=== PATIENT | female | born 1950 | race Hispanic/Latino ===

== ENCOUNTER → 2020-12-10 | Outpatient (CLI) | payer OTHER, MEDICARE ==
[~2020-12-10] MED LIST: ASPI-1197 PO; ATEN50TA PO; CHOL400C9 PO; COLC0.6C3 PO; FEBU40TA PO; FURO20TA4 PO; LEVO200T10 PO; LISI20TA24 PO; MEDR10TA11 PO; PRAV20TA4 PO; TRAM50TA4 PO
== END | disposition home or self-care (01) ==
LOC: SHCH 07:43
PROVIDERS: ATTEND Internal Medicine Cardiovascular Disease
DX: I71.4 Abdominal aortic aneurysm, without rupture (principal); I73.9 Peripheral vascular disease, unspecified; I25.10 Atherosclerotic heart disease of native coronary artery without angina pectoris
CPT/HCPCS: 93880; 93978

== ENCOUNTER → 2021-06-14 | Outpatient (CLI) | payer OTHER, MEDICARE | END | disposition home or self-care (01) | LOC: SHCH 08:31 | PROVIDERS: ATTEND Internal Medicine Cardiovascular Disease | DX: I25.3 Aneurysm of heart (principal); I35.8 Other nonrheumatic aortic valve disorders; R55 Syncope and collapse; I42.0 Dilated cardiomyopathy | CPT/HCPCS: 93306; 93356 ==

== ENCOUNTER 2023-10-28 12:58 | Emergency (ER) | payer OTHER, MEDICARE ==
[~2023-10-28] VITALS: Ht 149.9 cm; Wt 81.6 kg
[2023-10-28] MEDS: ACETAMINOPHEN 500 MG TABLET PO ONE (13:33)
[2023-10-28] MEDS: TETANUS/DIPHTHERIA TOXOID [ADULT] 0.5 ML VIAL IM ONE (13:35)
[2023-10-28 13:56] VITALS: BP 154/78; PULSE 76; RESP 18; O2SAT 96
[2023-10-28] MEDS: OCTYL 2-CYANOACRYLATE 1 EACH TP SCH (14:00)
== END 2023-10-28 14:07 | disposition home or self-care (01) ==
LOC: EDH 12:58
DX: S01.81XA Laceration without foreign body of other part of head, initial encounter (principal); Z79.82 Long term (current) use of aspirin; Z79.890 Hormone replacement therapy; Z79.899 Other long term (current) drug therapy; Z88.8 Allergy status to other drugs, medicaments and biological substances; Z91.041 Radiographic dye allergy status; X58.XXXA Exposure to other specified factors, initial encounter; Y93.89 Activity, other specified; Y92.89 Other specified places as the place of occurrence of the external cause; Y99.8 Other external cause status
CPT/HCPCS: 12011; 90471; 90714

== ENCOUNTER → 2023-11-27 | Outpatient (CLI) | payer OTHER, MEDICARE | END | disposition home or self-care (01) | LOC: RAH 13:29 | PROVIDERS: ATTEND Family Medicine | DX: M85.88 Other specified disorders of bone density and structure, other site (principal); N95.0 Postmenopausal bleeding | CPT/HCPCS: 77080 ==

== ENCOUNTER 2025-01-07 14:33 | Inpatient (IN) | payer OTHER, MEDICARE ==
[~2025-01-07] VITALS: Ht 147.3 cm; Wt 81.7 kg
--- NOTE | 2025-01-07 14:48 | ERN ---
General Chief Complaint: Shortness of Breath Stated Complaint: SOB Time Seen by MD: 14:35 History of Present Illness Initial Comments 58-year-old female with multiple comorbidities including hypertension dyslipidemia CKD obesity nonischemic cardiomyopathy and gout brought in by EMS from the [facility] for chest pains and dyspnea. Patient reports recently she has been having increasing shortness of breath, chest discomfort some pressure associated with exertion. She had an EKG performed at the [facility] which showed some ST changes appreciated in V1 and V2 prompting her to come to the ER today. Medical history dyslipidemia hypertension hypothyroid obesity CAD CKD Allergies: Coded Allergies: iodine (Unverified Allergy, Unknown, 05/06/18) Home Meds Reported Medications Nitroglycerin (Nitroglycerin) 0.4 Mg Tab.subl, 1 TAB SL AD for chest pain, #25 TAB 0 Refills 1st sign of attack; may repeat every 5 mins; if pain persists after 3 in 15 min, medical attention is recommended 01/07/25 Dapagliflozin Propanediol (Farxiga) 10 Mg Tablet, 1 TAB PO DAILY for 30 Days, #30 TAB 0 Refills 01/07/25 Levothyroxine Sodium (Levothyroxine Sodium) 150 Mcg Tablet, 1 TAB PO DAILY for 30 Days, #30 TAB 0 Refills 01/07/25 Allopurinol (Allopurinol) 100 Mg Tablet, 1 TAB PO DAILY for 30 Days, #30 TAB 0 Refills 01/07/25 Ranolazine (RANEXA) 500 Mg Tab.er.12h, 500 MG PO AD, TAB 01/07/25 Ferrous Sulfate (Ferrous Sulfate) 325 Mg (65 Mg Iron) Tablet, 325 MG PO AD, TAB 01/07/25 Febuxostat (Uloric) 40 Mg Tablet, 40 MG PO DAILY, TAB 05/06/18 Colchicine (Colchicine) 0.6 Mg Capsule, 0.6 MG PO QIDP, CAP GOUT 05/06/18 Cholecalciferol (Vitamin D3) (Vitamin D3) 400 Unit Capsule, 400 UNIT PO DAILY, CAP 05/06/18 Tramadol Hcl (Tramadol HCl) 50 Mg Tablet, 1-2 TAB PO TIDP, TAB pain 05/06/18 Pravastatin Sodium (Pravastatin Sodium) 20 Mg Tablet, 20 MG PO HS, TAB 05/06/18 Medroxyprogesterone Acetate (Medroxyprogesterone Acetate) 10 Mg Tablet, 10 MG PO DAILY, TAB 05/06/18 Levothyroxine Sodium (Levothyroxine Sodium) 200 Mcg Tablet, 200 MCG PO DAILY, TAB 05/06/18 Atenolol (Atenolol) 50 Mg Tablet, 50 MG PO DAILY, TAB 05/06/18 Lisinopril (Lisinopril) 20 Mg Tablet, 20 MG PO DAILY, TAB 05/06/18 Furosemide (Furosemide) 20 Mg Tablet, 20 MG PO DAILY, TAB 05/06/18 Aspirin (Aspirin) 81 Mg Tab.chew, 81 MG PO DAILY, TAB.CHEW 05/06/18 Past Medical History Past Medical History: Anemia, CAD, High Cholesterol, Hypertension, Hypothyroid Past Surgical History: Other Surgical History Other: HEART STENT Female( History) History: Not Applicable ROS Dictation CONSTITUTIONAL: No chills, no fever, no weakness, no diaphoresis, no malaise. HEAD/FACE: No signs of trauma. EENT: No eye pain, no blurred vision, no tearing, no double vision, no ear pain, no ear discharge, no nose pain, no nasal congestion, no throat pain, no throat swelling, no mouth pain. RESPIRATORY: No cough, no orthopnea, no SOB, no stridor, no wheezing. CARDIOVASCULAR: Chest pain exertional dyspnea GASTROINTESTINAL/ABDOMINAL: No abdominal pain, no constipation, no diarrhea, no nausea, no vomiting. GENITOURINARY: No abnormal discharge, no dysuria, no frequent urination, no hematuria. No complaints of pain in the genitals. MUSCULOSKELETAL: No back pain, no gout, no joint pain, no joint swelling, no muscle pain, no muscle stiffness, no neck pain. INTEGUMENTARY: No change in color, no change in hair/nails, no dryness, no lesion, no lumps, no rash. NEUROLOGICAL/PSYCH: No anxiety, not depressed, no emotional problem, no headache, no numbness, no pre-existing deficit, no history of seizures, no tremors, no weakness. HEMATOLOGIC/LYMPHATIC: Not anemic, no history of blood clots, no apparent bleeding, no bruising, glands not swollen. All Systems Negative, Except as Noted. Physical Exam Physical Exam Dictation VITAL SIGNS: Reviewed. GENERAL APPEARANCE: Alert, oriented x3, no acute distress, obese. HEAD AND FACE: Non-traumatic. EYES: PERRL, pink conjunctivas, eyelid no trauma, anterior chamber clear. EARS: Pinnas intact and no signs of trauma or erythema. Ear canals clear and no discharge. TMs no erythema. NOSE: No discharge, no bleeding. OROPHARYNX: Mouth normal, teeth no caries, tongue pink. Pharynx clear, no erythema. Tonsils no exudates, no abscesses noted. Mucous membrane moist. NECK: Supple, non-tender, no thyromegaly, no masses, no JVD, no bruits. BREAST: Deferred. CHEST: No tenderness, no crepitus, no paradoxical movement, no retractions. LUNGS: Clear, well-ventilated, symmetric, no rales, no wheezing, no rhonchi, no stridor, good breath sounds bilaterally. HEART: Regular rate, regular rhythm, no murmur, no gallops. VASCULAR: No peripheral edema. ABDOMEN: Soft, positive bowel sounds, nondistended, no guarding, nontender, no rebound, no masses no hepatomegaly, no splenomegaly, no Adrian's sign, no hernias. RECTAL: Deferred. GENITAL: Deferred. NEUROLOGICAL: Normal speech, gross motor function intact, gross sensory function intact. MUSCULOSKELETAL: Neck nontender, full range of motion, back nontender, full range of motion. EXTREMITIES: Nontender, full range of motion. SKIN: Color pink, dry, no turgor, no rash, no lacerations, no abrasions, no contusions. LYMPHATICS: Deferred. Results Laboratory and Microbiology Lab and Micro Result Laboratory Tests Test 01/07/25 14:50 01/07/25 15:50 01/07/25 16:35 01/07/25 16:50 Blood Gas Specimen Type Arterial Arterial Blood pH 7.387 (7.350-7.450) Arterial Blood Partial Pressure CO2 33 mmHg (32-45) Arterial Blood Partial Pressure O2 75.1 mmHg (83.0-108.0) L Arterial Blood HCO3 19.5 mmol/L (21.0-28.0) L Arterial Blood Oxygen Saturation 95.1 % (94.0-98.0) Arterial Blood Base Excess -4.5 mmol/L (-2.0-3.0) L Blood Gas Temperature 37.0 CELSIUS (35.5-37.0) Blood Gas Flow-by 2.00 L/min (0.00-15.00) Blood Gas Vent Mode 2LNC (ROOM AIR) FiO2 28.0 % Blood Gas Specimen Comment RR DR. SOSA White Blood Count 6.6 K/uL (4.8-10.8) Red Blood Count 3.42 MIL/uL (4.00-5.50) L Hemoglobin 11.7 g/dL (12.0-16.0) L Hematocrit 35.7 % (36-48) L Mean Corpuscular Volume 104.4 fL (79-99) H Mean Corpuscular Hemoglobin 34.2 pg (27.0-33.0) H Mean Corpuscular Hemoglobin Concent 32.8 g/dL (32.0-36.0) Red Cell Distribution Width 14.1 % (11.0-15.5) Platelet Count 129 K/uL (130-400) L Mean Platelet Volume 11.7 fL (7.5-10.5) H Immature Granulocyte % (Auto) 0.5 % (0-1) Neutrophils (%) (Auto) 77.1 % (40.0-77.0) H Lymphocytes (%) (Auto) 11.4 % (21.0-51.0) L Monocytes (%) (Auto) 10.2 % (3.0-13.0) Eosinophils (%) (Auto) 0.5 % (0.0-8.0) Basophils (%) (Auto) 0.3 % (0.0-5.0) Neutrophils # (Auto) 5.1 K/uL (1.8-7.7) Lymphocytes # (Auto) 0.8 K/uL (1.0-4.8) L Monocytes # (Auto) 0.7 K/uL (0.1-1.0) Eosinophils # (Auto) 0.03 K/uL (0.00-0.70) Basophils # (Auto) 0.02 K/uL (0.00-0.20) Absolute Immature Granulocyte (auto 0.03 K/uL (0-1) Nucleated Red Blood Cells 0.0 % (0.0-0.19) Prothrombin Time 11.5 SEC (9.6-11.6) Prothromb Time International Ratio 1.09 (0.85-1.15) Activated Partial Thromboplast Time 22.8 SEC (26.3-35.5) L D-Dimer Quantitative (PE/DVT) 1233 ng/mL (0-500) *H B-Type Natriuretic Peptide 1350 pg/mL (0-100) H Sodium Level 142 mmol/L (136-145) Potassium Level 4.4 mmol/L (3.5-5.1) Chloride Level 109 mmol/L (101-111) Carbon Dioxide Level 22 mmol/L (21-32) Blood Urea Nitrogen 18 mg/dL (7-18) Creatinine 1.2 mg/dL (0.5-1.0) H Glomerular Filtration Rate Calc 47 mL/min (>90) Random Glucose 94 mg/dL (70-105) Total Calcium 8.4 mg/dL (8.5-10.1) L Magnesium Level 1.90 mg/dL (1.80-2.40) Total Creatine Kinase 33 U/L (21-232) Troponin I High Sensitivity 35 ng/L (4-50) Triglycerides Level 48 mg/dL (30-200) Cholesterol Level 112 mg/dL (<200) LDL Cholesterol 60 mg/dL (0-99) HDL Cholesterol 47 mg/dL (35-85) Urine Color YELLOW (YELLOW) Urine Appearance CLEAR (CLEAR) Urine pH 5.5 (5.0-8.0) Urine Specific [place] 1.021 (1.001-1.031) Urine Protein 70 mg/dL (NEGATIVE) H Urine Glucose (UA) >=1000 mg/dL (NEGATIVE) H Urine Ketones NEGATIVE mg/dL (NEGATIVE) Urine Occult Blood +- (TRACE) (NEGATIVE) H Urine Nitrate NEGATIVE (NEGATIVE) Urine Bilirubin NEGATIVE mg/dL (NEGATIVE) Urine Urobilinogen 0.2 mg/dL (0.2-1.0) Urine Leukocyte Esterase NEGATIVE Neisha/uL Urine RBC 2-5 /HPF (0-1) H Urine WBC 2-5 /HPF (0-1) H Urine Squamous Epithelial Cells RARE /HPF (0-2) Urine Bacteria None /HPF (None Seen) Urine Other Casts 1 /LPF (None Seen) Urine Yeast RARE /HPF (None Seen) Test 01/07/25 20:51 Troponin I High Sensitivity 40 ng/L (4-50) Labs Reviewed?: Yes EKG/XRAY/US/CT/MRI EKG Comment Date: 01/07/25 Time: 15:39 Rate: 73 EKG interpretation: Sinus rhythm, probable left atrial enlargement, left bundle branch block, no STEMI Reviewed by ED Attending X-RAY Comment REASON: chest pain ORDERING PHYSICIAN: YASH SOSA DO PROCEDURE: CXR1VW - CHEST 1VW CHEST 1VW HISTORY: Chest pain COMPARISON: 05/06/2018 FINDINGS: A frontal projection of the chest was obtained. Mild bilateral pulmonary infiltrates are seen may be related to mild pulmonary vascular congestion with possible superimposed pneumonitis. The heart is borderline enlarged. Degenerative changes are seen. No evidence of aortic calcification is seen. IMPRESSION: 1. Mild bilateral pulmonary infiltrates are seen may be related to mild pulmonary vascular congestion with possible superimposed pneumonitis. DICTATED BY: CHUCKIE DEWITT MD DATE: 01/07/[address] Scan Comment REASON: dyspnea, elevated d-dimer ORDERING PHYSICIAN: YASH SOSA DO PROCEDURE: CHES PE - CT CHEST PE PROTOCOL WWO CONT CT CHEST PE PROTOCOL WWO CONT HISTORY: Dyspnea COMPARISON: None TECHNIQUE: CT angiography of the chest was performed. The study was performed using angiographic technique with maximum intensity projection reconstruction images. Patient was given 75 cc of Omnipaque through intravenous route. FINDINGS: The study is limited due to poor opacification of pulmonary vasculature. No CT evidence of filling defect is seen to suggest pulmonary embolus. No CT evidence of aortic dissection is seen. There are bilateral pulmonary infiltrates with right more than left. No CT evidence of pleural effusion or pericardial effusion is seen. The heart is enlarged. Coronary artery calcifications are seen. No evidence of adrenal mass is seen. Degenerative changes of the spine are noted. IMPRESSION: 1. No CT evidence of acute pulmonary embolus is seen. There are bilateral pulmonary infiltrates with right more than left. CT was performed with one or more following dose reduction techniques: automated exposure control, adjustment of the mA and kv according to patient's size, or use of a iterative reconstruction technique. DICTATED BY: CHUCKIE DEWITT MD DATE: 01/07/251926 MDM MDM: Differential diagnosis: PE, NV, angina Rationale: 58-year-old female with multiple comorbidities including hypertension dyslipidemia CKD obesity nonischemic cardiomyopathy and gout brought in by EMS from the [facility] for chest pains and dyspnea. Patient reports recently she has been having increasing shortness of breath, chest discomfort some pressure associated with exertion. She had an EKG performed at the [facility] which showed some ST changes appreciated in V1 and V2 prompting her to come to the ER today. Medical history dyslipidemia hypertension hypothyroid obesity CAD CKD Patient on 2 L of O2 nasal cannula. Labs obtained indicate mild anemia with hemoglobin of 11.7, D-dimer 1233, BNP 1 350, creatinine 1.2 consistent with CKD, UA negative for urinary tract infection. Chest x-ray shows mild bilateral pulmonary infiltrates related to pulmonary vascular congestion possible superimposed pneumonitis. Chest CT negative for pulmonary embolism, bilateral infiltrates. Lasix, methylprednisolone and Benadryl administered in the ED. patient was educated on findings, diagnosis and decision for admission. Patient verbalized understanding and agrees with admission. Case discussed with benchmark who accepted admission. There are no social concerns with this patient. I independently interpreted the test that were performed, results were reviewed by me and considered findings on radiology if ordered. Medical management and examination interpretation discussions were had by me with other qualified healthcare professionals as indicated for the patient's care. ED Course Orders Procedure Category Date Status Time Cbc With Differential LAB 01/07/25 Complete 14:39 Prothrombin Time With LAB 01/07/25 Complete INR 14:39 B-Type Natriuretic LAB 01/07/25 Complete Peptide 14:39 Lipid Panel LAB 01/07/25 Complete 14:39 Chest 1vw RAD 01/07/25 Resulted 14:39 12 Lead Ekg Tracing- EKG 01/07/25 Complete Technical 14:39 Magnesium LAB 01/07/25 Complete 14:39 Creatine Kinase, Total LAB 01/07/25 Complete 14:39 Troponin I High LAB 01/07/25 Complete Sensitivity 14:39 Partial LAB 01/07/25 Complete Thromboplastin Time 14:39 Basic Metabolic Panel LAB 01/07/25 Complete 14:39 D-Dimer LAB 01/07/25 Complete 14:39 Arterial Blood Gas RT 01/07/25 Transmitted 14:39 Arterial Blood Gas LAB 01/07/25 Complete 14:50 Ct Chest Pe Protocol CT 01/07/25 Resulted Wwo Cont 17:16 Methylprednisolone PHA 01/07/25 Complete Succ 40mg (Solu-Medro 18:00 Diphenhydramine Hcl PHA 01/07/25 Complete (Benadryl Inj) 18:00 Iohexol (Omnipaque) PHA 01/07/25 Complete 18:48 Urinalysis Profile LAB 01/07/25 Complete 18:59 Furosemide 40mg Vial PHA 01/07/25 Complete (Lasix 40mg Vial) 20:30 Troponin I High LAB 01/07/25 Complete Sensitivity 20:25 Hydralazine 20mg Inj PHA 01/07/25 Complete (Apresoline 20mg In 21:30 Hydralazine 20mg Inj PHA 01/07/25 Complete (Apresoline 20mg In 21:25 Aspirin 81mg Chew Tab PHA 01/08/25 In Process (Aspirin 81mg Chew 09:00 Atorvastatin 40mg PHA 01/08/25 In Process (Lipitor 40mg) 21:00 Nitroglycerin 0.4mg PHA 01/07/25 In Process Sl Tab (Nitrostat) 23:00 Troponin I High LAB 01/08/25 Logged Sensitivity 09:00 Troponin I High LAB 01/08/25 Logged Sensitivity 13:00 Troponin I High LAB 01/08/25 Logged Sensitivity 17:00 Troponin I High LAB 01/08/25 Logged Sensitivity 21:00 Ceftriaxone 1g Vial PHA 01/07/25 In Process (Rocephine 1g Inj) 23:00 Azithromycin 500mg+Ns PHA 01/07/25 In Process 250ml (Azithromyci 23:00 Ipratropium/Albuterol PHA 01/08/25 In Process Neb (Duoneb) 00:00 Current Medications Medications (Trade) Dose Ordered Sig/Melisa Route PRN Reason Start Time Stop Time Status Last Admin Dose Admin Diphenhydramine HCl (BENAdryl INJ) 25 mg ONCE ONCE IV 01/07/25 18:00 01/07/25 18:01 DC 01/07/25 18:45 Furosemide (LASix 40MG VIAL) 40 mg ONCE ONCE IV 01/07/25 20:30 01/07/25 20:31 DC 01/07/25 20:23 Hydralazine HCl (APRESOLine 20MG INJ) 10 mg ONCE ONCE IV 01/07/25 21:30 01/07/25 21:31 DC 01/07/25 21:26 Hydralazine HCl (APRESOLine 20MG INJ) 20 mg STK-MED ONCE .ROUTE 01/07/25 21:25 01/07/25 21:26 DC Iohexol (Omnipaque) 75 ml STK-MED ONCE IV 01/07/25 18:48 01/07/25 18:48 DC Methylprednisolone Sodium Succinate (Solu-medROL 40MG) 40 mg ONCE ONCE IVP 01/07/25 18:00 01/07/25 18:01 DC 01/07/25 18:45 Vital Signs Date Time Temp Pulse Resp B/P (MAP) Pulse Ox O2 Delivery O2 Flow Rate FiO2 01/07/25 21:46 98.4 69 18 156/72 95 Nasal Cannula* 2.0 N/A 01/07/25 20:18 98.4 75 18 175/97 97 Nasal Cannula* 2 01/07/25 18:43 198/98 Room Air* 0 01/07/25 18:34 75 18 166/90 96 Nasal Cannula* 2 01/07/25 16:53 78 18 157/90 97 Room Air* 0 01/07/25 15:29 98.4 74 18 169/77 95 Nasal Cannula* 2 01/07/25 14:35 72 20 160/98 95 Nasal Cannula 2.0 DX & DISP Disposition: Inpatient Decision to Admit Date: Jan 07, 2025 Departure Impression: Primary Impression: Unstable angina Additional Impressions: Hypoxic, Elevated d-dimer, Elevated brain natriuretic peptide (BNP) level Condition: Stable Referrals: YOLANDA LUNDBERG MD (PCP) I performed the substantive portion of the visit. I have reviewed and personally made and approve the management plan that is documented in the notes by myself or the JOZEF. I acknowledge full responsibility for the patient's management plan. YASH SOSA DO Jan 07, 2025 14:47 GEORGE WALKER Jan 07, 2025 20:27
[2025-01-07 14:51] LABS: ABG BASE EXCESS -4.5 mmol/L (-2.0-3.0); ABG HCO3 19.5 mmol/L (21.0-28.0); ABG OXYGEN SATURATION 95.1 % (94.0-98.0); ABG PCO2 33 mmHg (32-45); ABG PH 7.387 (7.350-7.450); PO2, ARTERIAL BG 75.1 mmHg (83.0-108.0); VENT MODE, BG 2LNC (ROOM AIR)
[2025-01-07 15:59] LABS: BASOPHILS # (AUTO) 0.02 K/uL (0.00-0.20); BASOPHILS % (AUTO) 0.3 % (0.0-5.0); EOSINOPHILS # (AUTO) 0.03 K/uL (0.00-0.70); EOSINOPHILS % (AUTO) 0.5 % (0.0-8.0); HEMATOCRIT 35.7 % (36-48); IMMATURE GRANULOCYTE ABSOLUTE 0.03 K/uL (0-1); LYMPHOCYTES # (AUTO) 0.8 K/uL (1.0-4.8); LYMPHOCYTES % (AUTO) 11.4 % (21.0-51.0); MEAN CORPUSCULAR HEMOGLOBIN 34.2 pg (27.0-33.0); MEAN CORPUSCULAR HGB CONC 32.8 g/dL (32.0-36.0); MEAN CORPUSCULAR VOLUME 104.4 fL (79-99); MONOCYTES # (AUTO) 0.7 K/uL (0.1-1.0); MONOCYTES % (AUTO) 10.2 % (3.0-13.0); NEUTROPHILS # (AUTO) 5.1 K/uL (1.8-7.7); NEUTROPHILS % (AUTO) 77.1 % (40.0-77.0); PLATELET COUNT (AUTO) 129 K/uL (130-400); RED BLOOD CELL COUNT(AUTO) 3.42 MIL/uL (4.00-5.50); RED CELL DISTRIBUTION WIDTH 14.1 % (11.0-15.5); WHITE BLOOD COUNT (AUTO) 6.6 K/uL (4.8-10.8)
[2025-01-07 16:16] LABS: B-TYPE NATRIURETIC PEPTIDE 1350 pg/mL (0-100)
[2025-01-07 16:52] LABS: INR 1.09 (0.85-1.15); PROTHROMBIN TIME 11.5 SEC (9.6-11.6)
[2025-01-07 16:54] LABS: PARTIAL THROMBOPLASTIN TIME 22.8 SEC (26.3-35.5)
[2025-01-07 16:55] LABS: CREATININE 1.2 mg/dL (0.5-1.0); POTASSIUM 4.4 mmol/L (3.5-5.1)
[2025-01-07 17:00] LABS: MAGNESIUM 1.9 mg/dL (1.80-2.40)
--- NOTE | 2025-01-07 17:02 | HMCIMG ---
CHEST 1VW HISTORY: Chest pain COMPARISON: 05/06/2018 FINDINGS: A frontal projection of the chest was obtained. Mild bilateral pulmonary infiltrates are seen may be related to mild pulmonary vascular congestion with possible superimposed pneumonitis. The heart is borderline enlarged. Degenerative changes are seen. No evidence of aortic calcification is seen. IMPRESSION: 1. Mild bilateral pulmonary infiltrates are seen may be related to mild pulmonary vascular congestion with possible superimposed pneumonitis.
[2025-01-07] MEDS: DiphenhydrAMINE HCL 50 MG/ML VIAL IV ONE (18:45)
[2025-01-07] MEDS: Solu-medROL 40MG VIAL IVP ONE (18:45)
--- NOTE | 2025-01-07 18:45 | NUR ---
PT WAS MEDICATED ORDERED TO PREVENT ALLERY FROM IV CONTRAST
[2025-01-07] MEDS ORDERED: IOHEXOL-350 75 ML VIAL IV ONE (18:48)
[2025-01-07 19:15] LABS: APPEARANCE,URINE CLEAR (CLEAR); BILIRUBIN,URINE NEGATIVE (NEGATIVE); COLOR,URINE YELLOW (YELLOW); GLUCOSE, URINE (UA) >=1000 mg/dL (NEGATIVE); KETONES,URINE NEGATIVE (NEGATIVE); LEUKOCYTE ESTERASE ,URINE NEGATIVE Leu/uL (NEGATIVE); NITRATE,URINE NEGATIVE (NEGATIVE); PH,URINE 5.5 (5.0-8.0); PROTEIN,URINE 70 mg/dL (NEGATIVE); UROBILINOGEN,URINE 0.2 mg/dL (0.2-1.0)
[2025-01-07 19:16] LABS: ADD UA MICROSCOPIC YES
[2025-01-07 19:17] LABS: MUCUS,URINE RARE LPF (None Seen); OTHER CASTS, URINE 1 /LPF (None Seen); SQUAMOUS EPITHELIAL CELL,UR RARE /HPF (0-2); YEAST,URINE BUDDING RARE /HPF (None Seen)
--- NOTE | 2025-01-07 19:38 | HMCIMG ---
CT CHEST PE PROTOCOL WWO CONT HISTORY: Dyspnea COMPARISON: None TECHNIQUE: CT angiography of the chest was performed. The study was performed using angiographic technique with maximum intensity projection reconstruction images. Patient was given 75 cc of Omnipaque through intravenous route. FINDINGS: The study is limited due to poor opacification of pulmonary vasculature. No CT evidence of filling defect is seen to suggest pulmonary embolus. No CT evidence of aortic dissection is seen. There are bilateral pulmonary infiltrates with right more than left. No CT evidence of pleural effusion or pericardial effusion is seen. The heart is enlarged. Coronary artery calcifications are seen. No evidence of adrenal mass is seen. Degenerative changes of the spine are noted. IMPRESSION: 1. No CT evidence of acute pulmonary embolus is seen. There are bilateral pulmonary infiltrates with right more than left. CT was performed with one or more following dose reduction techniques: automated exposure control, adjustment of the mA and kv according to patient's size, or use of a iterative reconstruction technique.
[2025-01-07] MEDS: furoSEMIDE 40MG VIAL IV ONE (20:23)
[2025-01-07] MEDS: hydrALAZine 20MG/ML VIAL IV ONE (21:26)
[2025-01-07] MEDS: hydrALAZine 20MG/ML VIAL ONE (21:27)
[2025-01-07] MEDS ORDERED: NITR0.4T50 SL (21:43)
[2025-01-07] MEDS ORDERED: DAPA10TA PO (21:43)
[2025-01-07] MEDS ORDERED: FERR-72 PO (21:43)
[2025-01-07] MEDS ORDERED: LEVO150T11 PO (21:43)
[2025-01-07] MEDS ORDERED: ALLO100T PO (21:43)
[2025-01-07] MEDS ORDERED: RANO500T2 PO (21:43)
[2025-01-07] MEDS: AZITHROMYCIN 500MG+NS 250ML 250 ML IVPB SCH (22:52)
[2025-01-07] MEDS: cefTRIAXone 1G VIAL IVPB SCH (22:52)
--- NOTE | 2025-01-07 22:52 | HP ---
[facility] HISTORY & PHYSICAL Date Patient Seen: Jan 07, 2025 Time of Visit: 22:44 Supervising Physician: DR. CHEN Primary Care Physician: DR. CHUYITA GUERRERO Outpatient Specialists: [ ] Inpatient Consults: [ ] PROBLEM LIST: 1. UNSTABLE ANGINA 2. CHRONIC KIDNEY DISEASE STAGE 3 3. ESSENTIAL HYPERTENSION 4. ACUTE COMPLICATED CYSTITIS 5. MORBID OBESITY 6. BILATERAL LOWER LOBE PNEUMONIA 7. ACUTE HYPOXIC RESPIRATORY FAILURE CHIEF COMPLAINT: Chest pain, shortness of breath. HPI: Patient is a 74-year-old female with past medical history significant for hypertension, hyperlipidemia, coronary artery disease, cardiomyopathy, and a surgical history of hysterectomy, cardiac stent placement, presented to emergency department complaining of midsternal chest pain associated with cough for two days. Patient reports that for the past two days, she has been experiencing increased work of breathing associated with midsternal chest pain rated as 6/10 in pain scale. Today, patient decided come to the emergency department for further evaluation and treatment. Patient denies fever, chills, nausea, vomiting, diarrhea, dizziness, or any other symptoms. The workup in the emergency department shows a D-dimer of 1233, elevated BNP , creatinine 1.2, GFR of 47. CTA chest shows bilateral lower lobe pneumonia. Chest x-ray showed pulmonary vascular congestion. Patient will be admitted to medical telemetry floor for further evaluation and treatment. PAST MEDICAL HX: see above PAST SURGICAL HX: noncontributory SOCIAL HISTORY: No tobacco, ETOH, or illicit drug use Coded Allergies: iodine (Unverified Allergy, Unknown, 05/06/18) REVIEW OF SYSTEMS: 12 point ROS reviewed with patient. Pertinent positives mentioned above. Otherwise negative. PHYSICAL EXAM: GENERAL: alert, weak, awake oriented x 3 HEENT: EOMI, Sclera non icteric, moist mucosa NECK: Supple, no JVD, trachea midline LUNGS: Diminished bilaterally, oxygen 2 L nasal cannula HEART: Regular rate and rhythm. Normal S1 and S2, without murmurs ABD: Abdomen soft, nontender. Bowel sounds present EXT: No clubbing cyanosis or edema NEURO: Alert and oriented to person, follows commands Vital Signs (last 8hr) Date Time Temp Pulse Resp B/P (MAP) Pulse Ox O2 Delivery O2 Flow Rate FiO2 01/07/25 21:46 98.4 70 18 162/72 95 Nasal Cannula* 2.0 N/A 01/07/25 20:18 98.4 75 18 175/97 97 Nasal Cannula* 2 28 01/07/25 18:43 198/98 Room Air* 0 21 01/07/25 18:34 75 18 166/90 96 Nasal Cannula* 2 28 01/07/25 16:53 78 18 157/90 97 Room Air* 0 21 01/07/25 15:29 98.4 74 18 169/77 95 Nasal Cannula* 2 28 LABS: Hematology Labs: Test 01/07/25 15:50 Range/Units White Blood Count 6.6 4.8-10.8 K/uL Red Blood Count 3.42 L 4.00-5.50 MIL/uL Hemoglobin 11.7 L 12.0-16.0 g/dL Hematocrit 35.7 L 36-48 % Mean Corpuscular Volume 104.4 H 79-99 fL Mean Corpuscular Hemoglobin 34.2 H 27.0-33.0 pg Mean Corpuscular Hemoglobin Concent 32.8 32.0-36.0 g/dL Red Cell Distribution Width 14.1 11.0-15.5 % Platelet Count 129 L 130-400 K/uL Mean Platelet Volume 11.7 H 7.5-10.5 fL Immature Granulocyte % (Auto) 0.5 0-1 % Neutrophils (%) (Auto) 77.1 H 40.0-77.0 % Lymphocytes (%) (Auto) 11.4 L 21.0-51.0 % Monocytes (%) (Auto) 10.2 3.0-13.0 % Eosinophils (%) (Auto) 0.5 0.0-8.0 % Basophils (%) (Auto) 0.3 0.0-5.0 % Neutrophils # (Auto) 5.1 1.8-7.7 K/uL Lymphocytes # (Auto) 0.8 L 1.0-4.8 K/uL Monocytes # (Auto) 0.7 0.1-1.0 K/uL Eosinophils # (Auto) 0.03 0.00-0.70 K/uL Basophils # (Auto) 0.02 0.00-0.20 K/uL Absolute Immature Granulocyte (auto 0.03 0-1 K/uL Nucleated Red Blood Cells 0.0 0.0-0.19 % Chemistry Labs: Test 01/07/25 20:51 01/07/25 16:35 01/07/25 15:50 Range/Units Troponin I High Sensitivity 40 4-50 ng/L Sodium Level 142 136-145 mmol/L Potassium Level 4.4 3.5-5.1 mmol/L Chloride Level 109 101-111 mmol/L Carbon Dioxide Level 22 21-32 mmol/L Blood Urea Nitrogen 18 7-18 mg/dL Creatinine 1.2 H 0.5-1.0 mg/dL Glomerular Filtration Rate Calc 47 >90 mL/min Random Glucose 94 70-105 mg/dL Total Calcium 8.4 L 8.5-10.1 mg/dL Magnesium Level 1.90 1.80-2.40 mg/dL Total Creatine Kinase 33 21-232 U/L Triglycerides Level 48 30-200 mg/dL Cholesterol Level 112 <200 mg/dL LDL Cholesterol 60 0-99 mg/dL HDL Cholesterol 47 35-85 mg/dL B-Type Natriuretic Peptide 1350 H 0-100 pg/mL Coagulation Labs: Test 01/07/25 15:50 Range/Units Prothrombin Time 11.5 9.6-11.6 SEC Prothromb Time International Ratio 1.09 0.85-1.15 Activated Partial Thromboplast Time 22.8 L 26.3-35.5 SEC D-Dimer Quantitative (PE/DVT) 1233 *H 0-500 ng/mL DIAGNOSTICS / RADIOLOGY RESULTS: [ ] PLAN NEURO: Minimize central acting medications as possible. Maintain fall precautions, adequate lighting during the day PULMONARY: Supplemental 02 as needed. Maintain aspiration precautions at all times DuoNebs every 6 hours CARDIOVASCULAR: Follow hemodynamics. Vital signs per facility protocol Aspirin 81 mg p.o. daily Nitroglycerin 0.4 mg sublingual p.r.n. for moderate chest pain Atorvastatin 40 mg p.o. at bedtime 2D echo cardiology read Serial troponin level GI & NUTRITION: Continue with nutritional support. Continue stool softeners and laxatives as needed. KIDNEYS & ELECTROLYTES: Strict monitoring of intake, output and overall fluid balance. Avoid nephrotoxic medications to the extent possible. Medications to be dosed according to renal function. Monitor electrolytes and replace as needed All nephrotoxic drugs ENDOCRINE: Maintain blood glucose between 100-180 at all times. Hypoglycemia protocol in place INFECTIOUS DISEASE: Trend temperature, WBC and procalcitonin level Follow cultures, deescalate antibiotics as soon as possible. Panculture if new onset fever ONCOLOGY/HEMATOLOGY/COAGULATION: Monitor for s/s of bleeding Monitor hemoglobin, coagulation studies as needed SKIN: Pressure ulcer prevention per facility protocol Specialty mattress ORTHO/REHAB: Continue PT/OT Prophylaxis: Continue GI and DVT prophylaxis Code Status: Full Resuscitation Disposition: TBD Other: Total patient care time exceeds 35 minutes excluding all procedures. Case discussed with . KKEE HUANG Jan 07, 2025 22:52
[2025-01-07] MEDS ORDERED: acetaMINOPHEN 325 MG TAB PO PRN (23:00)
[2025-01-07] MEDS ORDERED: ondanSETRON 4MG INJ IV PRN (23:00)
[2025-01-07] MEDS ORDERED: MAG/ALUM/SIMETH 30 ML UDCUP PO PRN (23:00)
[2025-01-07] MEDS ORDERED: NITROGLYCERIN 0.4 MG SL TAB SL PRN (23:00)
[2025-01-07] MEDS ORDERED: LACTULOSE 20 GM/30 ML UDCUP PO PRN (23:00)
[2025-01-07] MEDS ORDERED: morPHINE 2 MG SYG IV PRN (23:00)
[2025-01-07 23:45] VITALS: PULSE 61; RESP 18; O2SAT 98
[2025-01-07] MEDS: IpraTROPium/alBUTERol SULFATE 3 ML SOLUTION IH SCH ×2 (23:45→23:56)
[2025-01-08] VITALS (14 sets, daily range): BP systolic 116–153; BP diastolic 61–80; PULSE 74–104; RESP 17–20; TEMP 97.8–99.3; O2SAT 95–99
[2025-01-08] MEDS: FAMOTIDINE 20MG TAB PO SCH (00:05)
[2025-01-08] MEDS: HEParin 5,000 UNIT VIAL SQ SCH (00:05)
--- NOTE | 2025-01-08 08:40 | EKG ---
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
[2025-01-08] MEDS: ASPIRIN 81MG CHEW TAB PO SCH (10:03)
--- NOTE | 2025-01-08 13:11 | CONS ---
[facility] CONSULTATION NOTE Date Patient Seen: January 08, 2025 Time of Visit: 13:05 Requesting Physician: Cody Reason for Consultation: exertional Chest pain and sob History of Present Illness: Pt is a 74 year old female who saw us in the office yesterday. Pt has a past medical history of HTN, HLD, CKD, morbid obesity and CAD who was complaining of increased SOB, chest pressure and had recently undergone medication adjustments increasing concern for worsening renal failure with recent gout flare. Pt had a significant widening of the QRS and ST changes in V1 and V2 and was sent to the ER yesterday for prompt evaluation. Pt's troponin levels were negative but she did have D-dimer elevation. CTA chest was performed that demonstrated no PE, but bilateral infiltrates, right greater than left appreciated. Pt denies fever or chills. Echo is current pending. Past Medical History: HTN HLD Obesity CKD stg III anemia Gout Hypothyroidism chronic diastolic CHF Past Surgical History: left heart cath 2014 Social History: Lives alone Habits: [Never] smoker. [Denies] alcohol consumption. [Denies] illicit drug use Home Meds: Farxiga Allopurinol Off lasix atenolol lisinopril levothyroxine pravastatin asa ranolazine vit d ferrous sulfate medroxyprogesterone Current Meds: [ ] Review of Systems: CONST: [No fever, fatigue, or weight changes.] EYES: [No recent vision problems.] ENT: [No congestion, ear pain, or sore throat.] C/V: [+chest pain, nopalpitations, + edema.] RESP: [+ cough, congestion, + wheezing + shortness of breath.] GI: [No abdominal pain, nausea, vomiting, constipation, or diarrhea.] : [No incontinence or dysuria.] SKIN: [No rash.] NEURO: [No headache, focal numbness or weakness, dizziness, or seizures.] PSYCH: [No depression or anxiety.] HEME: [No abnormal bruising or bleeding.] LYMPH: [No swollen glands.] Physical Examination: GENERAL: [No acute distress.] HEAD: [Normal with no signs of head trauma.] EYES: [PERRLA, EOMI, conjunctiva and sclera normal.] ENT: [Hearing grossly intact, normal oropharynx.] NECK: Short and thick, Supple without JVD. There is no tenderness, lymphadenopathy, or masses. No thyromegaly. Normal carotid upstrokes without bruits.] LUNGS: [Diminished breath sounds bilaterally. There are right basilar rales, exp wheezes, no rhonchi.] HEART: [Normal rate and rhythm. Normal S1 and S2 without murmurs, gallop or rub.] VASC: [Peripheral pulses +2 bilaterally.] ABD: [Obese, Bowel sounds normal, soft, nontender, no masses, no organomegaly. No audible bruits.] : [Not examined] LYMPH: [No lymphadenopathy noted.] EXT: [No clubbing, cyanosis or edema.] SKIN: [No rashes or lesions noted.] NEURO: [Awake, alert, and oriented x3. No focal sensory or strength deficits noted.] Vital Signs (last 8hr) Date Time Temp Pulse Resp B/P (MAP) Pulse Ox O2 Delivery O2 Flow Rate FiO2 01/08/25 12:01 97.9 92 17 153/80 94 Room Air 01/08/25 11:30 90 18 N/A Room Air 21 01/08/25 11:28 90 18 01/08/25 08:00 98.6 92 18 134/71 93 Room Air 01/08/25 06:38 74 18 N/A Room Air 21 01/08/25 06:27 82 18 01/08/25 06:27 82 18 N/Cannula Low lpm 2.0 Laboratory: [ ] Hematology Labs: Test 01/07/25 15:50 Range/Units White Blood Count 6.6 4.8-10.8 K/uL Red Blood Count 3.42 L 4.00-5.50 MIL/uL Hemoglobin 11.7 L 12.0-16.0 g/dL Hematocrit 35.7 L 36-48 % Mean Corpuscular Volume 104.4 H 79-99 fL Mean Corpuscular Hemoglobin 34.2 H 27.0-33.0 pg Mean Corpuscular Hemoglobin Concent 32.8 32.0-36.0 g/dL Red Cell Distribution Width 14.1 11.0-15.5 % Platelet Count 129 L 130-400 K/uL Mean Platelet Volume 11.7 H 7.5-10.5 fL Immature Granulocyte % (Auto) 0.5 0-1 % Neutrophils (%) (Auto) 77.1 H 40.0-77.0 % Lymphocytes (%) (Auto) 11.4 L 21.0-51.0 % Monocytes (%) (Auto) 10.2 3.0-13.0 % Eosinophils (%) (Auto) 0.5 0.0-8.0 % Basophils (%) (Auto) 0.3 0.0-5.0 % Neutrophils # (Auto) 5.1 1.8-7.7 K/uL Lymphocytes # (Auto) 0.8 L 1.0-4.8 K/uL Monocytes # (Auto) 0.7 0.1-1.0 K/uL Eosinophils # (Auto) 0.03 0.00-0.70 K/uL Basophils # (Auto) 0.02 0.00-0.20 K/uL Absolute Immature Granulocyte (auto 0.03 0-1 K/uL Nucleated Red Blood Cells 0.0 0.0-0.19 % Chemistry Labs: Test 01/08/25 09:23 01/07/25 16:35 01/07/25 15:50 Range/Units Troponin I High Sensitivity 31 4-50 ng/L Sodium Level 142 136-145 mmol/L Potassium Level 4.4 3.5-5.1 mmol/L Chloride Level 109 101-111 mmol/L Carbon Dioxide Level 22 21-32 mmol/L Blood Urea Nitrogen 18 7-18 mg/dL Creatinine 1.2 H 0.5-1.0 mg/dL Glomerular Filtration Rate Calc 47 >90 mL/min Random Glucose 94 70-105 mg/dL Total Calcium 8.4 L 8.5-10.1 mg/dL Magnesium Level 1.90 1.80-2.40 mg/dL Total Creatine Kinase 33 21-232 U/L Triglycerides Level 48 30-200 mg/dL Cholesterol Level 112 <200 mg/dL LDL Cholesterol 60 0-99 mg/dL HDL Cholesterol 47 35-85 mg/dL B-Type Natriuretic Peptide 1350 H 0-100 pg/mL Coagulation Labs: Test 01/07/25 15:50 Range/Units Prothrombin Time 11.5 9.6-11.6 SEC Prothromb Time International Ratio 1.09 0.85-1.15 Activated Partial Thromboplast Time 22.8 L 26.3-35.5 SEC D-Dimer Quantitative (PE/DVT) 1233 *H 0-500 ng/mL Diagnostics / Radiology: PATIENT: ANGELA GUY MR#: [id number] : 1950 SEX: F AGE: 74 LOCATION: [facility] ORDER 16 STATUS: REG ER REPORT#: [id number] SERVICE 15 REASON: dyspnea, elevated d-dimer ORDERING PHYSICIAN: YASH SOSA DO PROCEDURE: CHES PE - CT CHEST PE PROTOCOL WWO CONT CT CHEST PE PROTOCOL WWO CONT HISTORY: Dyspnea COMPARISON: None TECHNIQUE: CT angiography of the chest was performed. The study was performed using angiographic technique with maximum intensity projection reconstruction images. Patient was given 75 cc of Omnipaque through intravenous route. FINDINGS: The study is limited due to poor opacification of pulmonary vasculature. No CT evidence of filling defect is seen to suggest pulmonary embolus. No CT evidence of aortic dissection is seen. There are bilateral pulmonary infiltrates with right more than left. No CT evidence of pleural effusion or pericardial effusion is seen. The heart is enlarged. Coronary artery calcifications are seen. No evidence of adrenal mass is seen. Degenerative changes of the spine are noted. IMPRESSION: 1. No CT evidence of acute pulmonary embolus is seen. There are bilateral pulmonary infiltrates with right more than left. CT was performed with one or more following dose reduction techniques: automated exposure control, adjustment of the mA and kv according to patient's size, or use of a iterative reconstruction technique. DICTATED BY: CHUCKIE DEWITT MD DATE: 01/07/251926 ELECTRONICALLY SIGNED BY: CHUCKIE DEWITT MD DATE: 01/07/251937 Assessment: NSTEMI ruled out Acute hypoxemic respiratory failure Pneumonia vs CHF exacerbation Morbid obesity HTN HLD CKD stage III Plan: Troponin serially has been negative Pt had EKG changes, associated SOB and chest pain PE ruled out Continues on asa Continue atenolol Gentle diuresis. echo pending. REVA MAN NP January 08, 2025 13:11
--- NOTE | 2025-01-08 13:37 | PN ---
[facility] PROGRESS NOTE Date Patient Seen: January 08, 2025 Time of Visit: 13:28 Supervising Physician: [Dr. Estrada] Primary Care Physician: DR. CHUYITA GUERRERO Outpatient Specialists: [ ] Inpatient Consults: [[facility]] PROBLEM LIST: UNSTABLE ANGINA, negative troponin ACUTE HYPOXIC RESPIRATORY FAILURE, resolved BILATERAL LOWER LOBE PNEUMONIA, treated Acute on chronic diastolic congestive heart failure with mrEF per last echo Hypothyroidism Gout CHRONIC KIDNEY DISEASE STAGE 3 ESSENTIAL HYPERTENSION MORBID OBESITY INTERVAL HISTORY: [Patient is evaluated at bedside. 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 Her labs revealed a relatively normal CBC and BNP. ABG was within normal limits. Serial troponins have been negative, EKG was read without acute findings. BNP was elevated at 1350. And D-dimer was elevated as well, CTA of the chest was negative for PE but revealed bilateral lower lobe infiltrates, R> L. she denies any current chest pain but states she has been experiencing chest pain that was worsened with activity for the last week on and off. Chest pain episodes with last typically about 5-10 minutes before resolving with rest. She is pending an echocardiogram. Cardiology was consulted, pending recommendation.] REVIEW OF SYSTEMS: 12 point ROS reviewed with patient. Pertinent positives mentioned above. Otherwise negative. PHYSICAL EXAM: GENERAL: alert, weak, awake oriented x 3 HEENT: EOMI, Sclera non icteric, moist mucosa NECK: Supple, no JVD, trachea midline LUNGS: Diminished bilaterally, oxygen 2 L nasal cannula HEART: Regular rate and rhythm. Normal S1 and S2, without murmurs ABD: Abdomen soft, nontender. Bowel sounds present EXT: No clubbing cyanosis or edema NEURO: Alert and oriented to person, follows commands Vital Signs (last 8hr) Date Time Temp Pulse Resp B/P (MAP) Pulse Ox O2 Delivery O2 Flow Rate FiO2 01/08/25 12:01 97.9 92 17 153/80 94 Room Air 01/08/25 11:30 90 18 N/A Room Air 01/08/25 11:28 90 18 01/08/25 08:00 98.6 92 18 134/71 93 Room Air 01/08/25 06:38 74 18 N/A Room Air 01/08/25 06:27 82 18 01/08/25 06:27 82 18 N/Cannula Low lpm 2.0 LABS: Hematology Labs: Test 01/07/25 15:50 Range/Units White Blood Count 6.6 4.8-10.8 K/uL Red Blood Count 3.42 L 4.00-5.50 MIL/uL Hemoglobin 11.7 L 12.0-16.0 g/dL Hematocrit 35.7 L 36-48 % Mean Corpuscular Volume 104.4 H 79-99 fL Mean Corpuscular Hemoglobin 34.2 H 27.0-33.0 pg Mean Corpuscular Hemoglobin Concent 32.8 32.0-36.0 g/dL Red Cell Distribution Width 14.1 11.0-15.5 % Platelet Count 129 L 130-400 K/uL Mean Platelet Volume 11.7 H 7.5-10.5 fL Immature Granulocyte % (Auto) 0.5 0-1 % Neutrophils (%) (Auto) 77.1 H 40.0-77.0 % Lymphocytes (%) (Auto) 11.4 L 21.0-51.0 % Monocytes (%) (Auto) 10.2 3.0-13.0 % Eosinophils (%) (Auto) 0.5 0.0-8.0 % Basophils (%) (Auto) 0.3 0.0-5.0 % Neutrophils # (Auto) 5.1 1.8-7.7 K/uL Lymphocytes # (Auto) 0.8 L 1.0-4.8 K/uL Monocytes # (Auto) 0.7 0.1-1.0 K/uL Eosinophils # (Auto) 0.03 0.00-0.70 K/uL Basophils # (Auto) 0.02 0.00-0.20 K/uL Absolute Immature Granulocyte (auto 0.03 0-1 K/uL Nucleated Red Blood Cells 0.0 0.0-0.19 % Chemistry Labs: Test 01/08/25 12:45 01/07/25 16:35 01/07/25 15:50 Range/Units Troponin I High Sensitivity 34 4-50 ng/L Sodium Level 142 136-145 mmol/L Potassium Level 4.4 3.5-5.1 mmol/L Chloride Level 109 101-111 mmol/L Carbon Dioxide Level 22 21-32 mmol/L Blood Urea Nitrogen 18 7-18 mg/dL Creatinine 1.2 H 0.5-1.0 mg/dL Glomerular Filtration Rate Calc 47 >90 mL/min Random Glucose 94 70-105 mg/dL Total Calcium 8.4 L 8.5-10.1 mg/dL Magnesium Level 1.90 1.80-2.40 mg/dL Total Creatine Kinase 33 21-232 U/L Triglycerides Level 48 30-200 mg/dL Cholesterol Level 112 <200 mg/dL LDL Cholesterol 60 0-99 mg/dL HDL Cholesterol 47 35-85 mg/dL B-Type Natriuretic Peptide 1350 H 0-100 pg/mL Coagulation Labs: Test 01/07/25 15:50 Range/Units Prothrombin Time 11.5 9.6-11.6 SEC Prothromb Time International Ratio 1.09 0.85-1.15 Activated Partial Thromboplast Time 22.8 L 26.3-35.5 SEC D-Dimer Quantitative (PE/DVT) 1233 *H 0-500 ng/mL DIAGNOSTICS / RADIOLOGY RESULTS: [ ] PLAN Consult Cardiology for evaluation and recommendation Stop azithromycin, start Rocephin Start IV Lasix 20 mg daily Order COVID flu and strep swabs Follow echocardiogram results Bedside swallow eval Sputum culture Order TSH level Resume home meds as reconciled Further management per hospital course DCP TBD NEURO: Minimize central acting medications as possible. Maintain fall precautions, adequate lighting during the day PULMONARY: Supplemental 02 as needed. Maintain aspiration precautions at all times DuoNebs every 6 hours CARDIOVASCULAR: Follow hemodynamics. Vital signs per facility protocol Aspirin 81 mg p.o. daily Nitroglycerin 0.4 mg sublingual p.r.n. for moderate chest pain Atorvastatin 40 mg p.o. at bedtime 2D echo cardiology read Serial troponin level GI & NUTRITION: Continue with nutritional support. Continue stool softeners and laxatives as needed. KIDNEYS & ELECTROLYTES: Strict monitoring of intake, output and overall fluid balance. Avoid nephrotoxic medications to the extent possible. Medications to be dosed according to renal function. Monitor electrolytes and replace as needed All nephrotoxic drugs ENDOCRINE: Maintain blood glucose between 100-180 at all times. Hypoglycemia protocol in place INFECTIOUS DISEASE: Trend temperature, WBC and procalcitonin level Follow cultures, deescalate antibiotics as soon as possible. Panculture if new onset fever ONCOLOGY/HEMATOLOGY/COAGULATION: Monitor for s/s of bleeding Monitor hemoglobin, coagulation studies as needed SKIN: Pressure ulcer prevention per facility protocol Specialty mattress ORTHO/REHAB: Continue PT/OT Prophylaxis: Continue GI and DVT prophylaxis Code Status: Full Resuscitation Disposition: TBD Other: Total patient care time exceeds 35 minutes excluding all procedures. Case discussed with . LITA BECKFORD January 08, 2025 13:37
[2025-01-08] MEDS: SODIUM CHLORIDE 3% FOR INHALATION 4 ML/AMP VIAL.NEB IH ONE ×3 (14:07→23:23)
--- NOTE | 2025-01-08 14:07 | HMCSR ---
APPROVED REPORT EXAM: Two-dimensional and M-mode echocardiogram with Doppler and color Doppler. INDICATION ICD: Unstable angina I20.0 2D Dimensions RVDd3.5 cmLVEF(%)53.1 (>50%)LVED Vol(simp.)96.0 mL IVSd0.9 (0.7-1.1cm)FS(%)27 %LVES Vol(simp.)58.0 mL LVDd4.8 (3.8-5.6cm)LA (2D)3.7 (1.6-4.0cm)LVEF(%, simp.)39 % PWd0.9 (0.7-1.1cm)Ao Root(2D)2.2 (2.0-3.7cm)LA ESV INDEX (BP)43.59 mL/m2 LVDs3.5 (2.5-4.0cm)LVOT diam1.9 (1.8-2.4cm) IVC diam1.0 cm Deformation Strain Apical 4-11.9 % Apical 2-14.7 % Apical 3-13.3 % Global Strain-13.3 % M-Mode Dimensions EPSS1.3 cm LA (MM)4.2 (1.6-4.0cm) Ao Root(MM)2.4 (2.0-3.7cm) Aortic Valve AoV Vmax2.2 m/Ryan Peak GR19.2 mmHgLVOT Vmax1.3 m/s AoV VTI0.4 mAo Mean GR10.6 mmHgLVOT VTI0.25 m NUPUR (VMAX)1.75 cm2AVA (VTI) 1.8 cm2 Mitral Valve MV E Vmax52.2 cm/sDECEL Fqqx106 ms MV A Ejlm767.1 cm/sP 1/2 T37 ms E/A ratio0.4MVA (PHT)6.0 cm2 TDI E/E' Medial5.5E/E' Lateral7.9 Medial E' Peak V9.42 cm/sLateral E' Peak V6.63 cm/s Tricuspid Valve TR Vmax2.6 m/sRVSP26.0 mmHg TR Peak GR26.7 mmHg Left Ventricle The left ventricle is normal size. Dyskinesia of the anteroseptal segment. Hypokinesis of the anterio r wall. Hypokinesis of the inferior, apical inferior segments. There is normal left ventricular wall thickness. LVEF is 35-40%. Grade II diastolic dysfunction. Right Ventricle The right ventricle is normal size. The right ventricular systolic function is normal. Atria The left atrium is moderately dilated. The right atrium is dilated. Aortic Valve The aortic valve is normal in structure. No aortic regurgitation is present. There is no aortic valvu lar stenosis. Mitral Valve The mitral valve is normal in structure. There is no mitral valve regurgitation noted. There is no mi tral valve stenosis. Tricuspid Valve The tricuspid valve is normal in structure. There is trace tricuspid valve regurgitation noted. Pulmonic Valve The pulmonary valve is normal in structure. There is no pulmonic valvular regurgitation. Great Vessels The aortic root is normal in size. The IVC is normal in size and collapses >50% with inspiration. Pericardium There is no pericardial effusion. Other Information Quality : GoodRhythm : NSR Conclusion The left ventricular systolic function is moderately reduced. LVEF is 35-40%. Dyskinesia of the anteroseptal segment. Hypokinesis of the anterior wall. Hypokinesis of the inferior , apical inferior segments. Grade II diastolic dysfunction. The left atrium is moderately dilated.
[2025-01-08] MEDS: cefTRIAXone 1G VIAL IVPB SCH (15:28)
[2025-01-08] MEDS: furoSEMIDE 20MG VIAL IV SCH (15:28)
[2025-01-08] MEDS: acetaMINOPHEN 325 MG TAB PO PRN (16:48)
[2025-01-08 17:42] LABS: RAPID GROUP A STREP negative (NEGATIVE)
--- NOTE | 2025-01-08 17:45 | NUR ---
BEDSIDE SWALLOW EVAL COMPLETED. +s/s of aspiration. Recommend minced and moist solids, moderately thick liquids, and pills crushed with pureed as tolerated until MBSS. COMPENSATORY STRATEGIES: 1. sit upright during oral intake 2. small bites/sips 3. slow oral intake 4. NO STRAWS BENEFITS CONSULTING ANALYST reviewed results and recommendations with patient and nurse Ivette. No family present at time of visit. BENEFITS CONSULTING ANALYST educated patient on risks and consequences of aspiration. Speech therapy will follow up with MBSS. All questions answered. Addendum: 01/08/[address] [facility] Amended: Links added.
[2025-01-08 17:46] LABS: SARS-CoV-2, RNA, NAAT NEGATIVE SARS CoV-2 (NEGATIVE)
[2025-01-08 17:52] LABS: INFLUENZA TYPE A Negative For Type A (NEGATIVE); INFLUENZA TYPE B Negative For Type B (NEGATIVE)
--- NOTE | 2025-01-08 18:10 | NUR ---
Discharge Planning: Pt. states she lives alone. Contact number is for her cousin Marion Quezada at . PCP is Dr. Tamar Montaño and preferred pharmacy is [facility] in [place]. Pt. states she is independent with all ADL's. No home health, provider services or DME. DCP is for home. No d/c needs at this time. Addendum: 01/08/25 at 1814 by EZIO FAJARDO RN CM Amended: Links added.
[2025-01-08] MEDS ORDERED: NON-FORMULARY MEDICATION 1 EACH (Pravastatin Sodium 20 MG) PO SCH (21:00)
[2025-01-08] MEDS: atorVAStatin 40 MG TABLET PO SCH (22:02)
[2025-01-08] MEDS: RANOLAZINE 500 MG TAB.SR.12H PO SCH (22:02)
[2025-01-09] VITALS (13 sets, daily range): BP systolic 121–160; BP diastolic 59–97; PULSE 53–99; RESP 16–24; TEMP 98.2–98.6; O2SAT 93–97
[2025-01-09] MEDS: furoSEMIDE 20MG VIAL IV SCH (05:01)
[2025-01-09] MEDS: levoTHYROxine 150 MCG TABLET PO SCH (06:53)
--- NOTE | 2025-01-09 07:55 | PN ---
PROBLEM LIST: * Hypertension. * Hyperlipoproteinemia. * Obesity. * History of chronic kidney disease, stage 3. * History of anemia. * History of gout. * History of hypothyroidism, currently on supplement. * History of congestive heart failure. * Calcified coronary arteries with no epicardial disease by cardiac catheterization in 2015 and 2018. * Acute hypoxemic respiratory failure. * LV dysfunction with EF in the 35-40% range with grade 2 diastolic dysfunction, with no significant valvular pathology on this admission. This patient has been hospitalized predominantly because of chest discomfort and shortness of breath, as well as fatigue. She has been hospitalized and managed by the primary care team and the Cardiac team. On assessing the patient this morning, she is complaining of a cough and shortness of breath. She states that she has been coughing this morning more so than yesterday. She denies any chest discomfort this morning except while she is coughing. This is different from her symptoms when she came in. The patient's vital signs are stable this morning. Her heart rate is 80, respiratory rate is 18-20. She is saturating at 97% on room air. The neck appears to show no jugular venous distention. The lungs are remarkable for decreased air entry bilaterally with scattered rhonchi and prolonged expiratory phase with diffuse intermittent wheezes. The cardiac exam reflects no murmurs, rubs, or gallops. The extremities are unremarkable for trace to 1+ edema bilaterally. The patient's laboratory studies on the revealed a sodium of 142, potassium 4.4, chloride is 109, CO2 is 22, BUN is 18, creatinine is 1.2 with a GFR of 47. Random glucose was 94. Calcium was low at 8.4. Magnesium was 1.9. The CK was normal twice and the BNP was elevated at 1350. The patient's lipid profile was in adequate range. The TSH is low, which would prompt adjustment of her thyroid medication. The patient's white count was 6.6 with an H and H of 11.7 and 35.7 respectively. The patient has a high MCV and a high MCHC. The platelet counts were slightly low at 129,000. The patient is currently maintained on iron supplement, lisinopril, atenolol, baby aspirin, allopurinol, levothyroxine, furosemide, ranolazine, atorvastatin, nitroglycerin, Rocephin, albuterol, famotidine, and additional p.r.n. medications. The patient's management is hampered by her pulmonary status at this time. She is clearly wheezing and having a persistent cough, which would make her not ideally suited for additional cardiac interventions at this point. The patient has had no chest pain in the hospital except for while coughing. Her resting electrocardiogram is clearly abnormal with findings consistent with mild marked QRS widening, with what appears to be left atrial abnormality. At this point, the patient is not ideally suited for assessment with a Lexiscan Cardiolite given her active wheezing. I also do not think that she will be able to have cardiac catheterization safely in the setting of ongoing coughing, which is persistent and because of her wheezing. I have recommended that we continue conservative management for now. I will ask the primary care team to address her Synthroid dose. The patient may benefit from additional evaluation with a Lexiscan Cardiolite or coronary CT angiography given her history of no significant coronary artery disease on two separate occasions in the past in the setting of LV dysfunction. We will continue the current supportive care and follow with you. TID: [id number] RECEIPT: [id number]
[2025-01-09] MEDS: alloPURInol 100 MG TABLET PO SCH (08:33)
[2025-01-09] MEDS: LISINOPRIL 20 MG TABLET PO SCH (08:33)
[2025-01-09] MEDS: FERROUS SULFATE 325 MG TABLET.DR PO SCH (08:33)
[2025-01-09] MEDS: ATENOLOL 50 MG TABLET PO SCH (08:34)
[2025-01-09] MEDS: (Dapagliflozin Propanediol (Farxiga) 10MG TAB) PO SCH (08:35)
[2025-01-09] MEDS: ASPIRIN 81MG CHEW TAB PO SCH (08:35)
[2025-01-09] MEDS ORDERED: furoSEMIDE 20MG VIAL IV SCH (09:00)
[2025-01-09] MEDS: levoTHYROxine 25 MCG TABLET PO ONE (10:24)
[2025-01-09] MEDS: levoTHYROxine 112 MCG TABLET PO ONE (10:24)
[2025-01-09 10:25] LABS: CREATININE 1.6 mg/dL (0.5-1.0)
[2025-01-09] MEDS ORDERED: PoTASSium chl 10% ELIXIR 20MEQ 20 MEQ/15 ML UDCUP PO PRN (11:00)
[2025-01-09] MEDS: PoTASSium chloRIDE 20MEQ ER 20 MEQ ERTAB PO PRN (11:18)
--- NOTE | 2025-01-09 12:18 | HMCIMG ---
CHEST 1VW HISTORY: Shortness of breath COMPARISON: None FINDINGS: A frontal projection of the chest was obtained. No acute pulmonary infiltrates is seen. The heart is borderline enlarged. Degenerative changes are seen. Prominent interstitial markings are seen. No evidence of aortic calcification is seen. IMPRESSION: 1. No acute pulmonary infiltrate is seen.
[2025-01-09] MEDS: Solu-medROL 40MG VIAL IVP SCH (13:06)
[2025-01-09] MEDS: metRONIDazole 500MG/100ML BAG IV SCH (13:06)
--- NOTE | 2025-01-09 13:30 | NUR ---
MBSS COMPLETED. Deep non-transient penetrations during the swallow with thin liquids via cup sip. Recommend minced and moist solids, mildly thick liquids and pills crushed with pureed as tolerated. Compensatory strategies: 1. sit upright during oral intake 2. small bites/sips 3. slow oral intake 4. extra dry swallows DIAGNOSTIC FINDINGS: Pt presented with mild oropharyngeal dysphagia characterized by decreased lingual strength; decreased tongue base retraction; decreased hyo-laryngeal elevation/excursion; decreased sensation; and delayed pharyngeal response trigger evidenced by bolus loss in floor of mouth with liquids; tongue pumping; occasional premature spillage to valleculae; residue on base of tongue, valleculae, pyriform sinuses and posterior pharyngeal wall cleared with extra dry swallows; resulting in deep non-transient penetrations during the swallow with thin liquids via cup sips; unable to determine if cough was elicited due to penetrations as patient was coughing throughout exam. No aspirations observed. Pt reports choking with solids and would prefer to be placed on minced and moist solids to compensate and crushed meds. HOT TAMALE WORKER reviewed results and recommendations with patient and nurse Seun. HOT TAMALE WORKER educated patient on risks and consequences of aspirations. Speech therapy warranted at this time. All questions answered. Addendum: 01/09/[address] [facility] Amended: Links added. Addendum: 01/09/[address] [facility] ADDITIONAL INFORMATION: RECOMMENDATIONS: Dysphagia Therapy 1-3X week to increase oral motor strength and pharyngeal swallow: LTG#1: Pt will tolerate least restrictive diet to meet nutrition/hydration with no s/s of aspiration. LTG#2: Skilled education Pt/family/staff STG#1: Pt will participate in laryngeal elevation/excursion exercises with 90% accuracy and min A. STG#2: Pt will participate in tongue base retraction exercises with 90% acc/with Min A. STG#3: Pt will participate in oral motor exercises with 90% acc/with Min A. STG#4: Pt will tolerate modified diet of mildly thick liquids with no overt s/s of aspiration. STG#5: Pt will participate in advanced trials of soft & bite sized solids with no overt s/s of aspiration. STG#6: Skilled education Pt/family/staff.
--- NOTE | 2025-01-09 16:43 | NUR ---
Discharge Update: Continued cough and wheezing. Remains on 02@ 2L, iv Lasix, iv solumedrol and iv abx. Not stable for discharge.
--- NOTE | 2025-01-09 16:55 | HMCIMG ---
MODIFIED BARIUM SWALLOW W CINE REASON: Aspiration. COMPARISON: None TECHNIQUE: Modified barium swallow study was performed with referring speech therapist. FINDINGS: Please see procedure report by the referring speech therapist. IMPRESSION: Modified barium swallow study.
[2025-01-09] MEDS: PoTASSium chloRIDE 20MEQ/100ML 100 ML IV PRN (17:06)
--- NOTE | 2025-01-09 21:00 | NUR ---
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 NEW ORDER GIVEN FOR HYDRALAZINE 10MG IV Q4H FOR SYSTOLIC GREATER THAN 180. WILL CONTINUE PLAN OF CARE.
[2025-01-09] MEDS: guaiFENesin-DM 200/20MG 10ML PO PRN (21:23)
[2025-01-10] VITALS (18 sets, daily range): BP systolic 140–156; BP diastolic 70–98; PULSE 71–91; RESP 18–24; TEMP 97.4–98.2; O2SAT 93–98
[2025-01-10] MEDS ORDERED: hydrALAZine 20MG/ML VIAL IV PRN (01:00)
[2025-01-10 06:10] LABS: CREATININE 1.2 mg/dL (0.5-1.0); POTASSIUM 4.5 mmol/L (3.5-5.1)
--- NOTE | 2025-01-10 06:56 | PN ---
[facility] PROGRESS NOTE Date Patient Seen: January Time of Visit: 13:42 Supervising Physician: [Dr. Baron] Primary Care Physician: DR. CHUYITA GUERRERO Outpatient Specialists: [ ] Inpatient Consults: [[facility]] PROBLEM LIST: UNSTABLE ANGINA, negative troponin ACUTE HYPOXIC RESPIRATORY FAILURE, resolved BILATERAL LOWER LOBE PNEUMONIA aspiration, treated Acute on chronic renal failure, not POA Acute on chronic diastolic congestive heart failure with mrEF per last echo Hypothyroidism Gout CHRONIC KIDNEY DISEASE STAGE 3 ESSENTIAL HYPERTENSION MORBID OBESITY INTERVAL HISTORY: [Patient is evaluated at bedside. She presented to the ED at the direction of her lead c developer after reporting chest pain that was associated with EKG changes at the office. Her labs revealed a relatively normal CBC and BNP. ABG was within normal limits. Serial troponins have been negative, EKG was read without acute findings. BNP was elevated at 1350. And D-dimer was elevated as well, CTA of the chest was negative for PE but revealed bilateral lower lobe infiltrates, R> L. she denies any current chest pain but states she has been experiencing chest pain that was worsened with activity for the last week on and off. Chest pain episodes with last typically about 5-10 minutes before resolving with rest. She is pending an echocardiogram. Cardiology was consulted, pending recommendation.] 01/09 Patient is evaluated at bedside. She was evaluated by cardiology with recommendations noted. She does have some bilateral wheezing on auscultation. CXR with findings concerning for aspiration. Her speech evaluation confirms s/s of aspiration. Her TSH is low, will adjust her levothyroxine dose accordingly. Her creatinine is elevated, with ROBBY. REVIEW OF SYSTEMS: 12 point ROS reviewed with patient. Pertinent positives mentioned above. Otherwise negative. PHYSICAL EXAM: GENERAL: alert, weak, awake oriented x 3 HEENT: EOMI, Sclera non icteric, moist mucosa NECK: Supple, no JVD, trachea midline LUNGS: Diminished bilaterally, oxygen 2 L nasal cannula HEART: Regular rate and rhythm. Normal S1 and S2, without murmurs ABD: Abdomen soft, nontender. Bowel sounds present EXT: No clubbing cyanosis or edema NEURO: Alert and oriented to person, follows commands Vital Signs (last 8hr) Date Time Temp Pulse Resp B/P (MAP) Pulse Ox O2 Delivery O2 Flow Rate FiO2 01/10/25 03:40 97.5 73 20 151/79 96 Room Air 01/10/25 00:20 95 Room Air* 0 21 01/09/25 23:50 98.6 96 24 142/81 94 Room Air 01/09/25 23:05 92 18 LABS: Chemistry Labs: Test 01/10/25 05:31 01/09/25 10:08 01/08/25 21:08 01/08/25 12:45 Range/Units Sodium Level 140 136-145 mmol/L Potassium Level 4.5 3.5-5.1 mmol/L Chloride Level 110 101-111 mmol/L Carbon Dioxide Level 24 21-32 mmol/L Blood Urea Nitrogen 27 H 7-18 mg/dL Creatinine 1.2 H 0.5-1.0 mg/dL Glomerular Filtration Rate Calc 47 >90 mL/min Random Glucose 120 H 70-105 mg/dL Total Calcium 8.2 L 8.5-10.1 mg/dL Procalcitonin 0.25 0.05-0.5 ng/mL Troponin I High Sensitivity 38 4-50 ng/L Thyroid Stimulating Hormone (TSH) 0.08 L 0.36-3.74 uIU/mL DIAGNOSTICS / RADIOLOGY RESULTS: [ ] PLAN Consult Cardiology for evaluation and recommendation Continue Rocephin, start flagyl Stop IV lasix, resume po 20mg daily tomorrow 01/10 Order COVID flu and strep swabs Follow echocardiogram results Bedside swallow eval Sputum culture pending Resume home meds as reconciled Further management per hospital course DCP TBD NEURO: Minimize central acting medications as possible. Maintain fall precautions, adequate lighting during the day PULMONARY: Supplemental 02 as needed. Maintain aspiration precautions at all times DuoNebs every 6 hours CARDIOVASCULAR: Follow hemodynamics. Vital signs per facility protocol Aspirin 81 mg p.o. daily Nitroglycerin 0.4 mg sublingual p.r.n. for moderate chest pain Atorvastatin 40 mg p.o. at bedtime 2D echo cardiology read Serial troponin level GI & NUTRITION: Continue with nutritional support. Continue stool softeners and laxatives as needed. KIDNEYS & ELECTROLYTES: Strict monitoring of intake, output and overall fluid balance. Avoid nephrotoxic medications to the extent possible. Medications to be dosed according to renal function. Monitor electrolytes and replace as needed All nephrotoxic drugs ENDOCRINE: Maintain blood glucose between 100-180 at all times. Hypoglycemia protocol in place INFECTIOUS DISEASE: Trend temperature, WBC and procalcitonin level Follow cultures, deescalate antibiotics as soon as possible. Panculture if new onset fever ONCOLOGY/HEMATOLOGY/COAGULATION: Monitor for s/s of bleeding Monitor hemoglobin, coagulation studies as needed SKIN: Pressure ulcer prevention per facility protocol Specialty mattress ORTHO/REHAB: Continue PT/OT Prophylaxis: Continue GI and DVT prophylaxis Code Status: Full Resuscitation Disposition: TBD Other: Total patient care time exceeds 35 minutes excluding all procedures. Case discussed with . LITA BECKFORD January 10, 2025 06:56
[2025-01-10] MEDS: furoSEMIDE 20 MG TABLET PO SCH (09:04)
--- NOTE | 2025-01-10 15:05 | NUR ---
Started new PIV to the right hand. this is a 22 g catheter. The left AC site is discontinued.
--- NOTE | 2025-01-10 15:12 | PN ---
This is a 74-year-old female with a a history of hypertension, hyperlipidemia, chronic kidney disease, nonischemic cardiomyopathy and ectatic, calcified coronary arteries by left heart catheterization 05/08/2018. She was admitted 01/07/2025 secondary to persistent cough and orthopnea x1 week. She was noted to have widening of the QRS with a new left bundle-branch block on EKG. She underwent echocardiogram 01/08/2025 which shows an ejection fraction of 35-40% with wall motion abnormalities, grade 2 diastolic dysfunction and trace tricuspid valve regurgitation. This is in contrast to an ejection fraction of 45-50% in October 2022 and 40-45% in June 2021. She underwent CT scan of the chest 01/07/2025 which was negative for pulmonary embolism with bilateral pulmonary infiltrates, right greater than left. She is currently in sinus rhythm with heart rates in the 80s. Her most recent blood pressure is 140/70. Creatinine 1.2 down from 1.6, potassium 4.5, BNP 1350 (01/07/2025), troponin negative x6. CBC 01/07/2025 as follows: White blood count 6.6, hemoglobin 11.7, hematocrit 35.7, platelets 129. She reports a cough and orthopnea in the developed one week ago. She was sitting upright in a chair today and states that the cough improved, however she is now back in her bed and states that the cough is constant. She states that the albuterol nebulizer treatments are helpful. On exam, she is in no acute distress, regular rate and rhythm, bilateral rales and wheezing. Assessment: 1. Acute systolic heart failure exacerbation. 2. Heart failure with reduced ejection fraction. 3. Left bundle-branch block. 4. Chronic kidney disease. 5. Hypertension. 6. Hyperlipidemia. Plan: 1. She was admitted for acute systolic heart failure exacerbation and respiratory failure presenting with persistent cough and orthopnea. She was found to have an ejection fraction of 35-40% and a new left bundle-branch block. She has bilateral wheezing and rales on exam. 2. We will hold p.o. furosemide and transition to IV furosemide 20 mg twice daily for more aggressive diuresis. 3. Continue aspirin 81 mg once daily, atorvastatin 40 mg once daily and l isinopril 20 mg once daily. Atenolol will be discontinued due to decompensated heart failure. Plan to start metoprolol succinate when she is compensated. 4. We will add hydralazine for blood pressure control due to atenolol being discontinued. 5. We will defer ischemic workup until her respiratory status has improved. 6. Order CBC, BNP and BNP in the a.m.. Vitals/Labs Vital Signs Date Time Temp Pulse Resp B/P (MAP) Pulse Ox O2 Delivery O2 Flow Rate FiO2 01/10/25 12:00 97.9 91 18 140/70 94 Room Air 01/10/25 11:29 21 01/10/25 10:23 0 Laboratory Tests 01/10/25 05:31 CHITO RODRIGUEZ January 10, 2025 15:12
[2025-01-10] MEDS: furoSEMIDE 20MG VIAL IV SCH (15:46)
--- NOTE | 2025-01-10 17:45 | NUR ---
Medicated patient for cough The patient was offend PRN Ambrocioitussin for her cough. This has given her some relief. PT has been ambulating in her room and voiced that she had diuresed wafter the IV lasix.
--- NOTE | 2025-01-10 18:56 | PN ---
[facility] PROGRESS NOTE Date Patient Seen: January 10, 2025 Time of Visit: 18:49 Supervising Physician: [Dr. Baron] Primary Care Physician: DR. CHUYITA GUERRERO Outpatient Specialists: [ ] Inpatient Consults: [[facility]] PROBLEM LIST: UNSTABLE ANGINA, negative troponin ACUTE HYPOXIC RESPIRATORY FAILURE, resolved BILATERAL LOWER LOBE PNEUMONIA aspiration, treated Acute on chronic renal failure, not POA Acute on chronic diastolic congestive heart failure with mrEF per last echo Hypothyroidism Gout CHRONIC KIDNEY DISEASE STAGE 3 ESSENTIAL HYPERTENSION MORBID OBESITY INTERVAL HISTORY: [Patient is evaluated at bedside. 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 Her labs revealed a relatively normal CBC and BNP. ABG was within normal limits. Serial troponins have been negative, EKG was read without acute findings. BNP was elevated at 1350. And D-dimer was elevated as well, CTA of the chest was negative for PE but revealed bilateral lower lobe infiltrates, R> L. she denies any current chest pain but states she has been experiencing chest pain that was worsened with activity for the last week on and off. Chest pain episodes with last typically about 5-10 minutes before resolving with rest. She is pending an echocardiogram. Cardiology was consulted, pending recommendation.] 01/09 Patient is evaluated at bedside. She was evaluated by cardiology with recommendations noted. She does have some bilateral wheezing on auscultation. CXR with findings concerning for aspiration. Her speech evaluation confirms s/s of aspiration. Her TSH is low, will adjust her levothyroxine dose accordingly. Her creatinine is elevated, with ROBBY. 01/10 patient is evaluated at bedside. Continues on modified diet per speech r ecommendation. Still has some cough with phlegm production and mild wheezing bilaterally. COVID flu and strep swabs are negative. She is pending further workup per Cardiology once her pneumonia has resolved. We will continue IV antibiotics and await further recommendation from Cardiology. Potassium level is normalized and creatinine is improved to 1.2. CXR from yesterday shows interval improvement. REVIEW OF SYSTEMS: 12 point ROS reviewed with patient. Pertinent positives mentioned above. Otherwise negative. PHYSICAL EXAM: GENERAL: alert, weak, awake oriented x 3 HEENT: EOMI, Sclera non icteric, moist mucosa NECK: Supple, no JVD, trachea midline LUNGS: Diminished bilaterally, oxygen 2 L nasal cannula HEART: Regular rate and rhythm. Normal S1 and S2, without murmurs ABD: Abdomen soft, nontender. Bowel sounds present EXT: No clubbing cyanosis or edema NEURO: Alert and oriented to person, follows commands Vital Signs (last 8hr) Date Time Temp Pulse Resp B/P (MAP) Pulse Ox O2 Delivery O2 Flow Rate FiO2 01/10/25 18:18 71 18 N/A Room Air 21 01/10/25 18:16 71 18 01/10/25 16:00 98.2 80 18 152/74 95 Room Air 01/10/25 12:00 97.9 91 18 140/70 94 Room Air 01/10/25 11:29 84 19 N/A Room Air 21 01/10/25 11:26 76 19 LABS: Chemistry Labs: Test 01/10/25 05:31 01/09/25 10:08 01/08/25 21:08 Range/Units Sodium Level 140 136-145 mmol/L Potassium Level 4.5 3.5-5.1 mmol/L Chloride Level 110 101-111 mmol/L Carbon Dioxide Level 24 21-32 mmol/L Blood Urea Nitrogen 27 H 7-18 mg/dL Creatinine 1.2 H 0.5-1.0 mg/dL Glomerular Filtration Rate Calc 47 >90 mL/min Random Glucose 120 H 70-105 mg/dL Total Calcium 8.2 L 8.5-10.1 mg/dL Procalcitonin 0.25 0.05-0.5 ng/mL Troponin I High Sensitivity 38 4-50 ng/L DIAGNOSTICS / RADIOLOGY RESULTS: [ ] PLAN Appreciate cardiology recommendation Continue Rocephin and flagyl Resume po Lasix 20mg daily 01/10 Order COVID flu and strep swabs Follow echocardiogram results Sputum culture pending Resume home meds as reconciled Further management per hospital course DCP TBD NEURO: Minimize central acting medications as possible. Maintain fall precautions, adequate lighting during the day PULMONARY: Supplemental 02 as needed. Maintain aspiration precautions at all times DuoNebs every 6 hours CARDIOVASCULAR: Follow hemodynamics. Vital signs per facility protocol Aspirin 81 mg p.o. daily Nitroglycerin 0.4 mg sublingual p.r.n. for moderate chest pain Atorvastatin 40 mg p.o. at bedtime 2D echo cardiology read Serial troponin level GI & NUTRITION: Continue with nutritional support. Continue stool softeners and laxatives as needed. KIDNEYS & ELECTROLYTES: Strict monitoring of intake, output and overall fluid balance. Avoid nephrotoxic medications to the extent possible. Medications to be dosed according to renal function. Monitor electrolytes and replace as needed All nephrotoxic drugs ENDOCRINE: Maintain blood glucose between 100-180 at all times. Hypoglycemia protocol in place INFECTIOUS DISEASE: Trend temperature, WBC and procalcitonin level Follow cultures, deescalate antibiotics as soon as possible. Panculture if new onset fever ONCOLOGY/HEMATOLOGY/COAGULATION: Monitor for s/s of bleeding Monitor hemoglobin, coagulation studies as needed SKIN: Pressure ulcer prevention per facility protocol Specialty mattress ORTHO/REHAB: Continue PT/OT Prophylaxis: Continue GI and DVT prophylaxis Code Status: Full Resuscitation Disposition: TBD Other: Total patient care time exceeds 35 minutes excluding all procedures. Case discussed with . LITA BECKFORD January 10, 2025 18:56
[2025-01-10] MEDS: hydrALAZine HCL 10 MG TABLET PO SCH (20:34)
--- NOTE | 2025-01-10 20:35 | NUR ---
MEDS SHIFT ASSESSMENT DONE, PLEASE REFER TO CHART. DUE MEDS ADMINISTERED, TOLERATED WELL. KEPT RESTED AND COMFORTABLE IN BED. CALL LIGHT WITHIN REACH. RE-ITERATED FALL PRECAUTIONS, VERBALIZES UNDERSTANDING.
[2025-01-11] VITALS (10 sets, daily range): BP systolic 140–153; BP diastolic 78–88; PULSE 72–91; RESP 12–20; TEMP 97.7–98.1; O2SAT 93–96
[2025-01-11] MEDS: furoSEMIDE 20MG VIAL IV SCH (04:48)
--- NOTE | 2025-01-11 05:20 | NUR ---
ASSIST PT ASSISTED TO THE RESTROOM WITH MINIMAL ASSIST. DENIES ANY CONCERNS AT THIS TIME. KEPT COMFORTABLE IN BED WITH HOB ELEVATED. CONTINUED INFUSION OF IV FLAGYL. FOR MORE CARE.
[2025-01-11 06:04] LABS: BASOPHILS # (AUTO) 0.01 K/uL (0.00-0.20); BASOPHILS % (AUTO) 0.1 % (0.0-5.0); HEMATOCRIT 41.5 % (36-48); IMMATURE GRANULOCYTE ABSOLUTE 0.03 K/uL (0-1); LYMPHOCYTES # (AUTO) 0.8 K/uL (1.0-4.8); LYMPHOCYTES % (AUTO) 9.4 % (21.0-51.0); MEAN CORPUSCULAR HEMOGLOBIN 33.4 pg (27.0-33.0); MEAN CORPUSCULAR VOLUME 104.3 fL (79-99); MONOCYTES # (AUTO) 0.7 K/uL (0.1-1.0); MONOCYTES % (AUTO) 7.9 % (3.0-13.0); NEUTROPHILS # (AUTO) 7.4 K/uL (1.8-7.7); NEUTROPHILS % (AUTO) 82.3 % (40.0-77.0); PLATELET COUNT (AUTO) 171 K/uL (130-400); RED BLOOD CELL COUNT(AUTO) 3.98 MIL/uL (4.00-5.50); RED CELL DISTRIBUTION WIDTH 13.7 % (11.0-15.5)
[2025-01-11 06:18] LABS: CREATININE 1.3 mg/dL (0.5-1.0); POTASSIUM 4.1 mmol/L (3.5-5.1)
[2025-01-11 06:31] LABS: B-TYPE NATRIURETIC PEPTIDE 1240 pg/mL (0-100)
[2025-01-11] MEDS: predniSONE 20 MG TABLET PO SCH (09:16)
--- NOTE | 2025-01-11 13:21 | PN ---
This is a 74-year-old female with a a history of hypertension, hyperlipidemia, chronic kidney disease, nonischemic cardiomyopathy and ectatic, calcified coronary arteries by left heart catheterization 05/08/2018. She was admitted 01/07/2025 secondary to persistent cough and orthopnea x1 week. She was found to have a new left bundle-branch block on EKG. She underwent echocardiogram 01/08/2025 which shows an ejection fraction of 35-40% with wall motion abnormalities, grade 2 diastolic dysfunction and trace tricuspid valve regurgitation. This is in contrast to an ejection fraction of 45-50% in October 2022 and 40-45% in June 2021. She is currently in sinus rhythm with heart rates in the 70s-80s. Her most recent blood pressure is 144/86. White blood count 9.0, hemoglobin 13.3, hematocrit 41.5, platelets 171, creatinine 1.3, potassium 4.1, BNP 1240. She states that the cough is persistent but slightly improved from yesterday. On exam, she is in no acute distress, regular rate and rhythm, bilateral rales; wheezing has improved. Assessment: 1. Acute systolic heart failure exacerbation. 2. Heart failure with reduced ejection fraction. 3. Left bundle-branch block. 4. Chronic kidney disease. 5. Hypertension. 6. Hyperlipidemia. Plan: 1. She was admitted for acute systolic heart failure exacerbation and respiratory failure presenting with persistent cough and orthopnea. She was found to have an ejection fraction of 35-40% and a new left bundle-branch block. 2. Continue IV furosemide 20 mg twice daily. We will add an additional dose of IV furosemide 20 mg x 1 this afternoon. 3. Consider adding spironolactone tomorrow based on renal function. 4. Continue aspirin 81 mg once daily, atorvastatin 40 mg once daily and l isinopril 20 mg once daily. Start metoprolol succinate once heart failure is compensated. 5. Continue hydralazine 10 mg tid for blood pressure control. 6. Order BMP, CXR in the a.m.. 7. We will defer ischemic workup until her respiratory status has improved. Vitals/Labs Vital Signs Date Time Temp Pulse Resp B/P (MAP) Pulse Ox O2 Delivery O2 Flow Rate FiO2 01/11/25 12:00 98.1 85 16 144/86 94 Room Air 01/11/25 11:33 21 01/10/25 20:35 0 Laboratory Tests 01/11/25 05:52 CHITO RODRIGUEZ January 11, 2025 13:21
[2025-01-11] MEDS: furoSEMIDE 20MG VIAL IV ONE (13:30)
--- NOTE | 2025-01-11 17:00 | NUR ---
SPEECH THERAPY COMPLETED S: Pt IN BED WITH HEAD OF BED ELEVATED. Pt ON RA AND IN NO RESPIRATORY DISTRESS. Pt ALERT AND AGREEABLE TO SPEECH THERAPY. SEROLOGIST REPOSITIONED PATIENT IN BED TO 90 DEGREES BEFORE STARTING THERAPY SESSION. Pt CURRENTLY TOLERATED PO DIET WITH MINCED MOIST SOLIDS AND MODERATELY THICKENED LIQUIDS. PATIENT TOLERATING FEEDINGS WITH NO OVERT S/S OF ASPIRATION. O: Dysphagia Therapy 1-3X week to increase oral motor strength and pharyngeal swallow: LTG#1: Pt will tolerate least restrictive diet to meet nutrition/hydration with no s/s of aspiration. LTG#2: Skilled education Pt/family/staff STG#1: Pt will participate in laryngeal elevation/excursion exercises with 90% accuracy and min A. - 90% STG#2: Pt will participate in tongue base retraction exercises with 90% acc/with Min A. 80% STG#3: Pt will participate in oral motor exercises with 90% acc/with Min A. 100% STG#4: Pt will tolerate modified diet of mildly thick liquids with no overt s/s of aspiration. NA STG#5: Pt will participate in advanced trials of soft & bite sized solids with no overt s/s of aspiration. NA DUE TO NAUSEA STG#6: Skilled education Pt/family/staff. A: Pt COOPERATIVE WITH ALL THERAPEUTIC TRIALS. PATIENT NOTED WITH FATIGUE DURING COMPLETION OF EXERCISES AND REQUIRED BREATHIG/RECOVERY BREAKS. P: RECOMMEND CONTINUED POC AND CURRENT DIET. SEROLOGIST WILL CONTINUE TO FOLLOW PATIENT TO ADDRESS DYSPHAGIA GOALS. SEROLOGIST COORDINATED WITH NURSE ABOUT TREATMENT RESULTS. Addendum: 01/11/25 at 1820 by BRIAN BRUNER Amended: Links added.
[2025-01-11] MEDS: Solu-medROL 40MG VIAL IVP ONE (17:15)
--- NOTE | 2025-01-11 18:15 | NUR ---
Lung sounds sound clear after a dose of 80 mg IV Solumedrol. PT has no concerns or complaints. The wheezing has subsided.
--- NOTE | 2025-01-11 18:48 | PN ---
[facility] PROGRESS NOTE Date Patient Seen: January 11, 2025 Time of Visit: 19:42 Supervising Physician: [Dr. Baron] Primary Care Physician: DR. CHUYITA GUERRERO Outpatient Specialists: [ ] Inpatient Consults: [[facility]] PROBLEM LIST: UNSTABLE ANGINA, negative troponin ACUTE HYPOXIC RESPIRATORY FAILURE, resolved BILATERAL LOWER LOBE PNEUMONIA aspiration, treated Acute on chronic renal failure, not POA Acute on chronic diastolic congestive heart failure with mrEF per last echo Hypothyroidism Gout CHRONIC KIDNEY DISEASE STAGE 3 ESSENTIAL HYPERTENSION MORBID OBESITY INTERVAL HISTORY: [Patient is evaluated at bedside. She presented to the ED at the direction of her jig worker after reporting chest pain that was associated with EKG changes at the office. Her labs revealed a relatively normal CBC and BNP. ABG was within normal limits. Serial troponins have been negative, EKG was read without acute findings. BNP was elevated at 1350. And D-dimer was elevated as well, CTA of the chest was negative for PE but revealed bilateral lower lobe infiltrates, R> L. she denies any current chest pain but states she has been experiencing chest pain that was worsened with activity for the last week on and off. Chest pain episodes with last typically about 5-10 minutes before resolving with rest. She is pending an echocardiogram. Cardiology was consulted, pending recommendation.] 01/09 Patient is evaluated at bedside. She was evaluated by cardiology with recommendations noted. She does have some bilateral wheezing on auscultation. CXR with findings concerning for aspiration. Her speech evaluation confirms s/s of aspiration. Her TSH is low, will adjust her levothyroxine dose accordingly. Her creatinine is elevated, with ROBBY. 01/10 patient is evaluated at bedside. Continues on modified diet per speech r ecommendation. Still has some cough with phlegm production and mild wheezing bilaterally. COVID flu and strep swabs are negative. She is pending further workup per Cardiology once her pneumonia has resolved. We will continue IV antibiotics and await further recommendation from Cardiology. Potassium level is normalized and creatinine is improved to 1.2. CXR from yesterday shows interval improvement. 01/11 Patient was evaluated at bedside. Her CBC is unremarkable. BNP shows a creatinine 1.3 today. COVID flu and strep were negative. Patient's CXR from yesterday shows no acute pulmonary infiltrate but mild pulmonary congestion. She has 1+ edema to bilateral lower extremities. Continues on modified diet per dietary recommendation. She continues with persistent bilateral wheezing on auscultation. Echocardiogram shows an EF of 35-40% with dyskinesia anteroseptal segments and hypokinesis of anterior wall, inferior and apical inferior segments per report. Pending Cardiology recommendation. REVIEW OF SYSTEMS: 12 point ROS reviewed with patient. Pertinent positives mentioned above. Otherwise negative. PHYSICAL EXAM: GENERAL: alert, weak, awake oriented x 3 HEENT: EOMI, Sclera non icteric, moist mucosa NECK: Supple, no JVD, trachea midline LUNGS: Diminished bilaterally, oxygen 2 L nasal cannula HEART: Regular rate and rhythm. Normal S1 and S2, without murmurs ABD: Abdomen soft, nontender. Bowel sounds present EXT: No clubbing cyanosis or edema NEURO: Alert and oriented to person, follows commands Vital Signs (last 8hr) Date Time Temp Pulse Resp B/P (MAP) Pulse Ox O2 Delivery O2 Flow Rate FiO2 01/11/25 16:00 98.1 84 18 153/88 95 Room Air 01/11/25 12:00 98.1 85 16 144/86 94 Room Air LABS: Hematology Labs: Test 01/11/25 05:52 Range/Units White Blood Count 9.0 4.8-10.8 K/uL Red Blood Count 3.98 L 4.00-5.50 MIL/uL Hemoglobin 13.3 12.0-16.0 g/dL Hematocrit 41.5 36-48 % Mean Corpuscular Volume 104.3 H 79-99 fL Mean Corpuscular Hemoglobin 33.4 H 27.0-33.0 pg Mean Corpuscular Hemoglobin Concent 32.0 32.0-36.0 g/dL Red Cell Distribution Width 13.7 11.0-15.5 % Platelet Count 171 130-400 K/uL Mean Platelet Volume 11.2 H 7.5-10.5 fL Immature Granulocyte % (Auto) 0.3 0-1 % Neutrophils (%) (Auto) 82.3 H 40.0-77.0 % Lymphocytes (%) (Auto) 9.4 L 21.0-51.0 % Monocytes (%) (Auto) 7.9 3.0-13.0 % Eosinophils (%) (Auto) 0.0 0.0-8.0 % Basophils (%) (Auto) 0.1 0.0-5.0 % Neutrophils # (Auto) 7.4 1.8-7.7 K/uL Lymphocytes # (Auto) 0.8 L 1.0-4.8 K/uL Monocytes # (Auto) 0.7 0.1-1.0 K/uL Eosinophils # (Auto) 0.00 0.00-0.70 K/uL Basophils # (Auto) 0.01 0.00-0.20 K/uL Absolute Immature Granulocyte (auto 0.03 0-1 K/uL Nucleated Red Blood Cells 0.0 0.0-0.19 % White Cell Morphology Comment See comments Chemistry Labs: Test 01/11/25 05:52 Range/Units Sodium Level 142 136-145 mmol/L Potassium Level 4.1 3.5-5.1 mmol/L Chloride Level 107 101-111 mmol/L Carbon Dioxide Level 29 21-32 mmol/L Blood Urea Nitrogen 30 H 7-18 mg/dL Creatinine 1.3 H 0.5-1.0 mg/dL Glomerular Filtration Rate Calc 43 >90 mL/min Random Glucose 111 H 70-105 mg/dL Total Calcium 8.7 8.5-10.1 mg/dL B-Type Natriuretic Peptide 1240 H 0-100 pg/mL DIAGNOSTICS / RADIOLOGY RESULTS: [ ] PLAN Appreciate cardiology recommendation One time dose of IV Solu-Medrol 80 mg Continue oral prednisone 20 mg daily Continue Rocephin and flagyl Stop IV lasix as patient did not tolerate well with previous IV dose Resume po Lasix 20mg daily COVID flu and strep swabs negative Echocardiogram results abnormal Sputum culture pending Resume home meds as reconciled Further management per hospital course DCP TBD NEURO: Minimize central acting medications as possible. Maintain fall precautions, adequate lighting during the day PULMONARY: Supplemental 02 as needed. Maintain aspiration precautions at all times DuoNebs every 6 hours CARDIOVASCULAR: Follow hemodynamics. Vital signs per facility protocol Aspirin 81 mg p.o. daily Nitroglycerin 0.4 mg sublingual p.r.n. for moderate chest pain Atorvastatin 40 mg p.o. at bedtime 2D echo cardiology read Serial troponin level GI & NUTRITION: Continue with nutritional support. Continue stool softeners and laxatives as needed. KIDNEYS & ELECTROLYTES: Strict monitoring of intake, output and overall fluid balance. Avoid nephrotoxic medications to the extent possible. Medications to be dosed according to renal function. Monitor electrolytes and replace as needed All nephrotoxic drugs ENDOCRINE: Maintain blood glucose between 100-180 at all times. Hypoglycemia protocol in place INFECTIOUS DISEASE: Trend temperature, WBC and procalcitonin level Follow cultures, deescalate antibiotics as soon as possible. Panculture if new onset fever ONCOLOGY/HEMATOLOGY/COAGULATION: Monitor for s/s of bleeding Monitor hemoglobin, coagulation studies as needed SKIN: Pressure ulcer prevention per facility protocol Specialty mattress ORTHO/REHAB: Continue PT/OT Prophylaxis: Continue GI and DVT prophylaxis Code Status: Full Resuscitation Disposition: TBD Other: Total patient care time exceeds 35 minutes excluding all procedures. Case discussed with . LITA BECKFORD January 11, 2025 18:48
[2025-01-12] VITALS (14 sets, daily range): BP systolic 127–156; BP diastolic 73–99; PULSE 74–105; RESP 16–21; TEMP 97.6–98.2; O2SAT 94–97
[2025-01-12 05:28] LABS: CREATININE 1.3 mg/dL (0.5-1.0); POTASSIUM 4.4 mmol/L (3.5-5.1)
[2025-01-12] MEDS: furoSEMIDE 20 MG TABLET PO SCH (08:05)
--- NOTE | 2025-01-12 09:40 | HMCIMG ---
Exam Type: CHEST 1VW Clinical Information: CHF Comparison: None Findings: The lungs are clear of infiltrates. The heart is enlarged. Bony and soft tissue structures of the chest wall are unremarkable. IMPRESSION: Cardiomegaly. Clear lungs.
--- NOTE | 2025-01-12 11:00 | NUR ---
JASPAL BECKFORD NP ROUNDED AT BEDSIDE. VORB D/C PREDNISONE, START ON SOLU-MEDROL 40MG IV X1 DOSE NOW THEN BID. EXPLAINED TREATMENT PLAN TO PATIENT. VOICED UNDERSTANDING. ORDERS PLACED AND CARRIED OUT. WILL CONTINUE TO MONITOR.
[2025-01-12] MEDS: Solu-medROL 40MG VIAL IVP ONE (11:20)
--- NOTE | 2025-01-12 12:15 | NUR ---
ROUNDS DR. GALLEGOS ROUNDED AT BEDSIDE. SPOKE WITH PATIENT AND NOTIFIED OF TREATMENT PLAN. PATIENT TO FINISH WITH PULMONARY TREATMENTS AND WILL FOLLOW UP OUTPATIENT FOR FURTHER INTERVENTIONS. PATIENT VOICED UNDERSTANDING. NO NEW ORDERS GIVEN AT THIS TIME.
--- NOTE | 2025-01-12 14:33 | NUR ---
Discharge Planning: Pt. with continued persistent bilateral wheezing. Started on iv solumedrol. continues on iv abx. Pending cardiology recommendations. Pt. is on room air.
[2025-01-12] MEDS: NITROGLYCERIN 0.4 MG SL TAB SL SCH (16:22)
--- NOTE | 2025-01-12 16:23 | NUR ---
CHEST PAIN PATIENT C/O CHEST PAIN. STATES RADIATING TO RIGHT SIDE. PRN NITRO AVAILABLE AND ADMINISTERED. WILL CONTINUE TO MONITOR.
--- NOTE | 2025-01-12 18:52 | PN ---
[facility] PROGRESS NOTE Date Patient Seen: January 12, 2025 Time of Visit: 19:52 Supervising Physician: [Dr. Baron] Primary Care Physician: DR. CHUYITA GUERRERO Outpatient Specialists: [ ] Inpatient Consults: [[facility]] PROBLEM LIST: UNSTABLE ANGINA, negative troponin ACUTE HYPOXIC RESPIRATORY FAILURE, resolved BILATERAL LOWER LOBE PNEUMONIA aspiration, treated Acute on chronic renal failure, not POA Acute on chronic diastolic congestive heart failure with mrEF per last echo Hypothyroidism Gout CHRONIC KIDNEY DISEASE STAGE 3 ESSENTIAL HYPERTENSION MORBID OBESITY INTERVAL HISTORY: [Patient is evaluated at bedside. She presented to the ED at the direction of her processor inspector after reporting chest pain that was associated with EKG changes at the office. Her labs revealed a relatively normal CBC and BNP. ABG was within normal limits. Serial troponins have been negative, EKG was read without acute findings. BNP was elevated at 1350. And D-dimer was elevated as well, CTA of the chest was negative for PE but revealed bilateral lower lobe infiltrates, R> L. she denies any current chest pain but states she has been experiencing chest pain that was worsened with activity for the last week on and off. Chest pain episodes with last typically about 5-10 minutes before resolving with rest. She is pending an echocardiogram. Cardiology was consulted, pending recommendation.] 01/09 Patient is evaluated at bedside. She was evaluated by cardiology with recommendations noted. She does have some bilateral wheezing on auscultation. CXR with findings concerning for aspiration. Her speech evaluation confirms s/s of aspiration. Her TSH is low, will adjust her levothyroxine dose accordingly. Her creatinine is elevated, with ROBBY. 01/10 patient is evaluated at bedside. Continues on modified diet per speech r ecommendation. Still has some cough with phlegm production and mild wheezing bilaterally. COVID flu and strep swabs are negative. She is pending further workup per Cardiology once her pneumonia has resolved. We will continue IV antibiotics and await further recommendation from Cardiology. Potassium level is normalized and creatinine is improved to 1.2. CXR from yesterday shows interval improvement. 01/11 Patient was evaluated at bedside. Her CBC is unremarkable. BNP shows a creatinine 1.3 today. COVID flu and strep were negative. Patient's CXR from yesterday shows no acute pulmonary infiltrate but mild pulmonary congestion. She has 1+ edema to bilateral lower extremities. Continues on modified diet per dietary recommendation. She continues with persistent bilateral wheezing on auscultation. Echocardiogram shows an EF of 35-40% with dyskinesia anteroseptal segments and hypokinesis of anterior wall, inferior and apical inferior segments per report. Pending Cardiology recommendation. 01/12 patient is evaluated at bedside. She continues with intermittent cough. Unable to expectorate phlegm. Still has persistent bilateral wheezing. Will adjust steroids to IV. Continues his modified diet per speech recommendation. She is being followed by Cardiology, pending further recommendation. REVIEW OF SYSTEMS: 12 point ROS reviewed with patient. Pertinent positives mentioned above. Otherwise negative. PHYSICAL EXAM: GENERAL: alert, weak, awake oriented x 3 HEENT: EOMI, Sclera non icteric, moist mucosa NECK: Supple, no JVD, trachea midline LUNGS: Diminished bilaterally, oxygen 2 L nasal cannula HEART: Regular rate and rhythm. Normal S1 and S2, without murmurs ABD: Abdomen soft, nontender. Bowel sounds present EXT: No clubbing cyanosis or edema NEURO: Alert and oriented to person, follows commands Vital Signs (last 8hr) Date Time Temp Pulse Resp B/P (MAP) Pulse Ox O2 Delivery O2 Flow Rate FiO2 01/12/25 18:47 74 19 N/A Room Air 21 01/12/25 18:43 98 20 01/12/25 16:00 97.9 105 19 150/95 96 Room Air LABS: Hematology Labs: Test 01/11/25 05:52 Range/Units White Blood Count 9.0 4.8-10.8 K/uL Red Blood Count 3.98 L 4.00-5.50 MIL/uL Hemoglobin 13.3 12.0-16.0 g/dL Hematocrit 41.5 36-48 % Mean Corpuscular Volume 104.3 H 79-99 fL Mean Corpuscular Hemoglobin 33.4 H 27.0-33.0 pg Mean Corpuscular Hemoglobin Concent 32.0 32.0-36.0 g/dL Red Cell Distribution Width 13.7 11.0-15.5 % Platelet Count 171 130-400 K/uL Mean Platelet Volume 11.2 H 7.5-10.5 fL Immature Granulocyte % (Auto) 0.3 0-1 % Neutrophils (%) (Auto) 82.3 H 40.0-77.0 % Lymphocytes (%) (Auto) 9.4 L 21.0-51.0 % Monocytes (%) (Auto) 7.9 3.0-13.0 % Eosinophils (%) (Auto) 0.0 0.0-8.0 % Basophils (%) (Auto) 0.1 0.0-5.0 % Neutrophils # (Auto) 7.4 1.8-7.7 K/uL Lymphocytes # (Auto) 0.8 L 1.0-4.8 K/uL Monocytes # (Auto) 0.7 0.1-1.0 K/uL Eosinophils # (Auto) 0.00 0.00-0.70 K/uL Basophils # (Auto) 0.01 0.00-0.20 K/uL Absolute Immature Granulocyte (auto 0.03 0-1 K/uL Nucleated Red Blood Cells 0.0 0.0-0.19 % White Cell Morphology Comment See comments Chemistry Labs: Test 01/12/25 04:48 01/11/25 05:52 Range/Units Sodium Level 144 136-145 mmol/L Potassium Level 4.4 3.5-5.1 mmol/L Chloride Level 108 101-111 mmol/L Carbon Dioxide Level 27 21-32 mmol/L Blood Urea Nitrogen 34 H 7-18 mg/dL Creatinine 1.3 H 0.5-1.0 mg/dL Glomerular Filtration Rate Calc 43 >90 mL/min Random Glucose 154 H 70-105 mg/dL Total Calcium 8.2 L 8.5-10.1 mg/dL B-Type Natriuretic Peptide 1240 H 0-100 pg/mL DIAGNOSTICS / RADIOLOGY RESULTS: [ ] PLAN Appreciate cardiology recommendation start solumedrol 20mg Q12H Continue Rocephin and flagyl Stop IV lasix as patient did not tolerate well with previous IV dose Resume po Lasix 20mg daily COVID flu and strep swabs negative Echocardiogram results abnormal Sputum culture pending Resume home meds as reconciled Further management per hospital course DCP TBD NEURO: Minimize central acting medications as possible. Maintain fall precautions, adequate lighting during the day PULMONARY: Supplemental 02 as needed. Maintain aspiration precautions at all times DuoNebs every 6 hours CARDIOVASCULAR: Follow hemodynamics. Vital signs per facility protocol Aspirin 81 mg p.o. daily Nitroglycerin 0.4 mg sublingual p.r.n. for moderate chest pain Atorvastatin 40 mg p.o. at bedtime 2D echo cardiology read Serial troponin level GI & NUTRITION: Continue with nutritional support. Continue stool softeners and laxatives as needed. KIDNEYS & ELECTROLYTES: Strict monitoring of intake, output and overall fluid balance. Avoid nephrotoxic medications to the extent possible. Medications to be dosed according to renal function. Monitor electrolytes and replace as needed All nephrotoxic drugs ENDOCRINE: Maintain blood glucose between 100-180 at all times. Hypoglycemia protocol in place INFECTIOUS DISEASE: Trend temperature, WBC and procalcitonin level Follow cultures, deescalate antibiotics as soon as possible. Panculture if new onset fever ONCOLOGY/HEMATOLOGY/COAGULATION: Monitor for s/s of bleeding Monitor hemoglobin, coagulation studies as needed SKIN: Pressure ulcer prevention per facility protocol Specialty mattress ORTHO/REHAB: Continue PT/OT Prophylaxis: Continue GI and DVT prophylaxis Code Status: Full Resuscitation Disposition: TBD Other: Total patient care time exceeds 35 minutes excluding all procedures. Case discussed with . LITA BECKFORD January 12, 2025 18:52
[2025-01-12] MEDS: Solu-medROL 40MG VIAL IVP SCH (20:23)
[2025-01-13] VITALS (14 sets, daily range): BP systolic 121–155; BP diastolic 75–91; PULSE 77–107; RESP 16–20; TEMP 97.6–98; O2SAT 93–96
--- NOTE | 2025-01-13 02:45 | NUR ---
NURSING ROUNDS PATIENT ASSISTED OUT OF BED TO USE BATHROOM, DENIES PAIN. PATIENT BACK TO BED CONTINUES WITH STEADY GAIT, MINIMAL ASSISTANCE NEEDED TO AMBULATE AND TRANSFER. AUDIBLE WHEEZING TO UPPER LUNG ERWIN, SPO2 96% ON ROOM AIR, DENIES SOB. CONTINUES ON DUONEB EVERY 6 HOURS, AND SCHEDULED SOLUMEDROL IV BID. PATIENT REINFORCED IMPORTANCE OF THICKENING HER WATER AND FLUIDS BEFORE DRINKING TO PREVENT ANY ASPIRATION OR WORSENING WHEEZING; PATIENT STATED UNDERSTANDING OF TEACHING. HOB KEPT ELEVATED. CALL LIGHT LEFT WITHIN REACH, BED ALARM ARMED.
--- NOTE | 2025-01-13 04:25 | PN ---
PROBLEM LIST: * Hypertension. * Hyperlipidemia. * Obesity. * History of chronic kidney disease, stage 3. * History of anemia. * History of gout. * Hypothyroidism, currently on supplement. * History of congestive heart failure. * Evidence of calcified coronary arteries with no epicardial disease by cardiac catheterization in 2015 and 2018. * Acute hypoxemic respiratory failure with reactive airway disease. * Cardiomyopathy with LVEF of 35-40% with grade 2 diastolic dysfunction with no significant valvular pathology by echocardiography on this admission. 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 SUBJECTIVE: This patient has been hospitalized predominantly because of worsening symptoms of shortness of breath. She had symptoms of chest discomfort while coughing, clearly noncardiac in nature. She has been maintained on IV methylprednisolone, furosemide, hydralazine, Flagyl, iron supplement, lisinopril, baby aspirin, allopurinol, ranolazine, atorvastatin, Rocephin, albuterol, famotidine, and additional p.r.n. medications. The patient is comfortable currently; however, she states that she is still having significant shortness of breath and wheezing and she has been having significant coughing that is quite bothersome. She has stable vital signs. She is currently afebrile. Her blood pressure is in the 125 to 130 systolic range. She is saturating at 94-97% on room air with a respirator of 18-20. LABORATORY DATA: The patient's laboratory studies yesterday revealed a white count of 9.0, hemoglobin and hematocrit had improved to 13.3 and 41.5 respectively. She has large indices with MCV of 104.3 and MCH of 33.4. Her platelet count is 171,000. The chemistries this morning revealed a sodium of 144, potassium 4.4, chloride is 108, CO2 is 27. Her BUN is 34 and creatinine is 1.3, which is less than her admission creatinine of 1.6. The GFR is 43 up from an admission GFR of 33. Random glucose is 154 with a calcium of 8.2. BNP done yesterday was 1240. PLAN: I have recommended that we continue the current conservative course. I will avoid any additional cardiac interventions at this point until the patient's pulmonary status has stabilized. She is clearly not a good candidate for any Lexiscan imaging at this point given her persistent asthma with active wheezing and persistent cough. Moreover, ideally, the patient's coronary calcium elevation will make CT angiography less reliable. I also think that the patient is not going to be able to lie flat long enough to allow us to perform a cardiac catheterization. We will continue management with a medical approach for now. The patient may be a candidate for additional assessment at a later time once her lung status has been stabilized. This may even be performed as an outpatient. TID: [id number] RECEIPT: [id number]
--- NOTE | 2025-01-13 04:50 | NUR ---
NURSING ROUNDS PATIENT ASSISTED TO BATHROOM, AMBULATES WITH STEADY GAIT AND STANDBY ASSIST. PATIENT ABLE TO GET IN AND OUT OF BED WITH MINIMAL ASSISTANCE. NO AUDIBLE WHEEZING AT THIS TIME, DENIES SOB. PATIENT SLEPT ABOUT 5 HOURS THROUGHOUT NIGHT. PIV FLUSHED, PATIENT DENIES PAIN TO PIV. CALL LIGHT WITHIN REACH, BED ALARM ARMED AND BELONGINGS WITHIN REACH.
[2025-01-13 06:15] LABS: BASOPHILS # (AUTO) 0.02 K/uL (0.00-0.20); BASOPHILS % (AUTO) 0.2 % (0.0-5.0); IMMATURE GRANULOCYTE ABSOLUTE 0.07 K/uL (0-1); LYMPHOCYTES # (AUTO) 0.7 K/uL (1.0-4.8); LYMPHOCYTES % (AUTO) 7.4 % (21.0-51.0); MEAN CORPUSCULAR HEMOGLOBIN 33.7 pg (27.0-33.0); MEAN CORPUSCULAR HGB CONC 33.4 g/dL (32.0-36.0); MEAN CORPUSCULAR VOLUME 100.7 fL (79-99); MONOCYTES # (AUTO) 0.3 K/uL (0.1-1.0); MONOCYTES % (AUTO) 2.6 % (3.0-13.0); NEUTROPHILS # (AUTO) 8.6 K/uL (1.8-7.7); NEUTROPHILS % (AUTO) 89.1 % (40.0-77.0); PLATELET COUNT (AUTO) 186 K/uL (130-400); RED BLOOD CELL COUNT(AUTO) 4.07 MIL/uL (4.00-5.50); RED CELL DISTRIBUTION WIDTH 13.7 % (11.0-15.5); WHITE BLOOD COUNT (AUTO) 9.7 K/uL (4.8-10.8)
[2025-01-13 06:34] LABS: BILIRUBIN,TOTAL 0.7 mg/dL (0.2-1.0); CREATININE 1.4 mg/dL (0.5-1.0); POTASSIUM 3.9 mmol/L (3.5-5.1); TOTAL PROTEIN, SERUM 6.3 g/dL (6.0-8.3)
--- NOTE | 2025-01-13 08:08 | PN ---
[facility] CARDIOLOGY PROGRESS NOTE Date Patient Seen: January 13, 2025 Time of Visit: 07:59 Problem List: * Hypertension. * Hyperlipidemia. * Obesity. * History of chronic kidney disease, stage 3. * History of anemia. * History of gout. * Hypothyroidism, currently on supplement. * History of congestive heart failure. * Evidence of calcified coronary arteries with no epicardial disease by cardiac catheterization in 2015 and 2018. * Acute hypoxemic respiratory failure with reactive airway disease. * Cardiomyopathy with LVEF of 35-40% with grade 2 diastolic dysfunction with no significant valvular pathology by echocardiography on this admission. 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 Interval History: Pt evaluated in her room, she is with improving respiratory status, now on room air. She denies chest pain overnight. Pt with cough still present, wheezing with exertion. We are adjusting her medication regimen today to see if we can optimize cardiac function medically and reduce risk of decompensation. She continues on abx as well and steroids are being tapered. No plans for stress test until her respiratory status is optimized and unable to do left heart cath until pt can lie flat. Pt has been successfully diuresed, BNP is much improved. Currently on room air. She should be monitored with ambulation prior to dc. Physical Examination: GENERAL: [No acute distress.] HEAD: [Normal with no signs of head trauma.] EYES: [PERRLA, EOMI, conjunctiva and sclera normal.] ENT: [Hearing grossly intact, normal oropharynx.] NECK: Short and thick, Supple without JVD. There is no tenderness, lymphadenopathy, or masses. No thyromegaly. Normal carotid upstrokes without b ruits.] LUNGS: [Diminished breath sounds bilaterally. There are right basilar rales, exp wheezes, no rhonchi.] HEART: [Normal rate and rhythm. Normal S1 and S2 without murmurs, gallop or rub.] VASC: [Peripheral pulses +2 bilaterally.] ABD: [Obese, Bowel sounds normal, soft, nontender, no masses, no organomegaly. No audible bruits.] : [Not examined] LYMPH: [No lymphadenopathy noted.] EXT: [No clubbing, cyanosis or edema.] SKIN: [No rashes or lesions noted.] NEURO: [Awake, alert, and oriented x3. No focal sensory or strength deficits noted.] Laboratory: [ ] Hematology Labs: Test 01/13/25 06:04 Range/Units White Blood Count 9.7 4.8-10.8 K/uL Red Blood Count 4.07 4.00-5.50 MIL/uL Hemoglobin 13.7 12.0-16.0 g/dL Hematocrit 41.0 36-48 % Mean Corpuscular Volume 100.7 H 79-99 fL Mean Corpuscular Hemoglobin 33.7 H 27.0-33.0 pg Mean Corpuscular Hemoglobin Concent 33.4 32.0-36.0 g/dL Red Cell Distribution Width 13.7 11.0-15.5 % Platelet Count 186 130-400 K/uL Mean Platelet Volume 11.0 H 7.5-10.5 fL Immature Granulocyte % (Auto) 0.7 0-1 % Neutrophils (%) (Auto) 89.1 H 40.0-77.0 % Lymphocytes (%) (Auto) 7.4 L 21.0-51.0 % Monocytes (%) (Auto) 2.6 L 3.0-13.0 % Eosinophils (%) (Auto) 0.0 0.0-8.0 % Basophils (%) (Auto) 0.2 0.0-5.0 % Neutrophils # (Auto) 8.6 H 1.8-7.7 K/uL Lymphocytes # (Auto) 0.7 L 1.0-4.8 K/uL Monocytes # (Auto) 0.3 0.1-1.0 K/uL Eosinophils # (Auto) 0.00 0.00-0.70 K/uL Basophils # (Auto) 0.02 0.00-0.20 K/uL Absolute Immature Granulocyte (auto 0.07 0-1 K/uL Nucleated Red Blood Cells 0.0 0.0-0.19 % Chemistry Labs: Test 01/13/25 06:04 Range/Units Sodium Level 140 136-145 mmol/L Potassium Level 3.9 3.5-5.1 mmol/L Chloride Level 106 101-111 mmol/L Carbon Dioxide Level 26 21-32 mmol/L Blood Urea Nitrogen 37 H 7-18 mg/dL Creatinine 1.4 H 0.5-1.0 mg/dL Glomerular Filtration Rate Calc 39 >90 mL/min Random Glucose 153 H 70-105 mg/dL Total Calcium 8.4 L 8.5-10.1 mg/dL Magnesium Level 2.00 1.80-2.40 mg/dL Total Bilirubin 0.7 0.2-1.0 mg/dL Aspartate Amino Transf (AST/SGOT) 34 10-37 U/L Alanine Aminotransferase (ALT/SGPT) 27 12-78 U/L Alkaline Phosphatase 77 50-136 U/L B-Type Natriuretic Peptide 437 H 0-100 pg/mL Total Protein 6.3 6.0-8.3 g/dL Albumin 3.0 L 3.5-5.0 g/dL Diagnostics / Radiology: PATIENT: ANGELA GUY MR#: [id number] : 1950 SEX: F AGE: 74 LOCATION: [facility] ORDER 43 STATUS: ADM IN REPORT#: [id number] SERVICE 37 REASON: unstable angina ORDERING PHYSICIAN: KEKE HUANG PROCEDURE: ECHO CMP - ECHO 2-D COMPLETE APPROVED REPORT EXAM: Two-dimensional and M-mode echocardiogram with Doppler and color Doppler. INDICATION ICD: Unstable angina I20.0 2D Dimensions RVDd 3.5 cm LVEF(%) 53.1 (>50%) LVED Vol(simp.) 96.0 mL IVSd 0.9 (0.7-1.1cm) FS(%) 27 % LVES Vol(simp.) 58.0 mL LVDd 4.8 (3.8-5.6cm) LA (2D) 3.7 (1.6-4.0cm) LVEF(%, simp.) 39 % PWd 0.9 (0.7-1.1cm) Ao Root(2D) 2.2 (2.0-3.7cm) LA ESV INDEX (BP) 43.59 mL/m2 LVDs 3.5 (2.5-4.0cm) LVOT diam 1.9 (1.8-2.4cm) IVC diam 1.0 cm Deformation Strain Apical 4 -11.9 % Apical 2 -14.7 % Apical 3 -13.3 % Global Strain -13.3 % M-Mode Dimensions EPSS 1.3 cm LA (MM) 4.2 (1.6-4.0cm) Ao Root(MM) 2.4 (2.0-3.7cm) Aortic Valve AoV Vmax 2.2 m/s Ao Peak GR 19.2 mmHg LVOT Vmax 1.3 m/s AoV VTI 0.4 m Ao Mean GR 10.6 mmHg LVOT VTI 0.25 m NUPUR (VMAX) 1.75 cm2 NUPUR (VTI) 1.8 cm2 Mitral Valve MV E Vmax 52.2 cm/s DECEL Time 131 ms MV A Vmax 118.1 cm/s P 1/2 T 37 ms E/A ratio 0.4 MVA (PHT) 6.0 cm2 TDI E/E' Medial 5.5 E/E' Lateral 7.9 Medial E' Peak V 9.42 cm/s Lateral E' Peak V 6.63 cm/s Tricuspid Valve TR Vmax 2.6 m/s RVSP 26.0 mmHg TR Peak GR 26.7 mmHg Left Ventricle The left ventricle is normal size. Dyskinesia of the anteroseptal segment. Hypokinesis of the anterior wall. Hypokinesis of the inferior, apical inferior segments. There is normal left ventricular wall thickness. LVEF is 35-40%. Grade II diastolic dysfunction. Right Ventricle The right ventricle is normal size. The right ventricular systolic function is normal. Atria The left atrium is moderately dilated. The right atrium is dilated. Aortic Valve The aortic valve is normal in structure. No aortic regurgitation is present. There is no aortic valvular stenosis. Mitral Valve The mitral valve is normal in structure. There is no mitral valve regurgitation noted. There is no mitral valve stenosis. Tricuspid Valve The tricuspid valve is normal in structure. There is trace tricuspid valve regurgitation noted. Pulmonic Valve The pulmonary valve is normal in structure. There is no pulmonic valvular regurgitation. Great Vessels The aortic root is normal in size. The IVC is normal in size and collapses >50% with inspiration. Pericardium There is no pericardial effusion. Other Information Quality : Good Rhythm : NSR Conclusion The left ventricular systolic function is moderately reduced. LVEF is 35-40%. Dyskinesia of the anteroseptal segment. Hypokinesis of the anterior wall. Hypokinesis of the inferior, apical inferior segments. Grade II diastolic dysfunction. The left atrium is moderately dilated. DICTATED BY: GIL ALFRED DO DATE: 01/08/25 0742 ELECTRONICALLY SIGNED BY: GIL ALFRED DO DATE: 01/08/25 1407 Impression and Plan: Add jardiance 10mg po daily Add aldactone 25mg po bid Add metoprolol 25mg po bid stop lisinopril Add losartan 25mg po daily Continue oral lasix 20mg po daily Monitor renal function I/O mointoring strictly daily weight 1.5 liter FR and 2gm na, needs instruction prior to dc. REVA MAN NP January 13, 2025 08:08
[2025-01-13] MEDS: LoSARTan 25 MG TABLET PO SCH (08:30)
[2025-01-13] MEDS: EMPAGLIFLOZIN 10MG TABLET PO SCH (08:30)
[2025-01-13] MEDS: metoPROLOL tartRATE 25 MG TAB PO SCH (08:31)
[2025-01-13] MEDS: SPIRONOLACTONE 25 MG TAB PO SCH (08:31)
--- NOTE | 2025-01-13 09:20 | HMCIMG ---
Exam Type: CHEST 1VW Clinical Information: sob Comparison: None Findings: The lungs are clear of infiltrates. The heart is enlarged. Bony and soft tissue structures of the chest wall are unremarkable. IMPRESSION: Cardiomegaly. Clear lungs.
[2025-01-14] VITALS (8 sets, daily range): BP systolic 140–156; BP diastolic 80–91; PULSE 72–81; RESP 18–20; TEMP 97.3–97.8; O2SAT 96–98
--- NOTE | 2025-01-14 05:10 | PN ---
[facility] PROGRESS NOTE Date Patient Seen: January 13, 2025 Time of Visit: 15:07 Supervising Physician: [Dr. Baron] Primary Care Physician: DR. CHUYITA GUERRERO Outpatient Specialists: [ ] Inpatient Consults: [[facility]] PROBLEM LIST: UNSTABLE ANGINA, negative troponin ACUTE HYPOXIC RESPIRATORY FAILURE, resolved BILATERAL LOWER LOBE PNEUMONIA aspiration, treated Acute on chronic renal failure, not POA Acute on chronic diastolic congestive heart failure with mrEF per last echo Hypothyroidism Gout CHRONIC KIDNEY DISEASE STAGE 3 ESSENTIAL HYPERTENSION MORBID OBESITY INTERVAL HISTORY: [Patient is evaluated at bedside. 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 Her labs revealed a relatively normal CBC and BNP. ABG was within normal limits. Serial troponins have been negative, EKG was read without acute findings. BNP was elevated at 1350. And D-dimer was elevated as well, CTA of the chest was negative for PE but revealed bilateral lower lobe infiltrates, R> L. she denies any current chest pain but states she has been experiencing chest pain that was worsened with activity for the last week on and off. Chest pain episodes with last typically about 5-10 minutes before resolving with rest. She is pending an echocardiogram. Cardiology was consulted, pending recommendation.] 01/09 Patient is evaluated at bedside. She was evaluated by cardiology with recommendations noted. She does have some bilateral wheezing on auscultation. CXR with findings concerning for aspiration. Her speech evaluation confirms s/s of aspiration. Her TSH is low, will adjust her levothyroxine dose accordingly. Her creatinine is elevated, with ROBBY. 01/10 patient is evaluated at bedside. Continues on modified diet per speech r ecommendation. Still has some cough with phlegm production and mild wheezing bilaterally. COVID flu and strep swabs are negative. She is pending further workup per Cardiology once her pneumonia has resolved. We will continue IV antibiotics and await further recommendation from Cardiology. Potassium level is normalized and creatinine is improved to 1.2. CXR from yesterday shows interval improvement. 01/11 Patient was evaluated at bedside. Her CBC is unremarkable. BNP shows a creatinine 1.3 today. COVID flu and strep were negative. Patient's CXR from yesterday shows no acute pulmonary infiltrate but mild pulmonary congestion. She has 1+ edema to bilateral lower extremities. Continues on modified diet per dietary recommendation. She continues with persistent bilateral wheezing on auscultation. Echocardiogram shows an EF of 35-40% with dyskinesia anteroseptal segments and hypokinesis of anterior wall, inferior and apical inferior segments per report. Pending Cardiology recommendation. 01/12 patient is evaluated at bedside. She continues with intermittent cough. Unable to expectorate phlegm. Still has persistent bilateral wheezing. Will adjust steroids to IV. Continues his modified diet per speech recommendation. She is being followed by Cardiology, pending further recommendation. 01/13 patient is evaluated at bedside. She is saturating well on room air, how ever continues with bilateral wheezing. Was found to have positive signs and symptoms of aspiration and continues on IV antibiotics for same. Patient was considered for invasive cardio evaluation, however given persistent respiratory symptoms she is unable to do so at this time. We will continue current medical management and plan for outpatient cardiac evaluation. REVIEW OF SYSTEMS: 12 point ROS reviewed with patient. Pertinent positives mentioned above. Otherwise negative. PHYSICAL EXAM: GENERAL: alert, weak, awake oriented x 3 HEENT: EOMI, Sclera non icteric, moist mucosa NECK: Supple, no JVD, trachea midline LUNGS: Diminished bilaterally, oxygen 2 L nasal cannula HEART: Regular rate and rhythm. Normal S1 and S2, without murmurs ABD: Abdomen soft, nontender. Bowel sounds present EXT: No clubbing cyanosis or edema NEURO: Alert and oriented to person, follows commands Vital Signs (last 8hr) Date Time Temp Pulse Resp B/P (MAP) Pulse Ox O2 Delivery O2 Flow Rate FiO2 01/14/25 04:00 97.3 75 19 140/80 96 Room Air 01/14/25 00:12 97.9 80 18 142/83 97 Room Air 01/13/25 23:48 86 18 N/A Room Air 21 01/13/25 23:08 77 20 LABS: Hematology Labs: Test 01/13/25 06:04 Range/Units White Blood Count 9.7 4.8-10.8 K/uL Red Blood Count 4.07 4.00-5.50 MIL/uL Hemoglobin 13.7 12.0-16.0 g/dL Hematocrit 41.0 36-48 % Mean Corpuscular Volume 100.7 H 79-99 fL Mean Corpuscular Hemoglobin 33.7 H 27.0-33.0 pg Mean Corpuscular Hemoglobin Concent 33.4 32.0-36.0 g/dL Red Cell Distribution Width 13.7 11.0-15.5 % Platelet Count 186 130-400 K/uL Mean Platelet Volume 11.0 H 7.5-10.5 fL Immature Granulocyte % (Auto) 0.7 0-1 % Neutrophils (%) (Auto) 89.1 H 40.0-77.0 % Lymphocytes (%) (Auto) 7.4 L 21.0-51.0 % Monocytes (%) (Auto) 2.6 L 3.0-13.0 % Eosinophils (%) (Auto) 0.0 0.0-8.0 % Basophils (%) (Auto) 0.2 0.0-5.0 % Neutrophils # (Auto) 8.6 H 1.8-7.7 K/uL Lymphocytes # (Auto) 0.7 L 1.0-4.8 K/uL Monocytes # (Auto) 0.3 0.1-1.0 K/uL Eosinophils # (Auto) 0.00 0.00-0.70 K/uL Basophils # (Auto) 0.02 0.00-0.20 K/uL Absolute Immature Granulocyte (auto 0.07 0-1 K/uL Nucleated Red Blood Cells 0.0 0.0-0.19 % Chemistry Labs: Test 01/13/25 06:04 Range/Units Sodium Level 140 136-145 mmol/L Potassium Level 3.9 3.5-5.1 mmol/L Chloride Level 106 101-111 mmol/L Carbon Dioxide Level 26 21-32 mmol/L Blood Urea Nitrogen 37 H 7-18 mg/dL Creatinine 1.4 H 0.5-1.0 mg/dL Glomerular Filtration Rate Calc 39 >90 mL/min Random Glucose 153 H 70-105 mg/dL Total Calcium 8.4 L 8.5-10.1 mg/dL Magnesium Level 2.00 1.80-2.40 mg/dL Total Bilirubin 0.7 0.2-1.0 mg/dL Aspartate Amino Transf (AST/SGOT) 34 10-37 U/L Alanine Aminotransferase (ALT/SGPT) 27 12-78 U/L Alkaline Phosphatase 77 50-136 U/L B-Type Natriuretic Peptide 437 H 0-100 pg/mL Total Protein 6.3 6.0-8.3 g/dL Albumin 3.0 L 3.5-5.0 g/dL DIAGNOSTICS / RADIOLOGY RESULTS: [ ] PLAN Appreciate cardiology recommendation Continue solumedrol 20mg Q12H 6 min walk in AM Continue Rocephin and flagyl Continue po Lasix 20mg daily COVID flu and strep swabs negative Echocardiogram results abnormal Sputum culture pending Resume home meds as reconciled Further management per hospital course DCP TBD NEURO: Minimize central acting medications as possible. Maintain fall precautions, adequate lighting during the day PULMONARY: Supplemental 02 as needed. Maintain aspiration precautions at all times DuoNebs every 6 hours CARDIOVASCULAR: Follow hemodynamics. Vital signs per facility protocol Aspirin 81 mg p.o. daily Nitroglycerin 0.4 mg sublingual p.r.n. for moderate chest pain Atorvastatin 40 mg p.o. at bedtime 2D echo cardiology read Serial troponin level GI & NUTRITION: Continue with nutritional support. Continue stool softeners and laxatives as needed. KIDNEYS & ELECTROLYTES: Strict monitoring of intake, output and overall fluid balance. Avoid nephrotoxic medications to the extent possible. Medications to be dosed according to renal function. Monitor electrolytes and replace as needed All nephrotoxic drugs ENDOCRINE: Maintain blood glucose between 100-180 at all times. Hypoglycemia protocol in place INFECTIOUS DISEASE: Trend temperature, WBC and procalcitonin level Follow cultures, deescalate antibiotics as soon as possible. Panculture if new onset fever ONCOLOGY/HEMATOLOGY/COAGULATION: Monitor for s/s of bleeding Monitor hemoglobin, coagulation studies as needed SKIN: Pressure ulcer prevention per facility protocol Specialty mattress ORTHO/REHAB: Continue PT/OT Prophylaxis: Continue GI and DVT prophylaxis Code Status: Full Resuscitation Disposition: TBD Other: Total patient care time exceeds 35 minutes excluding all procedures. Case discussed with . LITA BECKFORD January 14, 2025 05:10
[2025-01-14 06:01] LABS: CREATININE 1.6 mg/dL (0.5-1.0); MAGNESIUM 2.1 mg/dL (1.80-2.40); POTASSIUM 4.2 mmol/L (3.5-5.1)
--- NOTE | 2025-01-14 07:54 | PN ---
PROBLEM LIST: * Hypertension. * Hyperlipoproteinemia. * Obesity. * Chronic kidney disease, stage 3. * History of anemia. * History of gout. * Hypothyroidism, currently on supplement. * History of congestive heart failure. * Evidence of calcified coronary arteries with no epicardial disease by cardiac catheterization in 2014 and 2018. * Acute hypoxemic respiratory failure with reactive airway disease, resolved. * Cardiomyopathy with EF of 35% to 40% with grade 2 diastolic dysfunction with no significant pathology by echocardiography on this admission. * Marked intraventricular conduction delay with features of left bundle branch block and right bundle branch block. HISTORY OF PRESENT ILLNESS: This patient has been hospitalized prior because of compromised state with advanced CHF. Her status has improved significantly on the current regimen. The patient is currently ambulatory and has felt better; however, she has continued to have periods of wheezing, and persistent coughing, which is being addressed by the primary care team and by Pulmonary Medicine. OVERNIGHT HOSPITAL COURSE: Overnight, the patient has been stable. Vital signs are remarkable for heart rate in the 75-80 per minute range. She is afebrile. Her blood pressure is 140/80. She has a saturation of 96% on room air. LABORATORY STUDIES: Laboratory studies were done yesterday revealing a white count of 9.7 with an H and H of 13.7 and 41.0, respectively. The patient's indices are increased, suggestive of B12 and folic acid deficiency. She has platelet count of 186,000. Chemistries this morning revealed a sodium of 143, potassium of 4.2, chloride is 109, CO2 is 25, BUN is 48, creatinine is up to 1.6 from 1.4 yesterday and 1.3 on the 5th. The GFR is down to 33 from 43 on the 5th. The patient's random glucose is 181, the calcium is 8.1, and the albumin is low at 3.0. The patient's BNP was 437. The magnesium was normal at 2.1. MEDICATIONS: This patient is currently maintained on metoprolol 25 b.i.d., Jardiance 10 mg daily, spironolactone 25 b.i.d., losartan 25 daily, methylprednisolone 40 IV b.i.d., furosemide 20 mg p.o. daily, hydralazine at 10 mg p.o. t.i.d., Flagyl, ferrous sulfate, baby aspirin, allopurinol, ranolazine, atorvastatin, Rocephin, albuterol, famotidine, and p.r.n. medications. ASSESSMENT AND PLAN: As mentioned in our previous notes, the patient is currently not ideally suited for a cardiac evaluation given the fact that she is having underlying pulmonary process, requiring steroid administration. We will continue the care and supportive measures and follow along with the pulmonary team and the primary care team. TID: [id number] RECEIPT: [id number]
[2025-01-14] MEDS ORDERED: METH4TAB15 PO (16:28)
--- NOTE | 2025-01-14 16:28 | DS ---
[facility] DISCHARGE SUMMARY Date Patient Seen: January 14, 2025 Time of Visit: 16:28 Supervising Physician: [Dr. Iyer] Primary Care Physician: DR. CHUYITA GUERRERO Outpatient Specialists: [ ] Inpatient Consults: [[facility]] PROBLEM LIST: UNSTABLE ANGINA, negative troponin ACUTE HYPOXIC RESPIRATORY FAILURE, resolved BILATERAL LOWER LOBE PNEUMONIA aspiration, treated Acute on chronic renal failure, not POA Acute on chronic diastolic congestive heart failure with mrEF per last echo Hypothyroidism Gout CHRONIC KIDNEY DISEASE STAGE 3 ESSENTIAL HYPERTENSION [facility]RSE: HPI (per admitting provider) [Patient is evaluated at bedside. 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 Her labs revealed a relatively normal CBC and BNP. ABG was within normal limits. Serial troponins have been negative, EKG was read without acute findings. BNP was elevated at 1350. And D-dimer was elevated as well, CTA of the chest was negative for PE but revealed bilateral lower lobe infiltrates, R> L. she denies any current chest pain but states she has been experiencing chest pain that was worsened with activity for the last week on and off. Chest pain episodes with last typically about 5-10 minutes before resolving with rest. She is pending an echocardiogram. Cardiology was consulted, pending recommendation.] 01/09 Patient is evaluated at bedside. She was evaluated by cardiology with recommendations noted. She does have some bilateral wheezing on auscultation. CXR with findings concerning for aspiration. Her speech evaluation confirms s/s of aspiration. Her TSH is low, will adjust her levothyroxine dose accordingly. Her creatinine is elevated, with ROBBY. 01/10 patient is evaluated at bedside. Continues on modified diet per speech recommendation. Still has some cough with phlegm production and mild wheezing bilaterally. COVID flu and strep swabs are negative. She is pending further workup per Cardiology once her pneumonia has resolved. We will continue IV antibiotics and await further recommendation from Cardiology. Potassium level is normalized and creatinine is improved to 1.2. CXR from yesterday shows interval improvement. 01/11 Patient was evaluated at bedside. Her CBC is unremarkable. BNP shows a creatinine 1.3 today. COVID flu and strep were negative. Patient's CXR from yesterday shows no acute pulmonary infiltrate but mild pulmonary congestion. She has 1+ edema to bilateral lower extremities. Continues on modified diet per dietary recommendation. She continues with persistent bilateral wheezing on auscultation. Echocardiogram shows an EF of 35-40% with dyskinesia anteroseptal segments and hypokinesis of anterior wall, inferior and apical inferior segments per report. Pending Cardiology recommendation. 01/12 patient is evaluated at bedside. She continues with intermittent cough. Unable to expectorate phlegm. Still has persistent bilateral wheezing. Will adjust steroids to IV. Continues his modified diet per speech recommendation. She is being followed by Cardiology, pending further recommendation. 01/13 patient is evaluated at bedside. She is saturating well on room air, however continues with bilateral wheezing. Was found to have positive signs and symptoms of aspiration and continues on IV antibiotics for same. Patient was considered for invasive cardio evaluation, however given persistent respiratory symptoms she is unable to do so at this time. We will continue current medical management and plan for outpatient cardiac evaluation. 01/14 patient is evaluated at bedside. Her cough and wheezing is much improved. She did obtain a 6 minute walk which she passed. Cardiology is recommending outpatient follow-up of CAD given acute symptoms. She completed seven days of IV antibiotics. Patient was advised to modify diet according to speech therapy recommendations in order to help prevent aspiration. Was also advised that she should follow with her PCP for continued speech therapy evaluation outpatient. Sister was updated on clinical status and medical treatment plan over the phone, both verbalized agreement. 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 PCP notified of patient�s admission, hospital course and discharge. New Medications: Methylprednisolone (Methylprednisolone) 4 Mg Tab.ds.pk 0 PO AD, #21 TAB 0 Refills take 6 Pills Day 1, 5 Pills Day 2, 4 Pills Day 3, 3 Pills Day 4, 2 Pills Day 5 and 1 pill Day 6 Continued Medications: Allopurinol (Allopurinol) 100 Mg Tablet 1 TAB PO DAILY for 30 Days, #30 TAB 0 Refills Aspirin (Aspirin) 81 Mg Tab.chew 81 MG PO DAILY, TAB.CHEW Atenolol (Atenolol) 50 Mg Tablet 50 MG PO DAILY, TAB Dapagliflozin Propanediol (Farxiga) 10 Mg Tablet 1 TAB PO DAILY for 30 Days, #30 TAB 0 Refills Ferrous Sulfate (Ferrous Sulfate) 325 Mg (65 Mg Iron) Tablet 325 MG PO AD, TAB Levothyroxine Sodium (Levothyroxine Sodium) 150 Mcg Tablet 1 TAB PO DAILY for 30 Days, #30 TAB 0 Refills Lisinopril (Lisinopril) 20 Mg Tablet 20 MG PO DAILY, TAB Medroxyprogesterone Acetate (Medroxyprogesterone Acetate) 10 Mg Tablet 10 MG PO DAILY, TAB Nitroglycerin (Nitroglycerin) 0.4 Mg Tab.subl 1 TAB SL AD for chest pain, #25 TAB 0 Refills 1st sign of attack; may repeat every 5 mins; if pain persists after 3 in 15 min, medical attention is recommended Pravastatin Sodium (Pravastatin Sodium) 20 Mg Tablet 20 MG PO HS, TAB Ranolazine (Ranexa) 500 Mg Tab.er.12h 500 MG PO AD, TAB PHYSICAL EXAM: GENERAL: alert, weak, awake oriented x 3 HEENT: EOMI, Sclera non icteric, moist mucosa NECK: Supple, no JVD, trachea midline LUNGS: Diminished bilaterally, oxygen 2 L nasal cannula HEART: Regular rate and rhythm. Normal S1 and S2, without murmurs ABD: Abdomen soft, nontender. Bowel sounds present EXT: No clubbing cyanosis or edema NEURO: Alert and oriented to person, follows commands FOLLOW-UP: Continue Medrol Dosepak upon discharge. Completed IV antibiotics x7 days. Follow with the Cardiology outpatient for further evaluation and management of CAD. Continue current medications. Obtain referral from PCP for outpatient speech evaluation continue modified diet as discussed with thickener solution to help prevent aspiration. RECOMMENDATIONS: See Discharge Instructions This case was seen and discussed with my supervising physician. More than 30 minutes spent on discharge process, including evaluation of the patient, discussion with nursing staff, medication reconciliation and follow-up appointments LITA BECKFORD January 14, 2025 16:28
--- NOTE | 2025-01-14 17:11 | NUR ---
Discharge instructions given and explained. PIV is removed. All belongings are packed by the patient. She is then wheeled downstairs in a wheelchair and she departed in a private vehicle.
--- NOTE | 2025-01-15 16:07 | NUR ---
Transitional Phone Call Patient is Telugu speaking. Spoke with patient, "susan hernandez." [facility] has not received the steroid prescription, [facility] will have my daughter to go pick it up this evening; denies questions or concerns. [facility] has set up the follow up appointment with PCP - Dr. Tamar Montñao on 01/21/2025 at 1030. [facility] will set up follow up appointment with cardiology - Dr. Hearn with PCP. Requests assistance with transportation; referred to [facility]; notified Delfina. No further questions or concerns.
== END 2025-01-14 17:17 | disposition home or self-care (01) | DRG 177 ==
LOC: EDH 14:33 → EDHIP 22:38 → 3CH 01-08 01:19
PROVIDERS: ADMIT Internal Medicine Critical Care Medicine; ATTEND Internal Medicine Critical Care Medicine
DX: J69.0 Pneumonitis due to inhalation of food and vomit (principal); I50.43 Acute on chronic combined systolic (congestive) and diastolic (congestive) heart failure; J96.01 Acute respiratory failure with hypoxia; I25.110 Atherosclerotic heart disease of native coronary artery with unstable angina pectoris; N30.00 Acute cystitis without hematuria; I13.0 Hypertensive heart and chronic kidney disease with heart failure and stage 1 through stage 4 chronic kidney disease, or unspecified chronic kidney disease; N17.9 Acute kidney failure, unspecified; I42.8 Other cardiomyopathies; I45.2 Bifascicular block; E78.00 Pure hypercholesterolemia, unspecified; J45.909 Unspecified asthma, uncomplicated; E66.01 Morbid (severe) obesity due to excess calories; N18.30 Chronic kidney disease, stage 3 unspecified; E03.9 Hypothyroidism, unspecified; I44.7 Left bundle-branch block, unspecified; M10.9 Gout, unspecified; Z90.710 Acquired absence of both cervix and uterus; Z95.5 Presence of coronary angioplasty implant and graft; Z68.37 Body mass index [BMI] 37.0-37.9, adult
CPT/HCPCS: 36415; 36600; 71045; 71270; 74230; 80048; 80053; 80061; 81001; 82550; 82803; 83735; 83880; 84145; 84443; 84484; 85025; 85378; 85610; 85730; 87635; 87804; 87880; 92526; 92610; 92611; 93005; 93306; 93356; 94640; 94664; 94760; 96365; 96368; 96375; 99285; G0378; J0360; J0456; J0696; J1200; J1644; J1938; J1940; J2919; J3480; J3490; Q9967

== ENCOUNTER → 2025-01-29 | Outpatient (CLI) | payer OTHER, MEDICARE ==
[~2025-01-29] MED LIST changes: +ALLO100T PO; -CHOL400C9 PO; -COLC0.6C3 PO; +DAPA10TA PO; -FEBU40TA PO; +FERR-72 PO; -FURO20TA4 PO; +LEVO150T11 PO; -LEVO200T10 PO; +METH4TAB15 PO; +NITR0.4T50 SL; +RANO500T2 PO; -TRAM50TA4 PO
[2025-01-29] MEDS: REGADENOSON 0.4 MG/5 ML PF SYG IVP ONE (15:40)
== END | disposition home or self-care (01) ==
LOC: SHCH 07:45
PROVIDERS: ATTEND Internal Medicine Cardiovascular Disease
DX: I42.0 Dilated cardiomyopathy (principal); R07.9 Chest pain, unspecified; R06.00 Dyspnea, unspecified; R05.9 Cough, unspecified
CPT/HCPCS: 78452; 93017; J2785; A9500 ×2

== ENCOUNTER 2025-03-23 09:37 | Day surgery (SDC) | payer OTHER, MEDICARE ==
[2025-03-19 14:27] LABS: IMMATURE GRANULOCYTE ABSOLUTE 0.02 K/uL (0-1); NUCLEATED RED BLOOD CELLS 0.0 % (0.0-0.19); PLATELET COUNT (AUTO) 180 K/uL (130-400); RED BLOOD CELL COUNT(AUTO) 3.99 MIL/uL (4.00-5.50); RED CELL DISTRIBUTION WIDTH 14.3 % (11.0-15.5); WHITE BLOOD COUNT (AUTO) 5.7 K/uL (4.8-10.8)
[2025-03-19 14:28] LABS: APPEARANCE,URINE CLEAR (CLEAR); GLUCOSE, URINE (UA) NEGATIVE (NEGATIVE); LEUKOCYTE ESTERASE ,URINE NEGATIVE Leu/uL (NEGATIVE); NITRATE,URINE NEGATIVE (NEGATIVE); OCCULT BLOOD,URINE NEGATIVE (NEGATIVE)
[2025-03-19 14:29] LABS: ADD UA MICROSCOPIC YES
[2025-03-19 14:33] LABS: OTHER CASTS, URINE 1 /LPF (None Seen); SQUAMOUS EPITHELIAL CELL,UR FEW /HPF (0-2)
[2025-03-19 14:41] LABS: INR 1.07 (0.85-1.15)
[2025-03-19 14:42] VITALS: BP 159/86; PULSE 82; RESP 18; TEMP 97.2
[2025-03-19 14:47] LABS: CREATININE 1.3 mg/dL (0.5-1.0); GLOMERULAR FILTR. RATE CALC 43.0 mL/min (>90); GLUCOSE,RANDOM 123.0 mg/dL (70-105); SODIUM SERUM 145.0 mmol/L (136-145); UREA NITROGEN, BLOOD 25.0 mg/dL (7-18)
--- NOTE | 2025-03-19 15:39 | EKG ---
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
--- NOTE | 2025-03-19 16:54 | HMCIMG ---
EXAM: CR Chest, 1 View. CLINICAL HISTORY: PRE OP COMPARISON: Radiograph dated January 13, 2025 FINDINGS: LUNGS: There is no mass, infiltrate, or acute pulmonary abnormality. Mild bibasilar airspace disease may reflect atelectasis. PLEURAL SPACES: No pleural effusion or pneumothorax. MEDIASTINUM: Cardiac size and mediastinal contours within normal limits. BONES: No aggressive appearing osseous lesion seen. IMPRESSION: No acute cardiopulmonary pathology is evident. /Fertile
--- NOTE | 2025-03-19 17:07 | NUR ---
report notified ana echavarria np pt started taking premeds for iodine allergy today and took one dose of each.. received instructions to have pt stop taking and resume on Sunday. pt notified and voiced understanding
--- NOTE | 2025-03-20 15:18 | NUR ---
REPORTED BNP: 920 AND CREATININE OF 1.3 TO REVA CANDELARIA, DIELECTRIC TESTER FOR DR. GALLEGOS. PER REVA, HAVE PATIENT TAKE HER FUROSEMIDE DAILY FROM NOW UNTIL DAY OF PROCEDURE, AND RECHECK BMP/BNP ON FRIDAY 03/23 CALLED PATIENT TO UPDATE ON NEW INSTRUCTIONS, NO ANSWER, UNABLE TO LEAVE MESSAGE
--- NOTE | 2025-03-20 16:00 | NUR ---
RE: LABS CALLED PATIENT AND INSTRUCTED HER TO TAKE HER LASIX DAILY STARTING TODAY THROUGH SUNDAY. PATIENT VERBALIZED UNDERSTANDING.
[2025-03-23] VITALS (7 sets, daily range): BP systolic 139–166; BP diastolic 67–87; PULSE 68–71; RESP 14–16; TEMP 97.3
[~2025-03-23] VITALS: Ht 149.9 cm; Wt 82.7 kg
[~2025-03-23 09:37] MED LIST changes: +CHOL400T4 PO; -DAPA10TA PO; +FURO20TA4 PO; -METH4TAB15 PO; -PRAV20TA4 PO; +PRAV20TA59 PO
[2025-03-23 10:58] LABS: CREATININE 1.6 mg/dL (0.5-1.0); GLOMERULAR FILTR. RATE CALC 33.0 mL/min (>90); GLUCOSE,RANDOM 111.0 mg/dL (70-105); SODIUM SERUM 143.0 mmol/L (136-145); UREA NITROGEN, BLOOD 34.0 mg/dL (7-18)
[2025-03-23] MEDS ORDERED: 0.9%NACL 1000ML 1,000 ML IV SCH (11:00)
[2025-03-23] MEDS ORDERED: IOHEXOL 350 MG/ML 100ML INFUS..BTL IV ONE (11:25)
[2025-03-23] MEDS ORDERED: NITROGLYCERIN 50MG VIAL ONE (11:25)
[2025-03-23] MEDS ORDERED: HEParin-NS 1,000 UNIT/500 ML 1,000 ML IV ONE (11:25)
[2025-03-23] MEDS ORDERED: LIDOCAINE HCL 400MG/20ML VIAL ONE (11:25)
[2025-03-23] MEDS ORDERED: SODIUM BICARB 50MEQ 50ML VIAL 50 ML ONE (11:25)
[2025-03-23] MEDS ORDERED: MIDAZOLAM HCL 1 MG/ML 2ML VIAL ONE (12:01)
[2025-03-23] MEDS ORDERED: FAMOTIDINE 20MG VIAL IV ONE (12:19)
--- NOTE | 2025-03-23 13:11 | PR ---
PROCEDURE NOTE PROCEDURES: * Left heart catheterization. * Selective diagnostic right and left coronary arteriogram. * Conscious sedation for 30 minutes. INDICATIONS: * Cardiomyopathy. * Recurrent dyspnea and chest discomfort. * Abnormal Cardiolite. COMPLICATIONS: None. TOTAL CONTRAST: 40 mL. APPROACH: Right radial approach. DESCRIPTION OF PROCEDURE: The patient was taken to the cardiac laboratory chemical assistant after the appropriate operative consent was signed. She was prepped and draped in the usual fashion. After conscious sedation was administered, the right radial artery region was infiltrated with 2% Xylocaine without epinephrine. A 6-Guyanese slender sheath was then advanced in a retrograde fashion by a modified Seldinger technique. A TIG 4 catheter was advanced over an indwelling wire and positioned in the left ventricular cavity. Left ventricular end-diastolic pressure measurement was obtained. Unfortunately, the patient continued to have markedly elevated left ventricular end-diastolic pressures more than 40. This did not respond to intraventricular nitroglycerin. Pullback revealed no aortic stenosis and ventriculography was deferred. The patient had an EF of less than 35% by 2D echo and by nuclear imaging. The patient's calculated EF by nuclear imaging was measured at 29%. The catheter was then engaged in the ostium of the left main. Imaging was obtained in multiplane. The left main was a large vessel that shortened its course and free of disease. It bifurcated into an LAD, and a circumflex. The LAD is a moderately sized vessel that gave rise to several diagonals and septal perforators. The LAD had minimal calcified luminal irregularity in the mid segment with no significant stenotic lesions. Circumflex was a large vessel that gave rise to a moderately sized OM1, a small OM2, and a large OM3. There were no other significant lesions. The catheter was then redirected and engaged in the ostium of the right coronary artery. This was imaged in multiple planes. This was calcified and had mild luminal irregularities and a tortuous course distally. It gave rise to an acute margin of PDA and PLVB. There were no significant stenotic lesions. At this point, the procedure was completed, the catheter was withdrawn over an indwelling wire. Radial band was applied with hemostasis. The patient tolerated the procedure well and left the cardiac laboratory chemical assistant in stable condition. FINAL IMPRESSION: * Dilated, nonischemic cardiomyopathy. * Minimal luminal irregularity with no significant stenotic lesions. * Elevated LVDP. * Left bundle branch block. PLAN: Optimize medical management, consideration for biventricular AICD implant will be given. TID: [id number] RECEIPT: [id number]
[2025-03-23] MEDS ORDERED: FURO40TA7 PO (13:48)
[2025-03-23] MEDS ORDERED: SPIR25TA PO (13:48)
--- NOTE | 2025-03-23 15:00 | NUR ---
VASBAND REMOVED SITE ASYMPTOMATIC.
--- NOTE | 2025-03-23 15:33 | NUR ---
BOTH PT AND FRIEND GIVEN VERBAL AND WRITTEN DISCHARGE INSTRUCTIONS. IV REMOVED SITE ASYMPTOMATIC RIGHT RADIAL SITE ASYMPTOMATIC. PT TAKEN OUT VIA WHEELCHAIR FRIEND DRIVING..
== END 2025-03-23 15:40 | disposition home or self-care (01) ==
LOC: DAH 09:37
PROVIDERS: ATTEND Internal Medicine Cardiovascular Disease
DX: I42.9 Cardiomyopathy, unspecified (principal); I25.118 Atherosclerotic heart disease of native coronary artery with other forms of angina pectoris; R94.39 Abnormal result of other cardiovascular function study; I44.7 Left bundle-branch block, unspecified; I49.3 Ventricular premature depolarization; R06.09 Other forms of dyspnea; E78.5 Hyperlipidemia, unspecified; E03.9 Hypothyroidism, unspecified; E66.9 Obesity, unspecified; I12.9 Hypertensive chronic kidney disease with stage 1 through stage 4 chronic kidney disease, or unspecified chronic kidney disease; N18.30 Chronic kidney disease, stage 3 unspecified; M10.9 Gout, unspecified; Z88.8 Allergy status to other drugs, medicaments and biological substances; Z68.39 Body mass index [BMI] 39.0-39.9, adult; Z79.01 Long term (current) use of anticoagulants; Z79.899 Other long term (current) drug therapy
CPT/HCPCS: 80048 ×2; 83880 ×2; 85025; 85610; 85730; 81001; 36415 ×2; 71045; 93005; 93458; 99156; 99157; C1769; A4649; C1894; J1200; J3490 ×5; J3010; J2919; J1644 ×2; J2250; J1938; Q9967; A4215; A4657; A4335; A4222; A4221; A4663; A4216; A4606; Q9965; A4223 ×3; A4554

== ENCOUNTER 2025-08-20 11:02 | Observation (INO) | payer OTHER, MEDICARE ==
[~2025-08-20] VITALS: Ht 149.9 cm; Wt 71.8 kg
--- NOTE | 2025-08-20 11:18 | NUR ---
PATIENT IN ROOM
--- NOTE | 2025-08-20 11:19 | ERN ---
ED Note History of Present Illness Stated Complaint: CHEST PAIN Chief Complaint: Chest Pain Time Seen by MD: 11:13 Time Seen by Midlevel: 11:20 Dictation: Ms. Starks is a 75 year old female with history of CAD/stent, CHF, hypertension, Hypothyroidism, CKD, anemia, and obesity who the emergency department this morning for evaluation of chest pain. She reports intermittent chest pain radiating to her neck and bilateral shoulders onset this morning. She states that she has been having similar symptoms and has been placed on a Holter monitor yesterday at [facility]. She states that been experiencing hyperkalemia, fatigue, general weakness, pedal edema, and dyspnea on exertion which was the reason for initiating. She denies fever, chills, cough, palpitations, abdominal pain, nausea, vomiting, hematemesis, constipation, diarrhea, melena, hematochezia, dysuria, headache, dizziness, or focal weakness/paresthesia PCP: [facility] Meeting/Event Planner: [facility] Allergies: Coded Allergies: iodine (Unverified Allergy, Unknown, 05/06/18) Home Meds Active Scripts Metoprolol Tartrate (Lopressor) 25 Mg Tab, 12.5 MG PO BID, #60 TAB Prov:KRYSTAL NAVARRO 06/26/25 Isosorbide Mononitrate (Isosorbide Mononitrate ER) 30 Mg Tab.er.24h, 30 MG PO DAILY, #30 TAB Prov:VENKATA GIORDANO 05/14/25 Hydralazine HCl (Apresoline) 10 Mg Tab, 1 TAB PO TID for 30 Days, #90 TAB 0 Refills Prov:VENKATA GIORDANO 05/14/25 Reported Medications Patiromer Calcium Sorbitex (Veltassa) 8.4 Gram Powd.pack, 1 PKT PO DAILY 05/09/25 Ondansetron (Ondansetron Odt) 4 Mg Tab.rapdis, 1 TAB PO Q8H PRN for NAUSEA/VOMITING 05/09/25 Ferrous Sulfate (Ferrous Sulfate) 325 Mg (65 Mg Iron) Ectab, 1 TAB PO DAILY for 30 Days, #30 TAB 0 Refills 05/09/25 Pravastatin Sodium (Pravastatin Sodium) 40 Mg Tablet, 1 TAB PO HS 05/09/25 Ranolazine (Ranolazine ER) 500 Mg Tab.er.12h, 500 MG PO AM 05/09/25 Spironolactone (Spironolactone) 25 Mg Tablet, 1 TAB PO BID 05/09/25 Lisinopril (Lisinopril) 5 Mg Tablet, 1 TAB PO HS 05/09/25 Furosemide (Lasix 40Mg Tab) 40 Mg Tablet, 1 TAB PO DAILY for 30 Days, #30 TAB 0 Refills 03/23/25 Cholecalciferol (Vitamin D3) (Vitamin D3) 10 Mcg (400 Unit) Tablet, 10 MCG PO DAILY, TAB 03/19/25 Nitroglycerin (Nitroglycerin) 0.4 Mg Tab.subl, 1 TAB SL AD for chest pain, #25 TAB 0 Refills 1st sign of attack; may repeat every 5 mins; if pain persists after 3 in 15 min, medical attention is recommended 01/07/25 Levothyroxine Sodium (Levothyroxine Sodium) 150 Mcg Tablet, 1 TAB PO ACBKFST for 30 Days, #30 TAB 0 Refills 01/07/25 Allopurinol (Allopurinol) 100 Mg Tablet, 1 TAB PO DAILY for 30 Days, #30 TAB 0 Refills 01/07/25 Aspirin (Aspirin) 81 Mg Tab.chew, 81 MG PO DAILY, TAB.CHEW 05/06/18 Past Medical History Past Medical History: Anemia, CAD, CHF, High Cholesterol, Hypertension, Hy pothyroid, Renal Disese, Other Additional Past Medical Hx: OBESITY Surgical History: Other Surgical History Other: HEART STENT PSYCH History: no pertinent psych hx Family History: CAD, HTN History: Not Applicable RN Note Reviewed/Agreed w/PFSH: Yes Review of System Dictation REVIEW OF SYSTEMS: CONSTITUTIONAL: Patient denies fevers, chills, sweats and weight changes. EYES: Patient denies any visual symptoms. EARS, NOSE, AND THROAT: No difficulties with hearing. No symptoms of rhinitis or sore throat. CARDIOVASCULAR: Patient denies palpitations, orthopnea and paroxysmal nocturnal dyspnea. Repots intermittent chest pain radiating to the neck; onset this AM. She states that she was placed on Holter monitor at [facility] yesterday. RESPIRATORY: No dyspnea on exertion, no wheezing or cough. GI: No nausea, vomiting, diarrhea, constipation, abdominal pain, hematochezia or melena. : No urinary hesitancy or dribbling. No nocturia or urinary frequency. No abnormal urethral discharge. MUSCULOSKELETAL: No myalgias or arthralgias. NEUROLOGIC: No chronic headaches, no seizures. Patient denies numbness, tingling or weakness. PSYCHIATRIC: Patient denies problems with mood disturbance. No problems with anxiety. ENDOCRINE: No excessive urination or excessive thirst. DERMATOLOGIC: Patient denies any rashes or skin changes. Initial Vital Sign VS Vital Signs Date Time Temp Pulse Resp B/P (MAP) Pulse Ox O2 Delivery O2 Flow Rate FiO2 08/20/25 11:04 98.8 70 20 113/70 99 Room Air 08/20/25 11:18 0 21 Physical Exam Dictation Vital signs: Reviewed. Afebrile Constitutional: No acute distress. Non-toxic appearing. Head/Face: Normocephalic, atraumatic. Eyes: Periorbital areas with no swelling, redness, or edema. Lids and lashes are normal. Conjunctival injection is absent. Sclera anicteric. Pupils equal, round, reactive to light. ENT: Pinnas intact and no signs of trauma or erythema. Ear canals clear and no discharge. TMs no erythema. No nasal discharge or bleeding noted. Oropharynx with no exudate, redness, swelling, masses, exudates, or evidence of obstruction. Uvula midline. Mucous membranes moist. Neck: Trachea midline, no masses palpated, and no cervical lymphadenopathy. No swelling. Supple, full range of motion. Chest/Axilla: No tenderness, no crepitus, no paradoxical movement, no retractions. Cardiovascular: Regular rate, regular rhythm, no murmur, no gallops. Symmetric pulses. No peripheral edema. CP 5/10. BP 113/70 Respiratory: Respirations even and unlabored. Lung sounds clear; no wheezes, rales or rhonchi. Room air spo2 99%. Gastrointestinal: Inspection is normal. No distention is appreciated. Bowel sounds are normal. No mass or organomegaly . There is no tenderness. No rebound. No rigidity. No voluntary or involuntary guarding. No Adrian's sign. Neurological: Normal speech, gross motor function intact, gross sensory function intact. No focal weakness/Paresthesia. Musculoskeletal/Extremities: All extremities have full range of motion, no pain or tenderness on palpation. Symmetric pulses. Integumentary: Intact. Skin is normal color, warm and dry. Cap refill less than 3 seconds. Results (Laboratory/Radiology) Laboratory/Radiology Laboratory Tests Test 08/20/25 11:24 08/20/25 11:41 White Blood Count 7.6 K/uL (4.8-10.8) Red Blood Count 3.31 MIL/uL (4.00-5.50) L Hemoglobin 11.4 g/dL (12.0-16.0) L Hematocrit 35.3 % (36-48) L Mean Corpuscular Volume 106.6 fL (79-99) H Mean Corpuscular Hemoglobin 34.4 pg (27.0-33.0) H Mean Corpuscular Hemoglobin Concent 32.3 g/dL (32.0-36.0) Red Cell Distribution Width 12.8 % (11.0-15.5) Platelet Count 199 K/uL (130-400) Mean Platelet Volume 11.0 fL (7.5-10.5) H Immature Granulocyte % (Auto) 0.8 % (0-1) Neutrophils (%) (Auto) 71.1 % (40.0-77.0) Lymphocytes (%) (Auto) 14.4 % (21.0-51.0) L Monocytes (%) (Auto) 8.6 % (3.0-13.0) Eosinophils (%) (Auto) 4.6 % (0.0-8.0) Basophils (%) (Auto) 0.5 % (0.0-5.0) Neutrophils # (Auto) 5.4 K/uL (1.8-7.7) Lymphocytes # (Auto) 1.1 K/uL (1.0-4.8) Monocytes # (Auto) 0.7 K/uL (0.1-1.0) Eosinophils # (Auto) 0.35 K/uL (0.00-0.70) Basophils # (Auto) 0.04 K/uL (0.00-0.20) Absolute Immature Granulocyte (auto 0.06 K/uL (0-1) Nucleated Red Blood Cells 0.0 % (0.0-0.19) Red Blood Cell Morphology See comments Sodium Level 140 mmol/L (136-145) Potassium Level 4.5 mmol/L (3.5-5.1) Chloride Level 102 mmol/L (101-111) Carbon Dioxide Level 29 mmol/L (21-32) Blood Urea Nitrogen 81 mg/dL (7-18) *H Creatinine 3.3 mg/dL (0.5-1.0) H Glomerular Filtration Rate Calc 14 mL/min (>90) Random Glucose 134 mg/dL (70-105) H Total Calcium 9.3 mg/dL (8.5-10.1) Troponin I High Sensitivity 20 ng/L (4-50) B-Type Natriuretic Peptide 69 pg/mL (0-100) Urine Color YELLOW (YELLOW) Urine Appearance CLOUDY (CLEAR) H Urine pH 5.0 (5.0-8.0) Urine Specific [place] 1.014 (1.001-1.031) Urine Protein NEGATIVE mg/dL (NEGATIVE) Urine Glucose (UA) NEGATIVE mg/dL (NEGATIVE) Urine Ketones NEGATIVE mg/dL (NEGATIVE) Urine Occult Blood NEGATIVE (NEGATIVE) Urine Nitrate NEGATIVE (NEGATIVE) Urine Bilirubin NEGATIVE mg/dL (NEGATIVE) Urine Urobilinogen 0.2 mg/dL (0.2-1.0) Urine Leukocyte Esterase 25 Neisha/uL (NEGATIVE) H Urine RBC 0-1 /HPF (0-1) Urine WBC 6-10 /HPF (0-1) H Urine Squamous Epithelial Cells MANY /HPF (0-2) Urine Bacteria RARE /HPF (None Seen) Urine Hyaline Casts 2-5 /LPF (0-1 /LPF) H Labs Reviewed?: Yes EKG Comment: EKG Interpretation: Time Reviewed: 1048 Ventricular rate: 71 bpm RI Interval: 183 ms QRS duration: [address] segment elevation or depression. Clinical impression: Sinus rhythm with left bundle-branch block; PVCs EKG Reviewed and interpreted by Dr. Marvin Akhtar X-RAY Comment: PATIENT: ANGELA STARKS MR#: [id number] : 1950 SEX: F AGE: 75 LOCATION: [facility] ORDER 14 STATUS: REG ER REPORT#: [id number] SERVICE 111 REASON: CHEST PAIN ORDERING PHYSICIAN: HEMANTH AKHTAR MD PROCEDURE: CXR1VW - CHEST 1VW EXAM: CR Chest, 1 View. CLINICAL HISTORY: CHEST PAIN COMPARISON: None provided. FINDINGS: Electronic device overlying the mid left lung. LUNGS: There is no mass, infiltrate, or acute pulmonary abnormality. PLEURAL SPACES: No pleural effusion or pneumothorax. MEDIASTINUM: Cardiac size and mediastinal contours within normal limits. BONES: No aggressive appearing osseous lesion seen. IMPRESSION: No acute cardiopulmonary pathology is evident. /[place] DICTATED BY: MARCO COX Jr., MD DATE: 08/20/25 135 ELECTRONICALLY SIGNED BY: MARCO COX Jr., MD DATE: 08/20/25 135 ED Course ED Course Orders Procedure Category Date Status Time Chest 1vw RAD 08/20/25 Resulted 11:13 12 Lead Ekg Tracing- EKG 08/20/25 Complete Technical 11:13 Iv Insertion CPOE 08/20/25 Transmitted 11:13 Cbc With Differential LAB 08/20/25 Complete 11:13 Troponin I High LAB 08/20/25 Complete Sensitivity 11:13 Urinalysis Profile LAB 08/20/25 Complete 11:13 Basic Metabolic Panel LAB 08/20/25 Complete 11:13 Aspirin 81mg Chew Tab PHA 08/20/25 Complete (Aspirin 81mg Chew 11:30 B-Type Natriuretic LAB 08/20/25 Complete Peptide 11:15 Urinalysis Profile LAB 08/20/25 Logged 11:15 Culture Urine ABISAI 08/20/25 In Process 12:38 Ceftriaxone 1g Vial PHA 08/20/25 Complete (Rocephine 1g Inj) 13:30 Current Medications Medications (Trade) Dose Ordered Sig/Melisa Route PRN Reason Start Time Stop Time Status Last Admin Dose Admin Aspirin (Aspirin 81mg Chew Tab) 324 mg ONCE ONCE PO 08/20/25 11:30 08/20/25 11:31 DC Ceftriaxone Sodium (ROCEphine 1G INJ) 1 gm ONCE ONCE IVPB 08/20/25 13:30 08/20/25 13:31 DC 08/20/25 13:46 Vital Signs Date Time Temp Pulse Resp B/P (MAP) Pulse Ox O2 Delivery O2 Flow Rate FiO2 08/20/25 11:18 98.8 70 20 113/70 99 Room Air* 0 21 08/20/25 11:04 98.8 70 20 113/70 99 Room Air Uneventful ED course. She has been this pain free during the entirety of her ED stay. Vital signs are stable; afebrile and normotensive with room air SpO2 99%. Twelve lead EKG reflects a sinus rhythm with left bundle-branch block and PVC; no ST elevation. Chest x-ray is unremarkable. Laboratory findings as noted below. H and H are 11.4/35.3 and glucose 134. BUN/CR with marked elevation from previous 81/3.3. BNP and troponin are not elevated. UA cloudy/yellow; + leukocyte esterase, bacteria, and UWBC 6-10. UCX pending she received doses aspirin and Rocephin. Findings were discussed with [facility] Jakob Estrada who accepts patient for admission to group. HEART Score Response (Comments) Value History: Moderate suspicion (+1) 1 EKG: Repolarization changes 1 Age: > 65yrs (+2) 2 Risk Factors: 3+ risk factors (+2) 2 Initial Troponin: Normal limit (0) 0 HEART Score Risk: Mod Risk for MACE (4-6) Total 6 Medical Decision Making MDM MDM: Differential diagnosis: ACS, electrolyte derangement, UTI, muscle strain Rationale: Tests considered and ordered secondary to shared decision making include: labs, ECG and radiology Previous outside records reviewed: Old ER visits. Risk of complication and/or morbidity or mortality of patient management: None Medications-Per medication reconciliation Need for hospitalization: Patient does meet criteria for hospitalization. Need for emergency major/minor surgery: No There are no social concerns with this patient. Prescription drug management Prescriptions will include symptomatic care Patient's prior external medical records from other ER visits were reviewed by me as indicated. Prior testing and results from previous visits were reviewed. Prior tests were taken into account with medical decision making and resource utilization, independent historian/historians were used to obtain complete medical history. I independently interpreted the test that were performed, results were reviewed by me and considered findings on radiology if ordered. Medical management and examination interpretation discussions were had by me with other qualified healthcare professionals as indicated for the patient's care. DX & DISP Disposition: Inpatient Departure Impression: Primary Impression: Acute on chronic kidney failure Additional Impressions: Chest pain, moderate coronary artery risk, UTI (urinary tract infection) Condition: Stable Assign Patient to: Dr. Arnold Estrada Referrals: YOLANDA LUNDBERG MD (PCP) MCKINLEY HAMMOND Aug 20, 2025 11:19
[2025-08-20] MEDS: ASPIRIN 81MG CHEW TAB PO ONE (11:30)
[2025-08-20 11:35] LABS: IMMATURE GRANULOCYTE ABSOLUTE 0.06 K/uL (0-1); NUCLEATED RED BLOOD CELLS 0.0 % (0.0-0.19); PLATELET COUNT (AUTO) 199 K/uL (130-400); RED BLOOD CELL COUNT(AUTO) 3.31 MIL/uL (4.00-5.50); RED CELL DISTRIBUTION WIDTH 12.8 % (11.0-15.5); WHITE BLOOD COUNT (AUTO) 7.6 K/uL (4.8-10.8)
[2025-08-20 11:45] LABS: CREATININE 3.3 mg/dL (0.5-1.0); GLOMERULAR FILTR. RATE CALC 14.0 mL/min (>90); GLUCOSE,RANDOM 134.0 mg/dL (70-105); SODIUM SERUM 140.0 mmol/L (136-145)
[2025-08-20 11:47] LABS: UREA NITROGEN, BLOOD 81.0 mg/dL (7-18)
[2025-08-20 12:21] LABS: APPEARANCE,URINE CLOUDY (CLEAR); GLUCOSE, URINE (UA) NEGATIVE (NEGATIVE); LEUKOCYTE ESTERASE ,URINE 25 Leu/uL (NEGATIVE); NITRATE,URINE NEGATIVE (NEGATIVE); OCCULT BLOOD,URINE NEGATIVE (NEGATIVE)
[2025-08-20 12:31] LABS: ADD UA MICROSCOPIC YES
[2025-08-20 12:33] LABS: SQUAMOUS EPITHELIAL CELL,UR MANY /HPF (0-2)
--- NOTE | 2025-08-20 12:56 | HMCIMG ---
EXAM: CR Chest, 1 View. CLINICAL HISTORY: CHEST PAIN COMPARISON: None provided. FINDINGS: Electronic device overlying the mid left lung. LUNGS: There is no mass, infiltrate, or acute pulmonary abnormality. PLEURAL SPACES: No pleural effusion or pneumothorax. MEDIASTINUM: Cardiac size and mediastinal contours within normal limits. BONES: No aggressive appearing osseous lesion seen. IMPRESSION: No acute cardiopulmonary pathology is evident. /[place]
--- NOTE | 2025-08-20 13:23 | EKG ---
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
--- NOTE | 2025-08-20 14:42 | CONS ---
[facility] CARDIOLOGY CONSULTATION NOTE Date Patient Seen: Aug 20, 2025 Time of Visit: 14:27 Reason for Consultation: [Chest pain ] History of Present Illness: [75-year-old female that follows up in Cardiology Clinic with , with past medical history significant for hypertension, hyperlipidemia, non-ischemic cardiomyopathy by coronary arteriogram on 03/23/2025 revealed dilated, minimal luminal irregularity with no significant stenotic lesions, elevated LVDP and a LBBB, 2D Echo on 06/23/2025, LVEF 55%, no wall motion abnormalities, no hemodynamically significant valvular abnormalities, hypothyroidism, morbid obesity, chronic kidney disease stage 4, gout, atrial flutter status post ablation on 06/26/2025 presented to the emergency department endorsing chest pa in that radiates to her neck and bilateral shoulders per patient chest pain exacerbated with exertion. Presenting ECG, sinus rhythm, left bundle branch block, trigeminy. Troponin 20, creatinine 3.3, BNP 69, chest x-ray was unremarkable. Of note, the patient was recently seen in the Cardiology Clinic (08/04/2025) at that time patient was endorsing palpitations, ECG sinus rhythm w ith PVCs, a three day event monitor was placed on 08/19/2025. The patient was assessed at her bedside, currently denying any chest pain, palpitations, dyspnea or any other anginal equivalents. Patient is hemodynamically stable blood pressure 113/70mmhg with a heart rate of 70 beats per minute. Cardiology was consulted for ACS rule out Past Medical History: [Refer to chart ] Past Surgical History: [Refer to HPI ] Family History: [Refer to HPI ] Social History: [Refer to HPI ] Habits: [Never] smoker. [Denies] alcohol consumption. [Denies] illicit drug use Review of Systems: A review of12 point systems was negative set per HPI Physical Examination: GENERAL: [No acute distress.] HEAD: [Normal with no signs of head trauma.] EYES: [PERRLA, EOMI, conjunctiva and sclera normal.] ENT: [Hearing grossly intact, normal oropharynx.] NECK: [Supple without JVD. There is no tenderness, lymphadenopathy, or masses. No thyromegaly. Normal carotid upstrokes without bruits.] LUNGS: [Clear breath sounds bilaterally.No wheezes, or rhonchi.] HEART: [Normal rate and rhythm. Normal S1 and S2 without murmurs, gallop or rub.] VASC: [Peripheral pulses +2 bilaterally.] ABD: [Bowel sounds normal, soft, nontender, no masses, no organomegaly. No audible bruits.] : [Not examined] LYMPH: [No lymphadenopathy noted.] EXT: [No clubbing, cyanosis or edema.] SKIN: [No rashes or lesions noted.] NEURO: [Awake, alert, and oriented x3. No focal sensory or strength deficits noted.] Vital Signs (last 8hr) Date Time Temp Pulse Resp B/P (MAP) Pulse Ox O2 Delivery O2 Flow Rate FiO2 08/20/25 11:18 98.8 70 20 113/70 99 Room Air* 0 21 08/20/25 11:04 98.8 70 20 113/70 99 Room Air Laboratory: [ ] Hematology Labs: Test 08/20/25 11:24 Range/Units White Blood Count 7.6 4.8-10.8 K/uL Red Blood Count 3.31 L 4.00-5.50 MIL/uL Hemoglobin 11.4 L 12.0-16.0 g/dL Hematocrit 35.3 L 36-48 % Mean Corpuscular Volume 106.6 H 79-99 fL Mean Corpuscular Hemoglobin 34.4 H 27.0-33.0 pg Mean Corpuscular Hemoglobin Concent 32.3 32.0-36.0 g/dL Red Cell Distribution Width 12.8 11.0-15.5 % Platelet Count 199 130-400 K/uL Mean Platelet Volume 11.0 H 7.5-10.5 fL Immature Granulocyte % (Auto) 0.8 0-1 % Neutrophils (%) (Auto) 71.1 40.0-77.0 % Lymphocytes (%) (Auto) 14.4 L 21.0-51.0 % Monocytes (%) (Auto) 8.6 3.0-13.0 % Eosinophils (%) (Auto) 4.6 0.0-8.0 % Basophils (%) (Auto) 0.5 0.0-5.0 % Neutrophils # (Auto) 5.4 1.8-7.7 K/uL Lymphocytes # (Auto) 1.1 1.0-4.8 K/uL Monocytes # (Auto) 0.7 0.1-1.0 K/uL Eosinophils # (Auto) 0.35 0.00-0.70 K/uL Basophils # (Auto) 0.04 0.00-0.20 K/uL Absolute Immature Granulocyte (auto 0.06 0-1 K/uL Nucleated Red Blood Cells 0.0 0.0-0.19 % Red Blood Cell Morphology See comments Chemistry Labs: Test 08/20/25 11:24 Range/Units Sodium Level 140 136-145 mmol/L Potassium Level 4.5 3.5-5.1 mmol/L Chloride Level 102 101-111 mmol/L Carbon Dioxide Level 29 21-32 mmol/L Blood Urea Nitrogen 81 *H 7-18 mg/dL Creatinine 3.3 H 0.5-1.0 mg/dL Glomerular Filtration Rate Calc 14 >90 mL/min Random Glucose 134 H 70-105 mg/dL Total Calcium 9.3 8.5-10.1 mg/dL Troponin I High Sensitivity 20 4-50 ng/L B-Type Natriuretic Peptide 69 0-100 pg/mL Diagnostics / Radiology: [Copy/Paste Echos/Imaging Report here] Assessment: [Hypertension Hyperlipidemia Nonischemic cardiomyopathy Hypothyroidism ROBBY on CKD stage 4 Atrial flutter status post ablation (06/26/2025) ] Plan: [ # HFpEF NICM- LVEF >55%- NYHA I Compensated and euvolemic on exam Coronary arteriogram on 03/23/2025 revealed dilated, non-ischemic cardiomyopathy, minimal luminal irregularity with no significant stenotic lesions, elevated LVDP and a LBBB 2D Echo on 06/23/2025, LVEF 55%, no wall motion abnormalities, no hemodynamically significant valvular abnormalities Strict I's and O's and daily weights BNP 69, creatinine 3.3 Optimize GDMT: Toprol-XL 25 mg daily Avoid the use of Ivan/ARB/Aldactone due to ROBBY on CKD. #atrial flutter Patient is currently not on telemetry Status post ablation (06/26/2025) Presenting ECG sinus rhythm with trigeminy Patient is currently wearing a three day event monitor that was placed on 08/20/2025 Keep on telemetry, monitor/replace electrolytes as needed, ( Mg >2 , K > 4 ) Continue Toprol-XL 25 mg daily #chest pain Fistula presents to the emergency department (08/20/2025) Endorsing extension to her neck and shoulders Presenting ECG sinus rhythm with no acute ischemia, trigeminy Patent coronaries on angiogram on 03/23/2025. Troponin 20 Patient received [id number] mg p.o. x1 on admission Patient currently denies any further chest pain, palpitations, dyspnea or any other anginal equivalents At this time there is low suspicion for true ACS We will order a repeat troponin ] Thank you for this consult cardiology will continue to follow along Shaheed sanchez MD ATTESTATION BY PHYSICIAN I have seen and examined the patient, reviewed the above documentation, participated in medical decision making, made necessary modifications, and agree with the treatment plan as documented by my mid-level provider above. MD LUPILLO Cassidy JAMES R MD Aug 20, 2025 14:42
--- NOTE | 2025-08-20 15:27 | NUR ---
DR WESLEY AT BEDSIDE
[2025-08-20] MEDS ORDERED: MAG/ALUM/SIMETH 30 ML UDCUP PO PRN (15:30)
[2025-08-20] MEDS ORDERED: LOPERAMIDE HCL 2 MG CAP PO PRN (15:30)
[2025-08-20] MEDS ORDERED: BENZOCAINE/MENTH/CETYLPYRD CL 1 EACH LOZENGE MM PRN (15:30)
[2025-08-20] MEDS ORDERED: LACTULOSE 20 GM/30 ML UDCUP PO PRN (15:30)
[2025-08-20] MEDS ORDERED: ARTIFICAL TEARS SOL 15 ML OP PRN (15:30)
[2025-08-20] MEDS ORDERED: guaiFENesin-DM 200/20MG 10ML PO PRN (15:30)
[2025-08-20] MEDS ORDERED: NITROGLYCERIN 0.4 MG SL TAB SL PRN (15:30)
[2025-08-20] MEDS ORDERED: LIDOCAINE HCL 2% VISCOUS 30 ML, MAG/ALUM/SIMETH 30ML 30 ML, DICYCLOMINE HCL 20 MG PO PRN (15:30)
--- NOTE | 2025-08-20 21:06 | HP ---
[facility] HISTORY & PHYSICAL Date Patient Seen: Aug 20, 2025 Time of Visit: 21:05 Supervising Physician: Dr. Blair Estrada Primary Care Physician: Dr Montaño Outpatient Specialists: [ ] Inpatient Consults: Dr Glover PROBLEM LIST: Acute chest pain, likely anginal pain, POA Hypertension, POA Hyperlipidemia, POA Acute on chronic kidney disease, POA Chronic macrocytic anemia, POA Hypothyroidism, POA History of CAD s/p multiple stent PLAN: Admit to medical-surgical floor VS per unit protocol Continue cardiac monitoring Stat EKG and troponin level of with chest pain Heart healthy diet Keep SBP less than 160 P.r.n. hydralazine labetalol Electrolyte replacement per unit protocol Avoid nephrotoxic agents Renally dose all medications CBC, CMP, magnesium level daily HPI: 75-year-old female with past medical history of hypertension, hyperlipidemia, CAD s/p multiple stents, hypothyroidism, who presented to ED via private vehicle with complaint of intermittent substernal chest pain and found to have possible angina pectoris. Patient was seen and examined in ED with no relatives present at bedside. Her chest pain started following use of bathroom to urinate. Mostly at the center of her chest. According to her she has been having on and off chest pain for the past several weeks, usually relieved with rest. In ED chest x-ray was done showed no acute intrapulmonary process, her EKG and troponin level were unremarkable, CBC showed chronic anemia, her chemistry consistent with chronic kidney disease. At present patient is currently hemodynamically stable, on room air with appropriate oxygen saturation, denies any chest pain, shortness of breath, fever, cough, abdominal pain, or diarrhea. Patient denies any smoking, alcohol intake, or illicit drug use. PAST MEDICAL HX: see above PAST SURGICAL HX: noncontributory SOCIAL HISTORY: No tobacco, ETOH, or illicit drug use Coded Allergies: iodine (Unverified Allergy, Unknown, 05/06/18) REVIEW OF SYSTEMS: 12 point ROS reviewed with patient. Pertinent positives mentioned above. Otherwise negative. PHYSICAL EXAM: GENERAL: alert, weak, awake oriented x 3 HEENT: EOMI, Sclera non icteric, moist mucosa NECK: Supple, no JVD, trachea midline LUNGS: Clear breath sounds bilaterally. No wheezes HEART: Regular rate and rhythm. Normal S1 and S2, without murmurs ABD: Abdomen soft, nontender. Bowel sounds present EXT: No clubbing cyanosis or edema NEURO: Alert and oriented to person, follows commands Vital Signs (last 8hr) Date Time Temp Pulse Resp B/P (MAP) Pulse Ox O2 Delivery O2 Flow Rate FiO2 08/20/25 17:19 98.6 74 15 131/71 100 Room Air* 0 21 LABS: Hematology Labs: Test 08/20/25 11:24 Range/Units White Blood Count 7.6 4.8-10.8 K/uL Red Blood Count 3.31 L 4.00-5.50 MIL/uL Hemoglobin 11.4 L 12.0-16.0 g/dL Hematocrit 35.3 L 36-48 % Mean Corpuscular Volume 106.6 H 79-99 fL Mean Corpuscular Hemoglobin 34.4 H 27.0-33.0 pg Mean Corpuscular Hemoglobin Concent 32.3 32.0-36.0 g/dL Red Cell Distribution Width 12.8 11.0-15.5 % Platelet Count 199 130-400 K/uL Mean Platelet Volume 11.0 H 7.5-10.5 fL Immature Granulocyte % (Auto) 0.8 0-1 % Neutrophils (%) (Auto) 71.1 40.0-77.0 % Lymphocytes (%) (Auto) 14.4 L 21.0-51.0 % Monocytes (%) (Auto) 8.6 3.0-13.0 % Eosinophils (%) (Auto) 4.6 0.0-8.0 % Basophils (%) (Auto) 0.5 0.0-5.0 % Neutrophils # (Auto) 5.4 1.8-7.7 K/uL Lymphocytes # (Auto) 1.1 1.0-4.8 K/uL Monocytes # (Auto) 0.7 0.1-1.0 K/uL Eosinophils # (Auto) 0.35 0.00-0.70 K/uL Basophils # (Auto) 0.04 0.00-0.20 K/uL Absolute Immature Granulocyte (auto 0.06 0-1 K/uL Nucleated Red Blood Cells 0.0 0.0-0.19 % Red Blood Cell Morphology See comments Chemistry Labs: Test 08/20/25 17:14 08/20/25 15:35 08/20/25 11:24 Range/Units Whole Blood Glucose 71 70-110 MG/DL Troponin I High Sensitivity 25 4-50 ng/L Sodium Level 140 136-145 mmol/L Potassium Level 4.5 3.5-5.1 mmol/L Chloride Level 102 101-111 mmol/L Carbon Dioxide Level 29 21-32 mmol/L Blood Urea Nitrogen 81 *H 7-18 mg/dL Creatinine 3.3 H 0.5-1.0 mg/dL Glomerular Filtration Rate Calc 14 >90 mL/min Random Glucose 134 H 70-105 mg/dL Total Calcium 9.3 8.5-10.1 mg/dL B-Type Natriuretic Peptide 69 0-100 pg/mL DIAGNOSTICS / RADIOLOGY RESULTS: EXAM: CR Chest, 1 View. CLINICAL HISTORY: CHEST PAIN COMPARISON: None provided. FINDINGS: Electronic device overlying the mid left lung. LUNGS: There is no mass, infiltrate, or acute pulmonary abnormality. PLEURAL SPACES: No pleural effusion or pneumothorax. MEDIASTINUM: Cardiac size and mediastinal contours within normal limits. BONES: No aggressive appearing osseous lesion seen. IMPRESSION: No acute cardiopulmonary pathology is evident. PLAN NEURO: Minimize central acting medications as possible. Maintain fall precautions, adequate lighting during the day PULMONARY: Supplemental 02 as needed. Maintain aspiration precautions at all times CARDIOVASCULAR: Follow hemodynamics. Vital signs per facility protocol GI & NUTRITION: Continue with nutritional support. Continue stool softeners and laxatives as needed. KIDNEYS & ELECTROLYTES: Strict monitoring of intake, output and overall fluid balance. Avoid nephrotoxic medications to the extent possible. Medications to be dosed according to renal function. Monitor electrolytes and replace as needed ENDOCRINE: Maintain blood glucose between 100-180 at all times. Hypoglycemia protocol in place INFECTIOUS DISEASE: Trend temperature, WBC and procalcitonin level Follow cultures, deescalate antibiotics as soon as possible. Panculture if new onset fever ONCOLOGY/HEMATOLOGY/COAGULATION: Monitor for s/s of bleeding Monitor hemoglobin, coagulation studies as needed SKIN: Pressure ulcer prevention per facility protocol Specialty mattress ORTHO/REHAB: Continue PT/OT Prophylaxis: Continue GI and DVT prophylaxis Code Status: Full Resuscitation Disposition: TBD Supervising physician: ILA Calderon AGACN Aug 20, 2025 21:06
--- NOTE | 2025-08-20 21:25 | NUR ---
ILA RADIO STATION OPERATOR AT BEDSIDE.
[2025-08-20] MEDS: FAMOTIDINE 20MG TAB PO SCH (21:32)
[2025-08-20 21:58] VITALS: O2SAT 97
--- NOTE | 2025-08-20 21:58 | NUR ---
PATIENT REFUSAL PATIENT ASKED IF SHE WANTED TO CHANGE INTO GOWN. PATIENT REFUSED AND STATED THAT SHE WANTED TO STAY IN HER CLOTHES. ADDITIONALLY, PATIENT REFUSED TO WEARING NON-SLID SOCKS. PATIENT EDUCATED ON BENEFITS OF USING NON-SLID SOCKS. PATIENT STILL REFUSED AND IS WEARING PERSONAL SOCKS.
[2025-08-20 23:59] VITALS: BP 123/57; PULSE 80; RESP 18; TEMP 97.4
[2025-08-21 04:00] VITALS: BP 103/65; PULSE 77; RESP 18; TEMP 98
[2025-08-21 08:00] VITALS: BP 133/68; PULSE 97; RESP 17; TEMP 98.1; O2SAT 97
[2025-08-21] MEDS: ASPIRIN 81 MG EC TAB PO SCH (09:03)
[2025-08-21 09:58] LABS: NUCLEATED RED BLOOD CELLS 0.0 % (0.0-0.19); PLATELET COUNT (AUTO) 188.0 K/uL (130-400); RED BLOOD CELL COUNT(AUTO) 3.24 MIL/uL (4.00-5.50); RED CELL DISTRIBUTION WIDTH 12.9 % (11.0-15.5); WHITE BLOOD COUNT (AUTO) 7.2 K/uL (4.8-10.8)
[2025-08-21 10:16] LABS: ASPARTATE AMINOTRANSFERASE 14.0 U/L (10-37); CREATININE 2.9 mg/dL (0.5-1.0); GLOMERULAR FILTR. RATE CALC 16.0 mL/min (>90); GLUCOSE,RANDOM 157.0 mg/dL (70-105); SODIUM SERUM 143.0 mmol/L (136-145); TOTAL PROTEIN, SERUM 6.4 g/dL (6.0-8.3); UREA NITROGEN, BLOOD 74.0 mg/dL (7-18)
[2025-08-21 12:00] VITALS: BP 120/75; PULSE 88; RESP 18; TEMP 98.5
--- NOTE | 2025-08-21 12:10 | NUR ---
DCP:HOME Pt currently lives alone in her home. Pt has a cane and wheelchair at home that she uses to ambulate. Pt denies any home health or provider services. Pt states that she can complete ADLs independently. PCP is Dr. Tamar Acosta and uses [facility] for any RX needs. At [place] pt will want to go home and family can assist with transportation.
--- NOTE | 2025-08-21 13:09 | PN ---
[facility] PROGRESS NOTE Date Patient Seen: Aug 21, 2025 Time of Visit: 13:09 Supervising Physician: Dr. Arnold Estrada Primary Care Physician: Dr. Jesus Montaño Outpatient Specialists: [ ] Inpatient Consults: Dr. Glover PROBLEM LIST: Acute chest pain, likely anginal pain, POA Acute cystitis, POA Acute on chronic kidney disease IV Hypertension Hyperlipidemia Chronic macrocytic anemia Hypothyroidism History of CAD s/p multiple stent Obesity, BMI 33 INTERVAL HISTORY: Patient assessed at bedside. AAOX3. Currently on room air. Denies any chest pain, abdominal pain, nausea or vomiting. Pending final urine culture results. No family at bedside. Cardiology has adjusted cardiac medications PLAN: Follow cardiology recommendations Follow urine cultures, follow IV Rocephin VS per unit protocol Continue cardiac monitoring Stat EKG and troponin level of with chest pain Heart healthy diet Keep SBP less than 160 Electrolyte replacement per unit protocol Avoid nephrotoxic agents Renally dose all medications CBC, CMP, magnesium level daily REVIEW OF SYSTEMS: 12 point ROS reviewed with patient. Pertinent positives mentioned above. Otherwise negative. PHYSICAL EXAM: GENERAL: alert, weak, awake oriented x 3 HEENT: EOMI, Sclera non icteric, moist mucosa NECK: Supple, no JVD, trachea midline LUNGS: Clear breath sounds bilaterally. No wheezes HEART: Regular rate and rhythm. Normal S1 and S2, without murmurs ABD: Abdomen soft, nontender. Bowel sounds present EXT: No clubbing cyanosis or edema NEURO: Alert and oriented to person, follows commands Vital Signs (last 8hr) Date Time Temp Pulse Resp B/P (MAP) Pulse Ox O2 Delivery O2 Flow Rate FiO2 08/21/25 12:00 98.4 88 18 120/75 96 Room Air 08/21/25 08:00 98.1 97 17 133/68 97 Room Air 08/21/25 08:00 97 Room Air* 0 21 LABS: Hematology Labs: Test 08/21/25 09:51 08/20/25 11:24 Range/Units White Blood Count 7.2 4.8-10.8 K/uL Red Blood Count 3.24 L 4.00-5.50 MIL/uL Hemoglobin 11.0 L 12.0-16.0 g/dL Hematocrit 34.3 L 36-48 % Mean Corpuscular Volume 105.9 H 79-99 fL Mean Corpuscular Hemoglobin 34.0 H 27.0-33.0 pg Mean Corpuscular Hemoglobin Concent 32.1 32.0-36.0 g/dL Red Cell Distribution Width 12.9 11.0-15.5 % Platelet Count 188 130-400 K/uL Mean Platelet Volume 11.1 H 7.5-10.5 fL Nucleated Red Blood Cells 0.0 0.0-0.19 % Immature Granulocyte % (Auto) 0.8 0-1 % Neutrophils (%) (Auto) 71.1 40.0-77.0 % Lymphocytes (%) (Auto) 14.4 L 21.0-51.0 % Monocytes (%) (Auto) 8.6 3.0-13.0 % Eosinophils (%) (Auto) 4.6 0.0-8.0 % Basophils (%) (Auto) 0.5 0.0-5.0 % Neutrophils # (Auto) 5.4 1.8-7.7 K/uL Lymphocytes # (Auto) 1.1 1.0-4.8 K/uL Monocytes # (Auto) 0.7 0.1-1.0 K/uL Eosinophils # (Auto) 0.35 0.00-0.70 K/uL Basophils # (Auto) 0.04 0.00-0.20 K/uL Absolute Immature Granulocyte (auto 0.06 0-1 K/uL Red Blood Cell Morphology See comments Chemistry Labs: Test 08/21/25 11:32 08/21/25 09:51 08/20/25 11:24 Range/Units Whole Blood Glucose 122 #H 70-110 MG/DL Sodium Level 143 136-145 mmol/L Potassium Level 4.3 3.5-5.1 mmol/L Chloride Level 107 101-111 mmol/L Carbon Dioxide Level 26 21-32 mmol/L Blood Urea Nitrogen 74 H 7-18 mg/dL Creatinine 2.9 H 0.5-1.0 mg/dL Glomerular Filtration Rate Calc 16 >90 mL/min Random Glucose 157 H 70-105 mg/dL Total Calcium 9.0 8.5-10.1 mg/dL Total Bilirubin 0.6 0.2-1.0 mg/dL Aspartate Amino Transf (AST/SGOT) 14 10-37 U/L Alanine Aminotransferase (ALT/SGPT) 15 12-78 U/L Alkaline Phosphatase 87 50-136 U/L Troponin I High Sensitivity 22 4-50 ng/L Total Protein 6.4 6.0-8.3 g/dL Albumin 3.3 L 3.5-5.0 g/dL B-Type Natriuretic Peptide 69 0-100 pg/mL DIAGNOSTICS / RADIOLOGY RESULTS: [ ] PLAN NEURO: Minimize central acting medications as possible. Maintain fall precautions, adequate lighting during the day PULMONARY: Supplemental 02 as needed. Maintain aspiration precautions at all times CARDIOVASCULAR: Follow hemodynamics. Vital signs per facility protocol GI & NUTRITION: Continue with nutritional support. Continue stool softeners and laxatives as needed. KIDNEYS & ELECTROLYTES: Strict monitoring of intake, output and overall fluid balance. Avoid nephrotoxic medications to the extent possible. Medications to be dosed according to renal function. Monitor electrolytes and replace as needed ENDOCRINE: Maintain blood glucose between 100-180 at all times. Hypoglycemia protocol in place INFECTIOUS DISEASE: Trend temperature, WBC and procalcitonin level Follow cultures, deescalate antibiotics as soon as possible. Panculture if new onset fever ONCOLOGY/HEMATOLOGY/COAGULATION: Monitor for s/s of bleeding Monitor hemoglobin, coagulation studies as needed SKIN: Pressure ulcer prevention per facility protocol Specialty mattress ORTHO/REHAB: Continue PT/OT Prophylaxis: Continue GI and DVT prophylaxis Code Status: Full Resuscitation Disposition: AYE PANDEY Aug 21, 2025 13:09
--- NOTE | 2025-08-21 15:45 | PN ---
PROBLEM LIST - Recurrent angina - Acute on Chronic Kidney Disease - Dilated, Nonischemic cardiomyopathy, minimial luminal irregularity with no significant stenotic lesions, elevated LVDP and LBBB - LVEF 55% with no wall motion abnormalities on 2D Echo 06/23/25 - Atrial flutter s/p ablation 06/26/25 - Hypertension - Hyperlipidemia - Gout - Chronic macrocytic anemia Patient is a pleasant 75-year-old female who was hospitalized predominantly for evaluation of chest pain that radiated to her neck and bilateral shoulders and was exacerbated by exertion. She reports having only one brief episode of chest pain yesterday morning that lasted a few seconds. She denies any associated diaphoresis, nausea, vomiting, syncope, orthopnea, PND, or lower-extremity swelling. Her presenting EKG showed sinus rhythm with left bundle branch block and trigeminy. She was recently seen at [facility] in July, at which time she endorsed palpitations; her EKG then showed sinus rhythm with PVCs, and a 3-day monitor was placed on 08/19/25. Patient is resting comfortably in bed in no acute distress. She currently denies chest pain, shortness of breath, dizziness, palpitations, diaphoresis, nausea, or any other anginal equivalent. Vital signs at this time show she is afebrile, blood pressure in the 120s systolic, heart rate 88 beats per minute, respiratory rate 18, and oxygen saturation 96% on room air. On physical exam, she has a normal rate and rhythm with normal S1 and S2 without murmurs or gallops. Breath sounds are clear bilaterally with no wheezes or rhonchi. Pedal pulses are 2+ bilaterally. No clubbing, cyanosis, or pedal edema is noted. Lab studies this morning show a white blood cell count of 7.2, hemoglobin 11, hematocrit 34.3, and platelets 188. Her chemistries include sodium 143, potassium 4.3, bicarbonate 26, BUN 74, creatinine 2.9 with a GFR of 16, random glucose 157, albumin 3.3, and troponins 22. The patient is currently maintained on aspirin, Rocephin, heparin, insulin sliding scale, famotidine, Tylenol, and other PRN medications. We recommend continuing current management with aspirin, and we will add Plavix given the diastasis of her right coronary artery. We will also start ranolazine 500 mg twice daily for 2 weeks, with an increase to 1000 mg twice daily thereafter if she tolerates it. The patient is clinically stable and is cleared from a cardiology standpoint. She may follow up in the clinic after discharge for event monitor review. Vitals/Labs Vital Signs Date Time Temp Pulse Resp B/P (MAP) Pulse Ox O2 Delivery O2 Flow Rate FiO2 08/21/25 12:00 98.4 88 18 120/75 96 Room Air 08/21/25 08:00 0 21 Laboratory Tests 08/21/25 09:51 Medications Current Medications Aspirin 324 mg ONCE ONCE PO; Start 08/20/25 at 11:30; Stop 08/20/25 at 11:31; Status DC Ceftriaxone Sodium 1 gm ONCE ONCE IVPB Last administered on 08/20/25at 13:46; Start 08/20/25 at 13:30; Stop 08/20/25 at 13:31; Status DC Famotidine 20 mg Q48H PO Last administered on 08/20/25at 21:32; Start 08/20/25 at 21:00; Stop 09/19/25 at 20:59 Acetaminophen 650 mg Q6H PRN PO; Start 08/20/25 at 15:30; Stop 09/19/25 at 15:29 Acetaminophen 650 mg Q4H PRN PO; Start 08/20/25 at 15:30; Stop 09/19/25 at 15:29 Ondansetron HCl 4 mg Q6H PRN IV; Start 08/20/25 at 15:30; Stop 09/19/25 at 15:29 Al Hydroxide/Mg Hydroxide 30 ml Q6H PRN PO; Start 08/20/25 at 15:30; Stop 09/19/25 at 15:29 Lactulose 20 gm BID PRN PO; Start 08/20/25 at 15:30; Stop 09/19/25 at 15:29 Nitroglycerin 0.4 mg PROTOCOL PRN SL; Start 08/20/25 at 15:30; Stop 09/19/25 at 15:29 Guaifenesin/ Dextromethorphan 10 ml Q4H PRN PO; Start 08/20/25 at 15:30; Stop 09/19/25 at 15:29 Guaifenesin 200 mg Q4H PRN PO; Start 08/20/25 at 15:30; Stop 09/19/25 at 15:29 Loperamide HCl 2 mg Q6H PRN PO; Start 08/20/25 at 15:30; Stop 09/19/25 at 15:29 Docusate Sodium 100 mg BID PRN PO; Start 08/20/25 at 15:30; Stop 09/19/25 at 15:29 Polyethylene Glycol 17 gm DAILY PRN PO; Start 08/20/25 at 15:30; Stop 09/19/25 at 15:29 Lidocaine HCl/Al Hydroxide/Mg Hydroxide/ Dicyclomine HCl 20ML OR AD MAALOX P... Q6H PRN PO; Start 08/20/25 at 15:30; Stop 09/19/25 at 15:29 Artificial Tears 1 DROP Q2H PRN OP; Start 08/20/25 at 15:30; Stop 09/19/25 at 15:29 Benzocaine 1 each Q2H PRN MM; Start 08/20/25 at 15:30; Stop 09/19/25 at 15:29 Insulin Human Lispro INSULIN SLIDING SCAL... ACHS SQ; Start 08/20/25 at 16:30; Stop 09/19/25 at 16:29 Ceftriaxone Sodium 2 gm Q24H IVPB Last administered on 08/21/25at 14:42; Start 08/21/25 at 15:30; Stop 08/31/25 at 15:29 Aspirin 81 mg DAILY PO Last administered on 08/21/25at 09:03; Start 08/21/25 at 09:00; Stop 09/20/25 at 08:59 Heparin Sodium (Porcine) 5,000 unit Q12H SQ Last administered on 08/21/25at 11:42; Start 08/21/25 at 10:00; Stop 09/20/25 at 09:59 Ranolazine 500 mg BID PO; Start 08/21/25 at 21:00; Stop 09/20/25 at 20:59 Clopidogrel Bisulfate 75 mg DAILY PO; Start 08/22/25 at 09:00; Stop 09/21/25 at 08:59 JOSE BURLESON MD Aug 21, 2025 15:45
[2025-08-21 16:00] VITALS: BP 124/63; PULSE 82; RESP 18; TEMP 98.5
[2025-08-21 20:00] VITALS: O2SAT 98
[2025-08-21 20:36] VITALS: BP 123/69; PULSE 85; RESP 18; TEMP 97.8
[2025-08-21] MEDS: RANOLAZINE 500 MG TAB.SR.12H PO SCH (21:21)
[2025-08-22 00:28] VITALS: BP 127/74; PULSE 94; RESP 18; TEMP 98.2
[2025-08-22 04:11] VITALS: BP 137/69; PULSE 81; RESP 18; TEMP 98.1
[2025-08-22 08:00] VITALS: BP 103/43; PULSE 54; RESP 17; TEMP 98; O2SAT 98
--- NOTE | 2025-08-22 11:58 | PN ---
[facility] CARDIOLOGY PROGRESS NOTE Date Patient Seen: Aug 22, 2025 Time of Visit: 11:49 Interval History: The patient was admitted with typical sounding chest pain, however she had only minimal luminal irregularities on her cardiac catheterization on 04/03/2024. She underwent catheter ablation for atrial flutter on 06/26/2025. She has worn a three day monitor which she just removed today. Her troponins were 20, 25, in 22. She has had no further symptoms here in the hospital and she has had no arrhythmias on telemetry. Physical Examination: General: The patient is in no apparent distress HEENT grossly within normal limits Lungs are clear Heart is regular with no murmurs Abdomen is benign Extremities are without edema. Laboratory: [ ] Hematology Labs: Test 08/21/25 09:51 Range/Units White Blood Count 7.2 4.8-10.8 K/uL Red Blood Count 3.24 L 4.00-5.50 MIL/uL Hemoglobin 11.0 L 12.0-16.0 g/dL Hematocrit 34.3 L 36-48 % Mean Corpuscular Volume 105.9 H 79-99 fL Mean Corpuscular Hemoglobin 34.0 H 27.0-33.0 pg Mean Corpuscular Hemoglobin Concent 32.1 32.0-36.0 g/dL Red Cell Distribution Width 12.9 11.0-15.5 % Platelet Count 188 130-400 K/uL Mean Platelet Volume 11.1 H 7.5-10.5 fL Nucleated Red Blood Cells 0.0 0.0-0.19 % Chemistry Labs: Test 08/22/25 05:44 08/21/25 09:51 Range/Units Whole Blood Glucose 92 70-110 MG/DL Bedside Glucose Comment Notified Nurse Sodium Level 143 136-145 mmol/L Potassium Level 4.3 3.5-5.1 mmol/L Chloride Level 107 101-111 mmol/L Carbon Dioxide Level 26 21-32 mmol/L Blood Urea Nitrogen 74 H 7-18 mg/dL Creatinine 2.9 H 0.5-1.0 mg/dL Glomerular Filtration Rate Calc 16 >90 mL/min Random Glucose 157 H 70-105 mg/dL Total Calcium 9.0 8.5-10.1 mg/dL Total Bilirubin 0.6 0.2-1.0 mg/dL Aspartate Amino Transf (AST/SGOT) 14 10-37 U/L Alanine Aminotransferase (ALT/SGPT) 15 12-78 U/L Alkaline Phosphatase 87 50-136 U/L Troponin I High Sensitivity 22 4-50 ng/L Total Protein 6.4 6.0-8.3 g/dL Albumin 3.3 L 3.5-5.0 g/dL Impression: 1. Chest pain with underlying near-normal coronary arteries with only minimal luminal irregularities in March of this year 2. Normal troponins x3 3. Status post atrial flutter ablation in June of this year Plan: 1. In his possible that the patient developed chest pain secondary to either recurrent atrial flutter or another arrhythmia. Her three day monitor will be interpreted on Sunday. 2. The patient can be discharged home. 3. Follow up next 1-[address] Hearn 4. If there are any significant findings on the monitor the patient will be contacted and seen sooner. DIRK SCOTT MD Aug 22, 2025 11:58
[2025-08-22 12:00] VITALS: BP 115/65; PULSE 86; RESP 16; TEMP 97.9
--- NOTE | 2025-08-22 13:52 | DS ---
[facility] DISCHARGE SUMMARY Date Patient Seen: Aug 22, 2025 Time of Visit: 13:52 Supervising Physician: Dr. Arnold Aguila Primary Care Physician: Dr. Jesus Montaño Outpatient Specialists: [ ] Inpatient Consults: Dr. Glover PROBLEM LIST: Acute angina, POA, no intervention per cardiology, started on plavix Acute cystitis, asymptomatic bacteruria, POA, ruled out, urine culture negative Acute on chronic kidney disease IV, stable Hypertension Hyperlipidemia Chronic macrocytic anemia Hypothyroidism History of CAD s/p multiple stent Obesity, BMI 33 HPI (per admitting provider) 75-year-old female with past medical history of hypertension, hyperlipidemia, CAD s/p multiple stents, hypothyroidism, who presented to ED via private vehicle with complaint of intermittent substernal chest pain and found to have possible angina pectoris. Patient was seen and examined in ED with no relatives present at bedside. Her chest pain started following use of bathroom to urinate. Mostly at the center of her chest. According to her she has been having on and off chest pain for the past several weeks, usually relieved with rest. In ED chest x-ray was done showed no acute intrapulmonary process, her EKG and troponin level were unremarkable, CBC showed chronic anemia, her chemistry consistent with chronic kidney disease. At present patient is currently hemodynamically stable, on room air with appropriate oxygen saturation, denies any chest pain, shortness of breath, fever, cough, abdominal pain, or diarrhea. Patient denies any smoking, alcohol intake, or illicit drug use. HOSPITAL COURSE: Patient was admitted due to angina. Cardiology was consulted. They started patient on Plavix along with aspirin and continued on Ranexa. No intervention and she has been cleared by cardiology for discharge. Today, she is sitting on bedside chair. AAOX3. Denies any chest pain, abdominal pain, nausea or vomiting. Received 2 days of IV Rocephin for suspected UTI, urine culture negative, patient denies dysuria or any issues. States she is ready to go home. Stable for discharge. New Medications: Clopidogrel Bisulfate (Plavix) 75 Mg Tablet 75 MG PO DAILY, #30 TAB Ranolazine (Ranexa) 500 Mg Tab.er.12h 500 MG PO BID, #60 TAB Continued Medications: Allopurinol (Allopurinol) 100 Mg Tablet 1 TAB PO DAILY for 30 Days, #30 TAB 0 Refills Aspirin (Aspirin) 81 Mg Tab.chew 81 MG PO DAILY, TAB.CHEW Cholecalciferol (Vitamin D3) (Vitamin D3) 10 Mcg (400 Unit) Tablet 10 MCG PO DAILY, TAB Ferrous Sulfate (Ferrous Sulfate) 325 Mg (65 Mg Iron) Ectab 1 TAB PO DAILY for 30 Days, #30 TAB 0 Refills Furosemide (Lasix 40Mg Tab) 40 Mg Tablet 1 TAB PO DAILY for 30 Days, #30 TAB 0 Refills Levothyroxine Sodium (Levothyroxine Sodium) 150 Mcg Tablet 1 TAB PO ACBKFST for 30 Days, #30 TAB 0 Refills Lisinopril (Lisinopril) 5 Mg Tablet 1 TAB PO HS Medroxyprogesterone Acetate (Medroxyprogesterone Acetate) 5 Mg Tablet 1 TAB PO DAILY for 30 Days, #30 TAB 0 Refills Metoprolol Tartrate (Lopressor) 25 Mg Tab 12.5 MG PO BID, #60 TAB Nitroglycerin (Nitroglycerin) 0.4 Mg Tab.subl 1 TAB SL AD for chest pain, #25 TAB 0 Refills 1st sign of attack; may repeat every 5 mins; if pain persists after 3 in 15 min, medical attention is recommended Pravastatin Sodium (Pravastatin Sodium) 40 Mg Tablet 1 TAB PO HS Ranolazine (Ranolazine ER) 500 Mg Tab.er.12h 500 MG PO AM Sodium Bicarbonate (Sodium Bicarbonate) 650 Mg Tablet 1 TAB PO DAILY for indigestion for 30 Days, #60 TAB 0 Refills Spironolactone (Spironolactone) 25 Mg Tablet 1 TAB PO BID PHYSICAL EXAM: GENERAL: alert, weak, awake oriented x 3 on room air. HEENT: EOMI, Sclera non icteric, moist mucosa NECK: Supple, no JVD, trachea midline LUNGS: Clear breath sounds bilaterally. No wheezes HEART: Regular rate and rhythm. Normal S1 and S2, without murmurs ABD: Abdomen soft, nontender. Bowel sounds present EXT: No clubbing cyanosis or edema NEURO: AAOX3, follows commands FOLLOW-UP: Follow-up with PCP in 2-3 days Follow up with cardiology RECOMMENDATIONS: See Discharge Instructions This case was seen and discussed with my supervising physician. More than 30 min utes spent on discharge process, including evaluation of the patient, discussion with nursing staff, medication reconciliation and follow-up appointments AYE AGUILA Aug 22, 2025 13:52
[2025-08-22 16:00] VITALS: BP 119/69; PULSE 78; RESP 18; TEMP 98.2
--- NOTE | 2025-08-22 16:50 | NUR ---
discharge instructions provided to patient , patient verbalized understanding
--- NOTE | 2025-08-22 16:55 | NUR ---
PER PRIMARY GAVE PLAVIX DOSE TO TAKE FOR TOMORROW AT HOME , ALSO GAVE RENEXA FOR TOMORROW DUE TO HER PHARMACY BEING CLOSED
== END 2025-08-22 17:00 | disposition home or self-care (01) ==
LOC: EDH 11:02 → EDHIP 15:22 → 4CH 22:11
PROVIDERS: ADMIT Internal Medicine; ATTEND Internal Medicine
DX: I25.119 Atherosclerotic heart disease of native coronary artery with unspecified angina pectoris (principal); I13.0 Hypertensive heart and chronic kidney disease with heart failure and stage 1 through stage 4 chronic kidney disease, or unspecified chronic kidney disease; N18.4 Chronic kidney disease, stage 4 (severe); E03.9 Hypothyroidism, unspecified; E78.00 Pure hypercholesterolemia, unspecified; N30.00 Acute cystitis without hematuria; N17.9 Acute kidney failure, unspecified; E66.9 Obesity, unspecified; R53.1 Weakness; Z68.33 Body mass index [BMI] 33.0-33.9, adult; Z79.82 Long term (current) use of aspirin; Z79.899 Other long term (current) drug therapy; Z95.5 Presence of coronary angioplasty implant and graft; Z98.890 Other specified postprocedural states
CPT/HCPCS: 96365; 96366 ×2; 99285; 84484 ×3; 80048; 83880; 85025; 87086; 82948 ×9; 81001; 36415 ×2; 71045; 93005; 96372 ×2; 80053; 85027; G0378 ×50; J0696 ×2; J1644 ×3